=== PATIENT | female | born 1975 | race Two or more races ===

== ENCOUNTER 2024-04-08 14:17 | Emergency (ER) | payer MEDICAID, SELFPAY ==
[2024-04-08 14:18] VITALS: BP 156/88; PULSE 62; RESP 20; TEMP 36.8; O2SAT 96
[2024-04-08 14:22] VITALS: PULSE 76; RESP 20; O2SAT 96; BMI 32.3
--- NOTE | 2024-04-08 14:33 | XR_ITS ---
Examination: AP chest single view Technique one AP portable upright chest single view Exam date and time: April 08, 2024 1450 hrs. Comparison January 28, 2024 Indications: Coughing fever today. Findings: Fairly diffuse bilateral pneumonia Minor prominence left ventricle Moderate osteopenia Impression: Diffuse bilateral pneumonia
[2024-04-08] MEDS: ALBUTEROL/IPRATROPIUM (Duoneb) RT SOL 3 ML NEBU INH (14:44)
[2024-04-08 14:45] VITALS: PULSE 63; RESP 18; O2SAT 99
[2024-04-08] MEDS: predniSONE 20 MG TABLET 60 MG PO (14:46)
--- NOTE | 2024-04-08 15:25 | PD.EDURI ---
Upper Respiratory Inf. RME/HPI General Chief Complaint: Flu Like Symptoms Stated Complaint: flu like symptoms Time Seen by Provider: 04/08/24 14:28 Arrival date/time: 04/08/24 14:17 RME / HPI RME / HPI Narrative: This section includes all my notes and documentations, including HPI, PE, and ED course. Derrick Simon MD HPI: 48-year-old female here to be evaluated with about a week history of worsening cough, productive cough, purulent sputum, and dyspnea. No significant fever or chills or bodyaches. No chest pain. No other complaints. ROS: All negative except as documented in HPI. Physical Exam: General: Alert and oriented. Obviously ill with coughing. Eyes: Conjunctivae and lids clear. ENT: No nasal congestion. Pharynx normal. Tympanic membrane normal bilaterally. Neck: Supple. Heart: RRR. Lungs: No respiratory distress. Good air movement with mild rhonchi. Legs: No clubbing, cyanosis, edema. Skin: Warm and dry. Neuro: Alert and oriented X 3. I reviewed all diagnostic test results. My interpretation of the chest x-ray is infiltrates. COVID/influenza negative. At this point, diagnoses include pneumonia. Treatment here included prednisone and DuoNeb and Zithromax. Significant improvement noted. Recommended a trial of outpatient treatment. Based on my best medical judgment, made decision no further evaluation or treatment indicated at this time. Patient understands and agrees to the discharge instructions customized and printed, see below. Discharge instructions from Dr. Simon: --No physical exertion for 3 days to help rest the lungs. ?No smoking or exposure to smoking or pets or dust or cold or humidity. --Zithromax to kill the germs causing the pneumonia. --Prednisone to help decrease the swelling in the airways. --Albuterol 2 puffs every 4-6 hours for 3 days to help keep the airways open. Then as needed for cough or shortness of breath. --See a private doctor next week for recheck. --Seek immediate medical care with worsening or with any concerns. Derrick Simon MD Related Data Home Medications ?Medication ?Instructions ?Recorded ?Confirmed escitalopram oxalate 10 mg tablet 10 mg PO QDAY 01/28/24 01/28/24 gabapentin 600 mg tablet 600 mg PO TID 01/28/24 01/28/24 methadone 5 mg tablet 140 mg PO 0600 01/28/24 01/28/24 olanzapine 5 mg tablet 5 mg PO HS 01/28/24 01/28/24 Previous Rx's ?Medication ?Instructions ?Recorded albuterol sulfate 90 mcg/actuation 1 inh inhalation QID PRN shortness 02/02/24 aerosol inhaler of breath or wheezing #8.5 grams fluconazole 200 mg tablet 400 mg (2 x 200 mg) PO QDAY 3 02/02/24 (Diflucan) months #180 tabs albuterol sulfate 90 mcg/actuation 2 inh inhalation QID PRN shortness 04/08/24 aerosol inhaler of breath or wheezing #8.5 grams azithromycin 500 mg tablet 500 mg PO QDAY 3 days #3 tabs 04/08/24 (Zithromax TRI-ANNA) prednisone 20 mg tablet 40 mg PO DAILY 3 days #6 tabs 04/08/24 Allergies Allergy/AdvReac Type Severity Reaction Status Date / Time No Known Allergies Allergy Verified 04/08/24 14:25 Course Quality Measures none Orders Category Date Time Status Bedside COVID-19 Antigen Test NOW Care 04/08/24 14:33 Completed Bedside Influenza A&B Antigen Test NOW Care 04/08/24 14:33 Completed XR chest 1V portable Stat Exams 04/08/24 14:33 Completed Albuterol/Ipratr Rt Lorena [Duoneb Rt Lorena] Med 04/08/24 14:32 Discontinued 3 ml INH X1 ONE Azithromycin Po [Zithromax PO] Med 04/08/24 15:34 Discontinued 500 mg PO X1 ONE predniSONE Med 04/08/24 14:32 Discontinued 60 mg PO X1 ONE Vital Signs Vital signs: Vital Signs Temperature 98.3 F 04/08/24 14:18 Pulse Rate 62 04/08/24 14:18 Respiratory Rate 20 04/08/24 14:18 Blood Pressure 156/88 H 04/08/24 14:18 Pulse Oximetry (%) 96 04/08/24 14:18 Oxygen Delivery Method Room Air 04/08/24 14:18 Upper Respiratory Infection Patient data External records reviewed:: [facility] previous records Clinical information provided by:: patient Social determinants that could affect healthcare access:: substance use Patient has the following chronic illnesses:: Substance abuse How is presenting disease/condition affected by chronic disease/condition?: exacerbated by Evaluation data The following diagnostics were reviewed and interpreted by me:: lab results and radiology exam(s) Lab and/or radiology exams considered but not ordered:: None Interpretation Summary: Bronchitis Medications / Prescriptions Medications or Prescriptions considered but not ordered:: None Medication administrations:: Medication Administration History Discontinued Medications Albuterol/Ipratropium (Albuterol/Ipratropium (Duoneb) Rt Lorena 3 Ml Nebu) 3 ml INH X1 ONE Stop: 04/08/24 14:33 Last Admin: 04/08/24 14:44 Dose: 3 ml Documented By: RG Azithromycin (Azithromycin 250 Mg Tablet) 500 mg PO X1 ONE Stop: 04/08/24 15:35 Last Admin: 04/08/24 15:39 Dose: 500 mg Documented By: Prednisone (Prednisone 20 Mg Tablet) 60 mg PO X1 ONE Stop: 04/08/24 14:33 Last Admin: 04/08/24 14:46 Dose: 60 mg Documented By: Prednisone and DuoNeb and Zithromax Consultations Consultation(s) initiated? (list below): No Diagnosis Upper Respiratory Differential Diagnosis: upper respiratory infection, croup, otitis media, sinusitis, viral infection, bronchitis, influenza, pharyngitis and other (Pneumonia) Most likely diagnosis given after review of the tests above:: Bronchitis Admission Indicated Admission indicated?: not indicated Admission Request Was there a request for admission?: No Disposition Plan Disposition Plan: Discharge Discharge Attestation Discharge Attestation: The patient and all family members were given an opportunity to ask questions and understood the discharge instructions. Discharge instructions specifically effects, indications for sooner follow up or return to the emergency department, and the expected course of current diagnosis. Patient condition: Stable Discharge Plan Plan Patient Disposition: HOME (Self Care) Prescriptions/Referrals Prescriptions/Med Rec: New prednisone 20 mg tablet 40 mg PO DAILY 3 Days Qty: 6 0RF Taper: Prednisone Taper 20 mg DAILY for 2 Days and 0 Hour 10 mg DAILY for 2 Days and 0 Hour 5 mg DAILY for 7 Days and 0 Hour albuterol sulfate 90 mcg/actuation HFA aerosol inhaler 2 inh inhalation QID PRN (Reason: shortness of breath or wheezing) Qty: 8.5 0RF azithromycin [Zithromax TRI-ANNA] 500 mg tablet 500 mg PO QDAY 3 Days Qty: 3 0RF No Action gabapentin 600 mg tablet 600 mg PO TID Patient Comments: TAKE 1 TABLET BY MOUTH THREE TIMES A DAY olanzapine 5 mg tablet 5 mg PO HS Patient Comments: TAKE 1 TABLET BY MOUTH EVERYDAY AT BEDTIME methadone 5 mg Tablet 140 mg PO 0600 escitalopram oxalate 10 mg tablet 10 mg PO QDAY fluconazole [Diflucan] 200 mg tablet 400 mg PO QDAY 90 Days Qty: 180 0RF albuterol sulfate 90 mcg/actuation HFA aerosol inhaler 1 inh inhalation QID PRN (Reason: shortness of breath or wheezing) Qty: 8.5 0RF Referrals: Karena Tsai MD [Primary Care Provider] - In 1 week Problem List Clinical Impression: Pneumonia Patient/Caregiver Discharge Instructions Discharge Activity: activity as tolerated Education Materials: ED Pneumonia (Adult) Additional Instructions: Discharge instructions from Dr. Simon: --No physical exertion for 3 days to help rest the lungs. ?No smoking or exposure to smoking or pets or dust or cold or humidity. --Zithromax to kill the germs causing the pneumonia. --Prednisone to help decrease the swelling in the airways. --Albuterol 2 puffs every 4-6 hours for 3 days to help keep the airways open. Then as needed for cough or shortness of breath. --See a private doctor next week for recheck. --Seek immediate medical care with worsening or with any concerns. Print Language: Kinyarwanda Stand Alone Forms: Елена Award Info., Patient Portal Info Letter
[2024-04-08] MEDS: AZITHROMYCIN 250 MG TABLET 500 MG PO (15:39)
== END 2024-04-08 15:47 | disposition home or self-care (01) ==
PROVIDERS: Emergency Provider Emergency Medicine; PCP Family Medicine
DX: J18.9 Pneumonia, unspecified organism (principal)
CPT/HCPCS: 71045; 87400; 87811; 94640; 99283; A9270; J7512

== ENCOUNTER 2024-06-08 09:01 | Emergency (ER) | payer MEDICAID, SELFPAY ==
[2024-06-08] VITALS (9 sets, daily range): BP systolic 116–165; BP diastolic 70–81; PULSE 64–121; RESP 11–24; TEMP 36.7–37.1; O2SAT 88–99; BMI 39.4
[2024-06-08] MEDS: NALOXONE INJ 1 MG/ML SYRINGE 2 ML 0.4 MG IV (09:15)
[2024-06-08] MEDS: ALBUTEROL/IPRATROPIUM (Duoneb) RT SOL 3 ML NEBU INH (09:16)
--- NOTE | 2024-06-08 09:23 | EKG_ITS ---
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
--- NOTE | 2024-06-08 09:23 | XR_ITS ---
Examination: AP chest single view TECHNIQUE: AP portable semiupright chest single view Exam date and time: March 08, 2025 1023 hours Comparison April 08, 2024 INDICATIONS: Chest pain today. FINDINGS: Mild to moderate CHF Consider superimposed bilateral pneumonia Severe osteopenia with multiple old right-sided rib fractures IMPRESSION: Mild to moderate CHF Consider superimposed bilateral pneumonia
[2024-06-08 09:41] LABS: Lactate (Lactic Acid) 1.4 mMol/L (0.4-2.0)
--- NOTE | 2024-06-08 09:47 | PD.EDNV ---
Nausea/Vomit./Diarrhea-RME/HPI General Chief complaint: Shortness of Breath/Dyspnea Stated complaint: NAUSEA / VOMITING WITH SOB POST METHADONE Time Seen by Provider: 06/08/24 09:22 Arrival date/time: 06/08/24 09:01 RME / HPI RME / HPI Narrative: 48 year old female with history of previous IV drug use and opiate dependance, on methadone, presents to the ED BIBA from home for nausea, vomiting, and lethargy today. Per medics report, on scene patient was very lethargic and family there had reported she became that way after taking 145mg of Methadone this morning. State patient was saturating 95% on room air and maintaining airway. Prehospital BS 138. On arrival to ED, no further history was obtainable from patient due to mental status. Related Data Home Medications ?Medication ?Instructions ?Recorded ?Confirmed escitalopram oxalate 10 mg tablet 10 mg PO QDAY 01/28/24 01/28/24 gabapentin 600 mg tablet 600 mg PO TID 01/28/24 01/28/24 methadone 5 mg tablet 140 mg PO 0600 01/28/24 01/28/24 olanzapine 5 mg tablet 5 mg PO HS 01/28/24 01/28/24 Previous Rx's ?Medication ?Instructions ?Recorded albuterol sulfate 90 mcg/actuation 1 inh inhalation QID PRN shortness 02/02/24 aerosol inhaler of breath or wheezing #8.5 grams albuterol sulfate 90 mcg/actuation 2 inh inhalation QID PRN shortness 04/08/24 aerosol inhaler of breath or wheezing #8.5 grams azithromycin 250 mg tablet 250 mg PO QDAY 4 days #4 tabs 06/08/24 Allergies Allergy/AdvReac Type Severity Reaction Status Date / Time No Known Allergies Allergy Verified 04/08/24 14:25 Review of Systems Review of Systems ROS Unobtainable: unobtainable due to mental status Past Medical History Past Medical History GASTROINTESTINAL: Positive Gall Bladder Disease and Obesity MUSCULOSKELETAL: Positive Musculoskeletal Disorders OTHER HISTORY: Positive Blood Transfusions Surgical History SURGICAL: Positive Abdominal Surgery, Joint Replacement and Section Social History SMOKING STATUS: Current every day smoker SUBSTANCE USE: former substance user and heroin ED Exam Narrative Physical exam: GENERAL APPEARANCE: Obese, there is vomit on chin, snoring respirations, responsive to painful stimuli, patient unable to provide any history HEENT: Normocephalic, atraumatic; pupils equal, round, reactive to light; mucous membranes pink, moist; oropharynx clear NECK: Supple LUNGS: wheezes with snoring respirations, no rales, no rhonchi HEART: Regular rate, regular rhythm; normal S1, S2; no murmurs ABDOMEN: slightly distended; multiple circular bruising in various stages of healing on abdomen; normal BS; soft, no guarding, no rebound; no masses, no organomegaly, no hernia BACK: no CVA tenderness EXTREMITIES: atraumatic; no edema NEUROLOGIC: responsive to painful stimuli, patient unable to provide any history SKIN: warm, dry, normal color; no rashes Course Course Course Narrative: 0916: Patient given 0.25mg of Narcan with change, patient screaming and yelling get this off of me and help . 1500: Patient responds to name and is requesting water. 1730: Patient ate a sandwich and tolerated well. Will DC home. Quality Measures none Orders Category Date Time Status Complaint Evaluation Supervisor NOW Care 06/08/24 09:23 Active EKG (ED ONLY) *Do not use* NOW Care 06/08/24 09:23 Completed EKG (ED Only) Stat Exams 06/08/24 09:23 Draft XR chest 1V portable Stat Exams 06/08/24 09:23 Completed Alcohol, Blood Medical Stat Lab 06/08/24 09:34 Completed B-Type Natriuretic Peptide Stat Lab 06/08/24 09:34 Completed Blood Culture (Lab) Stat Lab 06/08/24 10:08 Received CBC Stat Lab 06/08/24 09:34 Completed Comprehensive Metabolic Panel Stat Lab 06/08/24 09:34 Completed Drug Screen,Urine Stat Lab 06/08/24 09:56 Completed Lactate (Lactic Acid) Stat Lab 06/08/24 09:34 Completed Lipase Stat Lab 06/08/24 09:34 Completed Magnesium Stat Lab 06/08/24 09:34 Completed Partial Thromboplastin Time Stat Lab 06/08/24 09:34 Completed Procalcitonin Stat Lab 06/08/24 09:34 Completed Prothrombin Time with INR Stat Lab 06/08/24 09:34 Completed Troponin I Stat Lab 06/08/24 09:34 Completed UA, C/S IF [Urinalysis, C/S if Indicated] Stat Lab 06/08/24 09:56 Completed Albuterol/Ipratr Rt Lorena [Duoneb Rt Lorena] Med 06/08/24 09:07 Discontinued 3 ml .ROUTE .STK-MED ONE Albuterol/Ipratr Rt Lorena [Duoneb Rt Lorena] Med 06/08/24 09:16 Discontinued 3 ml INH X1 ONE Azithromycin Inj [Zithromax Inj] 500 mg Med 06/08/24 14:21 Discontinued Sodium Chloride 0.9% 250 ml [Ns] 250 ml IV X1 NALOXONE INJ (Syringe) [Narcan Inj (Syringe)] Med 06/08/24 09:06 Discontinued 0.4 mg IV X1 ONE Ondansetron Inj [Zofran Inj] Med 06/08/24 09:26 Discontinued 4 mg IV X1 ONE Vital Signs Vital signs: Vital Signs Temperature 98.0 F 06/08/24 09:14 Pulse Rate 82 06/08/24 09:14 Respiratory Rate 21 H 06/08/24 09:14 Blood Pressure 135/81 H 06/08/24 09:14 Pulse Oximetry (%) 92 L 06/08/24 09:14 Oxygen Delivery Method Room Air 06/08/24 09:14 Pulse ox is 92% on room air which is adequate. Nausea/Vomiting/Diarrhea MDM Narrative MDM Narrative:: Argenis Cast am scribing for and in the presence of Dr. Fu. Patient data External records reviewed:: [facility] previous records (I reviewed admission from 01/28/2024 through 02/03/2024) and EMS form Clinical information provided by:: EMS Social determinants that could affect healthcare access:: substance use (Hx of IV heroin use, methamphetamine use. Currently on Methadone. ) Patient has the following chronic illnesses:: previous IV drug use and opiate dependance, on methadone How is presenting disease/condition affected by chronic disease/condition?: exacerbated by Evaluation data The following diagnostics were reviewed and interpreted by me:: lab results, radiology exam(s) and EKG tracing(s) (Sinus rhythm, rate 95, no acute ischemic changes, no STEMI ) Lab and/or radiology exams considered but not ordered:: None Interpretation Summary: Ordering Physician: Criselda Fu MD Date of Service: 06/08/24 Procedure(s): XR chest 1V portable Accession Number(s): [id number] cc: Benoit Hinson MD; Criselda Fu MD~ Examination: AP chest single view TECHNIQUE: AP portable semiupright chest single view Exam date and time: March 08, 2025 1023 hours Comparison April 08, 2024 INDICATIONS: Chest pain today. FINDINGS: Mild to moderate CHF Consider superimposed bilateral pneumonia Severe osteopenia with multiple old right-sided rib fractures IMPRESSION: Mild to moderate CHF Consider superimposed bilateral pneumonia Dictated By: Benoit Hinson MD Signed By: <Electronically signed by Benoit Hinson MD in OV> 06/08/24 1104 Medications / Prescriptions Medications / Prescriptions considered but not ordered:: None Medication administrations:: Medication Administration History Discontinued Medications Albuterol/Ipratropium (Albuterol/Ipratropium (Duoneb) Rt Lorena 3 Ml Nebu) Confirm Administered Dose 3 ml .ROUTE .STK-MED ONE Stop: 06/08/24 09:08 Last Admin: 06/08/24 10:45 Dose: Not Given Documented By: RD Non-Admin Reason: Duplicate Medication on eMAR Albuterol/Ipratropium (Albuterol/Ipratropium (Duoneb) Rt Lorena 3 Ml Nebu) 3 ml INH X1 ONE Stop: 06/08/24 09:17 Last Admin: 06/08/24 09:16 Dose: 3 ml Documented By: MR Azithromycin 500 mg/ Sodium (Chloride) 250 mls @ 250 mls/hr IV X1 ONE Stop: 06/08/24 15:20 Last Admin: 06/08/24 16:44 Dose: 250 mls/hr Documented By: ROBERTO Naloxone HCl (Naloxone Inj 1 Mg/Ml Syringe 2 Ml) 0.4 mg IV X1 ONE Stop: 06/08/24 09:07 Last Admin: 06/08/24 09:15 Dose: 0.4 mg Documented By: ROBERTO Comments: INITIAL DOSE GIVEN 0.25MG Ondansetron HCl (Ondansetron Inj 2 Mg/Ml Inj 2 Ml) 4 mg IV X1 ONE; Protocol Stop: 06/08/24 09:27 Last Admin: 06/08/24 10:00 Dose: Not Given Documented By: RD Non-Admin Reason: Patient Refused See above Consultations Consultation(s) initiated? (list below): No Diagnosis Nausea Differential Diagnosis: gastroenteritis, drug-induced nausea and vomiting, dehydration and other (Overdose ) Most likely diagnosis given after review of the tests above:: SOB PNA Vomiting Admission Indicated Admission indicated?: not indicated Admission Request Was there a request for admission?: No Disposition Plan Disposition Plan: Discharge Discharge Attestation Discharge Attestation: The patient and all family members were given an opportunity to ask questions and understood the discharge instructions. Discharge instructions specifically effects, indications for sooner follow up or return to the emergency department, and the expected course of current diagnosis. Patient condition: Stable Discharge Plan Plan Patient Disposition: HOME (Self Care) Prescriptions/Referrals Prescriptions/Med Rec: New azithromycin 250 mg tablet 250 mg PO QDAY 4 Days Qty: 4 0RF Rx Instructions: start on day 2 of therapy No Action albuterol sulfate 90 mcg/actuation HFA aerosol inhaler 2 inh inhalation QID PRN (Reason: shortness of breath or wheezing) Qty: 8.5 0RF gabapentin 600 mg tablet 600 mg PO TID Patient Comments: TAKE 1 TABLET BY MOUTH THREE TIMES A DAY olanzapine 5 mg tablet 5 mg PO HS Patient Comments: TAKE 1 TABLET BY MOUTH EVERYDAY AT BEDTIME methadone 5 mg Tablet 140 mg PO 0600 escitalopram oxalate 10 mg tablet 10 mg PO QDAY albuterol sulfate 90 mcg/actuation HFA aerosol inhaler 1 inh inhalation QID PRN (Reason: shortness of breath or wheezing) Qty: 8.5 0RF Referrals: Felicia Hodges AMMUNITION SPECIALIST [Primary Care Provider] - In 1 week Problem List Clinical Impression: SOB (shortness of breath), Pneumonia, Vomiting Patient/Caregiver Discharge Instructions Education Materials: Self-Care for Vomiting and Diarrhea, ED Pneumonia (Adult) Print Language: Sammarinese Stand Alone Forms: Елена Award Info., Patient Portal Info Letter
[2024-06-08 09:59] LABS: Basophils % (Auto) 0 % (0-2.5); Eosinophils % (Auto) 0 % (0-10); Hematocrit 31.6 % (36.0-46.0); Hemoglobin 10.1 g/dL (12.0-16.0); Immature Granulocytes % (Auto) 0 % (0-0); Immature Granulocytes Auto 0.01 Thou/mm3 (0.00-0.00); Lymphocytes % (Auto) 24 % (10-50); Mean Corpuscular Hemoglobin 27.8 pg (25.0-35.0); Mean Corpuscular Volume 87 fL (80-100); Monocytes # (Auto) 0.5 Thou/mm3 (0.0-0.8); Monocytes % (Auto) 11 % (0-12); Neutrophils # (Auto) 2.7 Thou/mm3 (1.8-7.7); Neutrophils % (Auto) 65 % (37-80); Nucleated Red Blood Cell % 0 /100 WBC (0); Platelet Count 115 Thou/mm3 (140-440); RDW Standard Deviation 48.9 fL (36.4-46.3); Red Blood Count 3.63 Miln/mm3 (4.00-5.20); White Blood Count 4.2 Thou/mm3 (3.6-11.0)
[2024-06-08 10:09] LABS: Partial Thromboplastin Time 28.5 Seconds (22.0-36.0)
[2024-06-08 10:21] LABS: Collection Type, Urine Catheter
[2024-06-08 10:24] LABS: B-Type Natriuretic Peptide 22 pg/mL (0-100)
[2024-06-08 10:30] LABS: Bilirubin,Urine Negative (Negative); Blood,Urine Negative (Negative); Clarity,Urine Clear (Clear/Hazy); Color,Urine Lt-Yellow (Lt Yel-Yel); Culture Indicated,Urine Not Indicated; Glucose, Urine Negative (Negative); Ketones,Urine Negative (Negative); Leukocyte Esterase,Urine Negative (Negative); Nitrite,Urine Negative (Negative); Protein,Urine Negative (Neg - Trace); RBC,Urine < 1 /hpf (0-3); Specific Gravity,Urine 1.019 (1.001-1.035); Squamous Epithelial Cell,Urine 2 /hpf (0-5); Urobilinogen,Urine Negative mg/dL (0.0-1.0); WBC,Urine 1 /hpf (0-5)
[2024-06-08 10:44] LABS: Amphetamine/Methamp Scrn,U Positive (Negative); Barbiturate Screen,Urine Negative (Negative); Benzodiazepines Screen,Urine Negative (Negative); Benzoylecgonine Screen, Ur Negative (Negative); Fentanyl Screen,Urine Negative (Negative); Opiate Screen,Urine Positive (Negative); THC Screen,Urine Negative (Negative)
[2024-06-08 10:44] LABS: Alanine Aminotransferase 46 U/L (10-49); Albumin, Serum 3.8 gm/dL (3.5-5.0); Albumin/Globulin Ratio 1.2 (1.2-2.2); Alcohol, Blood Medical < 3.0 mg/dL (0-10.0); Alkaline Phosphatase 122 U/L (46-116); Anion Gap 6 (7-16); Aspartate Amino Transferase 61 U/L (0-34); BUN/Creatinine Ratio 26 Ratio (12-20); Bilirubin,Total 0.3 mg/dL (0.3-1.2); Blood Urea Nitrogen 13 mg/dL (9-23); Calcium (Corrected) 9.2 mg/dL (8.5-10.1); Carbon Dioxide 29.8 mMol/L (20.0-31.0); Chloride 106 mMol/L (98-107); Creatinine (Component) 0.5 mg/dL (0.6-1.3); Estimated Creatinine Clearance 158.4 mL/min (>60); Globulin 3.2 gm/dL (2.3-3.5); Glucose 105 mg/dL (74-106); Lipase 23 U/L (12-53); Magnesium 1.9 mg/dL (1.6-2.6); Osmolality,Calculated 283 (275-295); Potassium 3.8 mMol/L (3.4-5.1); Procalcitonin 0.06 ng/ml (0.0-0.49); Sodium 142 mMol/L (136-145); Troponin I < 0.002 ng/mL (0.0-0.045); eGFR > 60 See Note
[2024-06-08] MEDS: AZITHROMYCIN INJ 500 MG in SODIUM CHLORIDE 0.9% 250 ML 250 ML 250 MG IV (16:44)
[2024-06-08] MEDS: MORPHINE SULF INJ 10 MG/ML VIAL 4 MG IVP (18:38)
== END 2024-06-08 19:15 | disposition home or self-care (01) ==
PROVIDERS: Emergency Provider Emergency Medicine; PCP Nurse Practitioner Family
DX: J18.9 Pneumonia, unspecified organism (principal); F11.20 Opioid dependence, uncomplicated; F17.290 Nicotine dependence, other tobacco product, uncomplicated; E66.9 Obesity, unspecified; Z68.39 Body mass index [BMI] 39.0-39.9, adult
CPT/HCPCS: 51701; 36415; 71045; 80053; 80307; 80320; 81001; 83605; 83690; 83735; 83880; 84145; 84484; 85025; 85610; 85730; 87040; 94640; 96365; 96375; 99284; J0456; J2270; J2310; J7050; G0480

== ENCOUNTER 2024-11-27 00:29 | Emergency (ER) | payer MEDICAID, SELFPAY ==
[2024-11-27 00:31] VITALS: PULSE 100; RESP 18; O2SAT 99; BMI 33.9
[2024-11-27 00:43] VITALS: BP 132/81; PULSE 132; RESP 18; TEMP 36.6; O2SAT 95
--- NOTE | 2024-11-27 01:40 | PD.EDRME ---
Rapid Medical Screening Exam RME Arrival date/time: 11/27/24 00:29 Chief Complaint: Extremity Problem,Nontraumatic Time Seen by Provider: 11/27/24 00:59 Vital signs: Vital Signs Temperature 97.9 F 11/27/24 00:43 Pulse Rate 132 H 11/27/24 00:43 Respiratory Rate 18 11/27/24 00:43 Blood Pressure 132/81 H 11/27/24 00:43 Pulse Oximetry (%) 95 11/27/24 00:43 Oxygen Delivery Method Room Air 11/27/24 00:43 Vital signs reviewed by provider: Yes RME Narrative: 49-year-old female presents to the ED with complaint of severe left lower extremity pain, edema, and redness. She denies fever but has had chills. She has had some nausea, but no vomiting or diarrhea. She states she has had an injury approximately 4 to 6 weeks ago. She has a prescription for clindamycin 3 tablets, 3 times daily for 10 days in her possession, which she states was prescribed for right elbow infection back in September. She denies any heart problems. She takes methadone 130 mg daily for previous narcotic addiction. I have greeted and performed a focused initial assessment of this patient. A comprehensive ED assessment and evaluation of the patient, analysis of all test results, and completion of the medical decision making process will be conducted by additional ED providers.
--- NOTE | 2024-11-27 03:02 | PD.EDEXREM ---
ED Extremity Problem RME/HPI General Chief complaint: Extremity Problem,Nontraumatic Stated complaint: SWELLING AND PAIN TO BLE Time Seen by Provider: 11/27/24 00:59 Arrival date/time: 11/27/24 00:29 RME / HPI RME / HPI Narrative: 49-year-old female presents to the ED with complaint of severe left lower extremity pain, edema, and redness. She denies fever but has had chills. She has had some nausea, but no vomiting or diarrhea. She states she has had an injury approximately 4 to 6 weeks ago. She has a prescription for clindamycin 3 tablets, 3 times daily for 10 days in her possession, which she states was prescribed for right elbow infection back in September. She denies any heart problems. She takes methadone 130 mg daily for previous narcotic addiction. I have greeted and performed a focused initial assessment of this patient. A comprehensive ED assessment and evaluation of the patient, analysis of all test results, and completion of the medical decision making process will be conducted by additional ED providers. This section includes all my notes and documentations, including HPI, PE, and ED course. Derrick Simon MD HPI: 49yo female here with leg pain and swelling (L > R). Reports chronic but severely worse in the past 24 hours. Has been wheelchair-bound due to severe left knee pain for the past 2 months. Left knee replacement is pending. She also reports left lower leg redness. No obvious fever or chills. No other complaints. ROS: All negative except as documented in HPI. Physical Exam: General: Alert and oriented. No acute distress when remaining still. Eyes: Conjunctivae and lids clear. ENT: No nasal congestion. Neck: Supple. Heart: RRR. Lungs: No respiratory distress. Good air movement. No significant rhonchi, wheezing, rales. Abdomen: Soft and nontender. Legs: Left lower leg remarkable for severe edema/erythema/calor/tenderness. Skin: Warm and dry. Neuro: Alert and oriented X 3. I reviewed all diagnostic test results. My interpretation of the EKG is sinus rhythm with no ST-T changes. My interpretation of the chest x-ray is equivocal infiltrates and/or vascular congestion, official radiology report is pending. My review of the US venous doppler bilateral leg report is no DVT. Blood tests remarkable for ESR 113, D-Dimer 2400, CRP 2.3, and LFT elevation. Urine specimen pending. CT scans pending. At 6 AM on 11/27/2024, the care of the patient was transferred to Dr. Fu. Derrick Simon MD Related Data Home Medications ?Medication ?Instructions ?Recorded ?Confirmed escitalopram oxalate 10 mg tablet 10 mg PO QDAY 01/28/24 01/28/24 gabapentin 600 mg tablet 600 mg PO TID 01/28/24 01/28/24 methadone 5 mg tablet 140 mg PO 0600 01/28/24 01/28/24 olanzapine 5 mg tablet 5 mg PO HS 01/28/24 01/28/24 Previous Rx's ?Medication ?Instructions ?Recorded albuterol sulfate 90 mcg/actuation 1 inh inhalation QID PRN shortness 02/02/24 aerosol inhaler of breath or wheezing #8.5 grams albuterol sulfate 90 mcg/actuation 2 inh inhalation QID PRN shortness 04/08/24 aerosol inhaler of breath or wheezing #8.5 grams Allergies Allergy/AdvReac Type Severity Reaction Status Date / Time No Known Allergies Allergy Verified 11/27/24 00:30 Review of Systems Review of Systems Systems Reviewed: All systems reviewed, normal except as documented Past Medical History Past Medical History NEUROLOGIC: Negative Cerebrovascular Accident, Transient Ischemic Attacks (TIA), Dementia, Alzheimer's Disease, Parkinson's Disease, Brain Tumor, Meningitis, Seizures, Epilepsy, Multiple Sclerosis, Cerebral Palsy, Guillain-Mcrae Hel[place] Syndrome, Spina Bifida, Paralysis, Peripheral Neuropathy, Davis's Palsy, Subdural Hematoma, Migraine, Head Trauma, Spinal Cord Injury or Traumatic Brain Injury CARDIAC: Negative Cardiac Disorders or Congestive Heart Failure RESPIRATORY: Negative Chronic Obstructive Pulmonary Disease (COPD), Asthma, Bronchitis, Emphysema, Pneumonia, Cystic Fibrosis, Pulmonary Edema or Sleep Apnea GASTROINTESTINAL: Positive Gall Bladder Disease and Obesity; Negative Hepatitis, Pancreatitis, Gastrointestinal Bleed, Ulcerative Colitis, Ulcer, Colorectal Cancer, Irritable Bowel, Obstructive Bowel, Hiatal Hernia, Hemorrhoids or Gastroesophageal Reflux Disease GENITOURINARY: Negative Genitourinary Disorders, Renal Disease, Kidney Stones, Polycystic Kidney Disease, Neurogenic Bladder, Inguinal Hernia, Dialysis, Prostate Cancer or Benign Prostatic Hyperplasia REPRODUCTIVE: Negative Breast Cancer, Endometriosis, Genital Herpes, Gonorrhea, Pelvic Inflammatory Disease, Previous Pregnancies, Syphilis, Testicular Cancer or Uterine Prolapse MUSCULOSKELETAL: Positive Musculoskeletal Disorders; Negative Muscular Dystrophy, Bone Cancer or Scoliosis ENT: Negative Cataracts, Glaucoma, Blind, Retinal Detachment, Macular Degeneration, Ear Infection, Deafness, Head Trauma or Eye Prosthesis ENDOCRINE: Negative Diabetes Mellitus Type 1 or Diabetes Mellitus Type 2 HEMATOLOGIC: Negative Blood Disorders, Anemia, Leukemia, Hemophilia, Thalassemia or Sickle Cell Disease PSYCHO/SOCIAL: Negative Psychiatric Problems, Schizophrenia, Recreational Drug Use, Bipolar Disorder, Depression, Anxiety, Behavior Problems, Self-Mutilation, Attention Deficit Disorder, Attention Deficit Hyperactivity Disorder, Depression, Post Traumatic Stress Disorder or Eating Disorder OTHER HISTORY: Positive Blood Transfusions; Negative Hospitalization, Autoimmune Disease, Down Syndrome, Autism, Developmental Delay, Shingles, Falls, Organ Transplant, Chemotherapy, Radiation Therapy, Hyperbaric Therapy, Human Immunodeficiency Virus (HIV), Measles, Mumps, Rubella (Icelandic Measles), Pertussis, Cancer, Breast Cancer, Cervical Cancer, Colorectal Cancer, Lung Cancer, Ovarian Cancer, Prostate Cancer or Testicular Cancer Surgical History SURGICAL: Positive Abdominal Surgery, Joint Replacement and Section; Negative Cardiac Surgery, Open Heart Surgery, Coronary Artery Bypass Graft, Valve Replacement, Vascular Surgery, Coronary Stent, Cardiac Catheterization, Pacemaker, Angiogram, Auto Implanted Cardiovert Defib, Carotid Endarterectomy, Endocrine Surgery, Thyroidectomy, Ear Surgery, Tympanostomy Tube, Eye Surgery, Nose Surgery, Oral Surgery, Tonsillectomy, Adenoidectomy, Cochlear Implant, Corneal Transplant, Throat Surgery, Tracheostomy, Gastric Bypass Surgery, Gastrostomy, Bowel Surgery, Nephrectomy, Transurethral Resection, Amputation, Open Reduction Internal Fixation, Arthroscopy, Neurologic Surgery, Brain Shunt, Mastectomy, Lumpectomy, Hysterectomy, Tubal Ligation or Organ Transplant Social History SMOKING STATUS: Current some day smoker SUBSTANCE USE: former substance user and heroin ED Exam Narrative Physical exam: As noted in HPI. Course Quality Measures none Orders Category Date Time Status CT Screening NOW Care 11/27/24 03:08 Active EKG (ED ONLY) *Do not use* NOW Care 11/27/24 03:08 Completed Saline [Insert IV] NOW Care 11/27/24 03:04 Active Straight [In and Out Catheter] X1 Care 11/27/24 03:[address] angio chest Stat Exams 11/27/24 03:[address] lower extremity BI w Stat Exams 11/27/24 03:04 Ordered EKG (ED Only) Stat Exams 11/27/24 03:08 Ordered US venous doppler LE BI Stat Exams 11/27/24 03:09 Taken XR chest 1V portable Stat Exams 11/27/24 03:09 Taken Alcohol, Blood Medical Stat Lab 11/27/24 03:12 Completed BNP [B-Type Natriuretic Peptide] Stat Lab 11/27/24 03:12 Completed Bilirubin,Direct Stat Lab 11/27/24 03:12 Completed Blood Culture (Lab) Stat Lab 11/27/24 03:32 Received CBC Stat Lab 11/27/24 03:12 Completed CMP [Comprehensive Metabolic Panel] Stat Lab 11/27/24 03:12 Completed CRP [C-Reactive Protein] Stat Lab 11/27/24 03:12 Completed D-Dimer Stat Lab 11/27/24 03:12 Completed Drug Screen,Urine Stat Lab 11/27/24 03:10 Ordered ESR [Sed Rate (ESR)] Stat Lab 11/27/24 03:12 Completed HCG Qualitative,Urine Stat Lab 11/27/24 03:10 Ordered HCG,Qualitative Serum Stat Lab 11/27/24 03:12 Completed Lactate (Lactic Acid) Stat Lab 11/27/24 03:12 Completed Magnesium Stat Lab 11/27/24 03:12 Completed PT [Prothrombin Time with INR] Stat Lab 11/27/24 03:12 Completed PTT [Partial Thromboplastin Time] Stat Lab 11/27/24 03:12 Completed Procalcitonin Stat Lab 11/27/24 03:12 Completed Troponin I Stat Lab 11/27/24 03:12 Completed UA, C/S IF [Urinalysis, C/S if Indicated] Stat Lab 11/27/24 03:10 Ordered Vital Signs Vital signs: Vital Signs Temperature 97.9 F 11/27/24 00:43 Pulse Rate 132 H 11/27/24 00:43 Respiratory Rate 18 11/27/24 00:43 Blood Pressure 132/81 H 11/27/24 00:43 Pulse Oximetry (%) 95 11/27/24 00:43 Oxygen Delivery Method Room Air 11/27/24 00:43 Extremity Problem MDM Narrative MDM Narrative:: 49yo female here with leg pain and swelling (L > R). Reports chronic but severely worse in the past 24 hours. Has been wheelchair-bound due to severe left knee pain for the past 2 months. Left knee replacement is pending. She also reports left lower leg redness. No obvious fever or chills. No other complaints. Patient data External records reviewed:: [facility] previous records (Per chart review, patient was seen here on 06/08/24 for pneumonia.) Clinical information provided by:: patient Social determinants that could affect healthcare access:: none Patient has the following chronic illnesses:: none How is presenting disease/condition affected by chronic disease/condition?: no chronic disease Evaluation data The following diagnostics were reviewed and interpreted by me:: lab results, radiology exam(s) and EKG tracing(s) (My interpretation of the EKG: NSR (86 bpm) with no ST-T changes. Derrick Simon MD) Lab and/or radiology exams considered but not ordered:: none Interpretation Summary: I reviewed all diagnostic test results. My interpretation of the EKG is sinus rhythm with no ST-T changes. My interpretation of the chest x-ray is equivocal infiltrates and/or vascular congestion, official radiology report is pending. My review of the US venous doppler bilateral leg report is no DVT. Blood tests remarkable for ESR 113, D-Dimer 2400, CRP 2.3, and LFT elevation. Urine specimen pending. CT scans pending. Medications / Prescriptions Medications or Prescriptions considered but not ordered:: none Medication administrations:: none Consultations Consultation(s) initiated? (list below): No Diagnosis Extremity Problem Differential Diagnosis: herpes zoster, gout, cellulitis, superficial thrombophlebitis, deep venous thrombosis of upper extremity, lower extremity edema and deep vein thrombosis of lower extremity Most likely diagnosis given after review of the tests above:: Complete diagnostic test results are pending. Admission Indicated Admission indicated?: not indicated Explain why admission is indicated or not indicated:: Diagnostics pending at sign out. Admission Request Was there a request for admission?: No Disposition Plan Disposition Plan: other (specify) (Signed out to Dr. Fu at 6 AM.) Discharge Plan Prescriptions/Referrals Prescriptions/Med Rec: No Action albuterol sulfate 90 mcg/actuation HFA aerosol inhaler 2 inh inhalation QID PRN (Reason: shortness of breath or wheezing) Qty: 8.5 0RF gabapentin 600 mg tablet 600 mg PO TID Patient Comments: TAKE 1 TABLET BY MOUTH THREE TIMES A DAY olanzapine 5 mg tablet 5 mg PO HS Patient Comments: TAKE 1 TABLET BY MOUTH EVERYDAY AT BEDTIME methadone 5 mg Tablet 140 mg PO 0600 escitalopram oxalate 10 mg tablet 10 mg PO QDAY albuterol sulfate 90 mcg/actuation HFA aerosol inhaler 1 inh inhalation QID PRN (Reason: shortness of breath or wheezing) Qty: 8.5 0RF Referrals: No Primary/Family,Physician [Primary Care Provider] - In 1 week Problem List Clinical Impression: Leg edema Patient/Caregiver Discharge Instructions Print Language: Yoruba
[2024-11-27 03:03] VITALS: BP 155/97; PULSE 87; RESP 22; O2SAT 97
--- NOTE | 2024-11-27 03:04 | XR_ITS ---
Examination: CT bilateral lower extremities with intravenous contrast 2-D sagittal reconstructions. 2-D coronal reconstructions. 3-D reconstructions. Date and time of exam:November 27, 2024 0823 hours INDICATIONS: Lower leg redness swelling and pain getting one month ago CTDI: vol (mGy):13.8 DLP: (mGycm):1591 Technique: Multiple 1.25 mm axial sections of the bilateral lower extremities post intravenous administration 100 cc Isovue-370 have been obtained. 2-D sagittal and coronal reconstructions have been obtained. 3-D reconstructions have been obtained. Low dose protocols were performed. One or more of the following dose reduction techniques were used; automated exposure control, adjustment of the mA and/or KV according to patient size, use of iterative reconstruction technique. Findings: Distended urinary bladder Contrast opacification of vascular structures is relatively poor Mild edema in the subcutaneous fatty tissue lateral thigh region bilaterally Moderate bilateral knee effusions More pronounced edema surrounding the lower legs in the subcutaneous fatty tissue. No soft tissue abscess Negative for osteomyelitis IMPRESSION: Cellulitis pattern especially surrounding the lower legs. No soft tissue abscess Negative for osteomyelitis
--- NOTE | 2024-11-27 03:08 | XR_ITS ---
Examination: CTA chest with intravenous contrast 2-D reconstructions 3-D reconstructions, vascular Date and time of exam: November 27, 2024 0806 hours, comparison January 29, 2024 INDICATIONS: Chest pain shortness of breath today CTDI: vol (mGy) 15 DLP: (mGycm) 326 Technique: Multiple axial sections of the thorax have been obtained. 3 mm slice thickness, from below the hemidiaphragms to above the apices of the lungs. Mediastinal and lung density settings have been obtained. 2-D sagittal and coronal reconstructions. 3-D angiographic renderings, 3-D volume renderings, 3D post processing, vascular maximum intensity projections obtained. Contrast administered is 100 cc Isovue-370 intravenous. Low dose protocols were performed. One or more of the following dose reduction techniques were used; automated exposure control, adjustment of the mA and/or KV according to patient size, use of iterative reconstruction technique. Findings: No thoracic aortic aneurysmal dilatation or dissection. No pulmonary artery filling defects Minimal bilateral hilar lymphadenopathy Interstitial parenchymal disease at the lung apices, axial image 61, scarring versus early pneumonia, clinical correlation advised No visualized liver or splenic lesion Liver is irregular in contour Absent gallbladder Common hepatic duct is enlarged, 20 mm No hydronephrosis IMPRESSION: Interstitial parenchymal disease at the lung apices, pneumonia versus scarring, clinical correlation advised Negative for pulmonary artery emboli Primary hepatocellular disease Enlarged common hepatic duct, 20 mm, recommend hepatobiliary sonography follow-up
--- NOTE | 2024-11-27 03:09 | XR_ITS ---
Examination: Venous duplex lower extremity sonogram, bilateral. Date and time of exam: November 27, 2024, 0318 hours INDICATIONS: Bilateral leg pain and swelling beginning several days ago Technique: Multiple sonographic images of the deep venous system have been obtained. B-mode/2-D grayscale imaging of vascular structures and Doppler spectral analysis (waveforms) and color performed Both legs are examined. Findings: Deep venous systems do not demonstrate abnormal echogenicity. No diagnostic visualization of the peroneal and posterior tibial veins secondary to edema All visualized deep veins exhibit compressibility. All visualized deep veins exhibit augmentation. Impression: No DVT demonstrated
--- NOTE | 2024-11-27 03:09 | XR_ITS ---
Examination: AP chest single view Technique one AP portable semiupright chest single view, comparison March 08, 2025 INDICATIONS: Shortness of breath today. Date and time: November 27, 2024 0352 hours FINDINGS: Abnormal opacity throughout both lungs most prominent in the left upper lobe Normal heart size Prominent osteopenia Old right-sided rib fractures. IMPRESSION: Bilateral pneumonia
[2024-11-27 03:41] LABS: Lactate (Lactic Acid) 1.0 mMol/L (0.4-2.0)
[2024-11-27 03:49] LABS: Basophils # (Auto) 0.0 Thou/mm3 (0.0-0.2); Basophils % (Auto) 0 % (0-2.5); Eosinophils # (Auto) 0.0 Thou/mm3 (0.0-0.5); Eosinophils % (Auto) 0 % (0-10); Hematocrit 38.1 % (36.0-46.0); Hemoglobin 11.9 g/dL (12.0-16.0); Immature Granulocytes Auto 0.01 Thou/mm3 (0.00-0.00); Lymphocytes # (Auto) 1.0 Thou/mm3 (1.0-4.8); Lymphocytes % (Auto) 18 % (10-50); Mean Corpuscular HGB Conc 31.2 g/dl (31.0-37.0); Mean Corpuscular Hemoglobin 27.2 pg (25.0-35.0); Mean Corpuscular Volume 87 fL (80-100); Monocytes # (Auto) 0.5 Thou/mm3 (0.0-0.8); Monocytes % (Auto) 9 % (0-12); Neutrophils # (Auto) 4.2 Thou/mm3 (1.8-7.7); Neutrophils % (Auto) 72 % (37-80); Nucleated Red Blood Cell # 0.00 Thou/mm3 (0.00-0.00); Nucleated Red Blood Cell % 0 /100 WBC (0); Platelet Count 130 Thou/mm3 (140-440); RDW Standard Deviation 50.4 fL (36.4-46.3); Red Blood Count 4.38 Miln/mm3 (4.00-5.20); White Blood Count 5.8 Thou/mm3 (3.6-11.0)
[2024-11-27 03:56] LABS: HCG,Qualitative Serum Negative
[2024-11-27 04:09] LABS: Sed Rate (ESR) 113 mm/hr (0-30)
[2024-11-27 04:12] LABS: INR 1.1 (0.9-1.3); Partial Thromboplastin Time 23.9 Seconds (22.0-36.0); Prothrombin Time 11.7 Seconds (9.0-12.2)
[2024-11-27 04:14] LABS: Alanine Aminotransferase 61 U/L (10-49); Albumin, Serum 4.5 gm/dL (3.5-5.0); Albumin/Globulin Ratio 1.2 (1.2-2.2); Alcohol, Blood Medical < 3.0 mg/dL (0-10.0); Alkaline Phosphatase 123 U/L (46-116); Anion Gap 8 (7-16); Aspartate Amino Transferase 89 U/L (0-34); BUN/Creatinine Ratio 17 Ratio (12-20); Bilirubin,Direct 0.2 mg/dL (0.0-0.3); Bilirubin,Total 0.6 mg/dL (0.3-1.2); Blood Urea Nitrogen 12 mg/dL (9-23); C-Reactive Protein 2.3 mg/dL (0.0-0.9); Calcium 9.3 mg/dL (8.3-10.6); Calcium (Corrected) 9.3 mg/dL (8.5-10.1); Carbon Dioxide 28.9 mMol/L (20.0-31.0); Chloride 100 mMol/L (98-107); Creatinine (Component) 0.7 mg/dL (0.6-1.3); Estimated Creatinine Clearance 110.6 mL/min (>60); Globulin 3.9 gm/dL (2.3-3.5); Glucose 85 mg/dL (74-106); Magnesium 2.0 mg/dL (1.6-2.6); Osmolality,Calculated 272 (275-295); Potassium 4.1 mMol/L (3.4-5.1); Procalcitonin 0.06 ng/ml (0.0-0.49); Sodium 137 mMol/L (136-145); Total Protein 8.4 gm/dL (5.7-8.2); Troponin I < 0.002 ng/mL (0.0-0.045); eGFR > 60 See Note
[2024-11-27 04:27] LABS: B-Type Natriuretic Peptide < 20 pg/mL (0-100)
[2024-11-27 04:31] LABS: D-Dimer 2400 ng/mL (<600)
--- NOTE | 2024-11-27 04:33 | PRELIM_ITS ---
Bilateral lower extremity venous Doppler ultrasound. November 27, 2024 at 0318 hours Clinical history: Edema, high dimer. No prior study is available for comparison. Findings: Snider scale, color flow and spectral Doppler evaluation of the lower extremity deep veins was performed. Right: The common femoral, superficial femoral and popliteal veins are patent and compressible. Normal respiratory variation is noted. The great saphenous vein is patent at the level of the saphenofemoral junction. The calf veins to the extent visualized are patent. Left: The common femoral, superficial femoral and popliteal veins are patent and compressible. Normal respiratory variation is noted. The great saphenous vein is patent at the level of the saphenofemoral junction. The posterior tibial and peroneal veins are not demonstrated due to marked edema. Impression: No evidence of deep venous thrombosis in both lower extremities to the extent visualized. Other findings as described above. Report Electronically Signed By: Abiel Mejia 11/27/2024 4:33:10 AM [EST]
[2024-11-27 05:00] VITALS: BP 158/78; PULSE 94; O2SAT 96
--- NOTE | 2024-11-27 05:45 | PC.NURSE ---
multiple attempts to start iv by myself and others not succesful.
--- NOTE | 2024-11-27 07:00 | PC.NURSE ---
REPORT RECEIVED AT THIS TIME BY BUBBA HERNANDEZ; PER REPORT, PT COMING FROM HOME VIA EMS. PT C/O L KNEE PAIN. HER LOWER EXTREMITIES LOOK LIKE THEY HAVE AN INFECTION. PT ALSO REPORTS RELAPSING YESTERDAY WITH METH. PT WAS SOBER FOR 3 MONTHS. PT A&OX4, GCS 15. PT CONNECTED TO MONITORS AT THIS TIME.
--- NOTE | 2024-11-27 07:02 | EDNOTE_ITS ---
<Statement entered by Criselda Fu MD - 11/28/24 06:56> As co-signing physician, I was present and available for consult prn. I concur with the plan and care as documented by the midlevel provider. Emergency Room Addendum Addendum Narrative: PE: Gen: A&O X3, NAD HEENT: NCAT, EOMI, Pupils reactive NICK, not icteric. External ears normal. No rhinorrhea. dry mucous membranes. Neck: Supple, full range of motion, no observable masses, No meningeal sign. Lungs: No Respiratory distress, clear bilateral. CV: RRR, systolic murmur appreciated. Abdomen: Soft, nondistended, No rebound tenderness. MSK: LLE warm, swollen and erythematous. RLE mildly swollen, but significantly lesser than LLE. Toe deformities in NICK LE. able to move all extremities. Skin: No rashes, petechiae, lesions. Neuro: No focal neurological deficits appreciated, sensory and motor intact. Psych: Cooperative, appropriate mood and effect. 5:50: Care assumed from previous shift production associate ED physician. 6:20: Patient was reassessed after labs and diagnostic imaging were reviewed. At this time chest CTA and CT of lower extremity is still pending. Patient was resting in bed. No acute distress. Stated last use Meth yesterday 6:57: Ceftriaxone and doxycycline IV ordered as well as 500 mL bolus of NS. 8:04: Morphine 4mg x1 ordered for pain. 9:40: Imaging was reviewed and lower extremity CT showed cellulitis pattern and chest CTA was negative for PE. At this time patient is stable enough to be discharged home with outpatient follow-up with primary care physician and antibiotics for cellulitis. Case disclosed with Attending Dr. Tank Walden PGY2 Disclaimer: Even though this this note was dictated by speech recognition and even though it was carefully revised there may still be minor errors in first sampler due to voice recognition software.
[2024-11-27] MEDS: cefTRIAXone/D5w 1gm IV premix 1 GM/50 ML BAG IV (07:08)
[2024-11-27] MEDS: SODIUM CHLORIDE 0.9% 500 ML 500 ML 999 ML IV (07:08)
[2024-11-27 07:17] VITALS: BP 120/70; PULSE 86; RESP 16; TEMP 36.8; O2SAT 99
[2024-11-27 07:27] LABS: Collection Type, Urine Clean Catch
[2024-11-27 07:49] LABS: Bilirubin,Urine Negative (Negative); Blood,Urine Negative (Negative); Clarity,Urine Clear (Clear/Hazy); Color,Urine Lt-Yellow (Lt Yel-Yel); Culture Indicated,Urine Not Indicated; Glucose, Urine Negative (Negative); Ketones,Urine Negative (Negative); Leukocyte Esterase,Urine Negative (Negative); Nitrite,Urine Negative (Negative); PH,Urine 6.5 (5.0-7.0); Protein,Urine Negative (Neg - Trace); RBC,Urine < 1 /hpf (0-3); Specific Gravity,Urine 1.015 (1.001-1.035); Squamous Epithelial Cell,Urine 2 /hpf (0-5); Urobilinogen,Urine Negative mg/dL (0.0-1.0); WBC,Urine 1 /hpf (0-5)
[2024-11-27 08:06] LABS: HCG Qualitative,Urine Negative
[2024-11-27 08:07] LABS: Amphetamine/Methamp Scrn,U Positive (Negative); Barbiturate Screen,Urine Negative (Negative); Benzodiazepines Screen,Urine Negative (Negative); Benzoylecgonine Screen, Ur Negative (Negative); Fentanyl Screen,Urine Negative (Negative); Opiate Screen,Urine Negative (Negative); THC Screen,Urine Negative (Negative)
[2024-11-27] MEDS: MORPHINE SULF INJ 10 MG/ML VIAL 4 MG IVP (08:13)
[2024-11-27] MEDS: DOXYCYCLINE INJ 100 MG in SODIUM CHLORIDE 0.9% (POP) 100 ML IV (08:51)
[2024-11-27 10:17] VITALS: BP 118/84; PULSE 89; RESP 15; TEMP 36.9; O2SAT 100
--- NOTE | 2024-11-27 10:30 | PC.NURSE ---
SPOKE TO INA HOIST OPERATOR AND MADE AWARE PT ASKING FOR RIDE BACK TO [address] [place] [address] [facility], [place] PER INA, WILL COME DOWN AND SEE PT SOON TO SET UP RIDE.
== END 2024-11-27 11:23 | disposition home or self-care (01) ==
PROVIDERS: Emergency Medicine; Emergency Provider Emergency Medicine; Referring Provider Family Medicine
DX: L03.116 Cellulitis of left lower limb (principal); L03.115 Cellulitis of right lower limb; M79.605 Pain in left leg; M79.604 Pain in right leg; R07.9 Chest pain, unspecified; R79.89 Other specified abnormal findings of blood chemistry
CPT/HCPCS: 36415; 71045; 71275; 73701; 80053; 80307; 80320; 81001; 81025; 82248; 83605; 83735; 83880; 84145; 84484; 84703; 85025; 85379; 85610; 85652; 85730; 86140; 87040; 93005; 93970; 96365; 96366; 96375; 99284; A4649; J0696; J2270; J3490; J7999; Q9967; G0480

== ENCOUNTER 2024-12-05 18:50 | Emergency (ER) | payer MEDICAID, SELFPAY ==
[2024-12-05 18:52] VITALS: BP 123/67; PULSE 80; RESP 16; TEMP 36.7; O2SAT 95
[2024-12-05 18:54] VITALS: PULSE 80; RESP 20; O2SAT 97
--- NOTE | 2024-12-05 19:07 | PD.EDADULT ---
ED General RME/HPI General Chief complaint: Shortness of Breath/Dyspnea Stated complaint: ANXIETY Time Seen by Provider: 12/05/24 19:07 Arrival date/time: 12/05/24 18:50 RME / HPI RME / HPI narrative: 49-year-old female with past medical history of substance abuse currently on methadone, depression, anxiety, and gene valgum left knee concern to the ED brought in by ambulance due to shortness of breath for the past 3 days. Patient states that she felt little bit anxious, but denies having any chest pain, nausea, vomiting, cough, fevers, burning sensation urination, change in bowel movement. Patient states that she has also felt some chills, but states that she has not had any sick contacts. Otherwise patient has no new complaints at this time. Previous drug use currently on methadone and had a relapse around 1 week ago on meth, smoker, social drinker. Related Data Home Medications ?Medication ?Instructions ?Recorded ?Confirmed escitalopram oxalate 10 mg tablet 10 mg PO QDAY 01/28/24 01/28/24 gabapentin 600 mg tablet 600 mg PO TID 01/28/24 01/28/24 methadone 5 mg tablet 140 mg PO 0600 01/28/24 01/28/24 olanzapine 5 mg tablet 5 mg PO HS 01/28/24 01/28/24 Previous Rx's ?Medication ?Instructions ?Recorded albuterol sulfate 90 mcg/actuation 1 inh inhalation QID PRN shortness 02/02/24 aerosol inhaler of breath or wheezing #8.5 grams albuterol sulfate 90 mcg/actuation 2 inh inhalation QID PRN shortness 04/08/24 aerosol inhaler of breath or wheezing #8.5 grams cephalexin 500 mg capsule 500 mg PO QID 14 days #56 caps 11/27/24 Allergies Allergy/AdvReac Type Severity Reaction Status Date / Time No Known Allergies Allergy Verified 11/27/24 00:30 Review of Systems Review of Systems Systems Reviewed: All systems reviewed, normal except as documented Past Medical History Past Medical History NEUROLOGIC: Negative Cerebrovascular Accident, Transient Ischemic Attacks (TIA), Dementia, Alzheimer's Disease, Parkinson's Disease, Brain Tumor, Meningitis, Seizures, Epilepsy, Multiple Sclerosis, Cerebral Palsy, Guillain-Boutte Syndrome, Spina Bifida, Paralysis, Peripheral Neuropathy, Davis's Palsy, Subdural Hematoma, Migraine, Head Trauma, Spinal Cord Injury or Traumatic Brain Injury CARDIAC: Negative Cardiac Disorders or Congestive Heart Failure RESPIRATORY: Negative Chronic Obstructive Pulmonary Disease (COPD), Asthma, Bronchitis, Emphysema, Pneumonia, Cystic Fibrosis, Pulmonary Edema or Sleep Apnea GASTROINTESTINAL: Positive Gall Bladder Disease and Obesity; Negative Hepatitis, Pancreatitis, Gastrointestinal Bleed, Ulcerative Colitis, Ulcer, Colorectal Cancer, Irritable Bowel, Obstructive Bowel, Hiatal Hernia, Hemorrhoids or Gastroesophageal Reflux Disease GENITOURINARY: Negative Genitourinary Disorders, Renal Disease, Kidney Stones, Polycystic Kidney Disease, Neurogenic Bladder, Inguinal Hernia, Dialysis, Prostate Cancer or Benign Prostatic Hyperplasia REPRODUCTIVE: Negative Breast Cancer, Endometriosis, Genital Herpes, Gonorrhea, Pelvic Inflammatory Disease, Previous Pregnancies, Syphilis, Testicular Cancer or Uterine Prolapse MUSCULOSKELETAL: Positive Musculoskeletal Disorders; Negative Muscular Dystrophy, Bone Cancer or Scoliosis ENT: Negative Cataracts, Glaucoma, Blind, Retinal Detachment, Macular Degeneration, Ear Infection, Deafness, Head Trauma or Eye Prosthesis ENDOCRINE: Negative Diabetes Mellitus Type 1 or Diabetes Mellitus Type 2 HEMATOLOGIC: Negative Blood Disorders, Anemia, Leukemia, Hemophilia, Thalassemia or Sickle Cell Disease PSYCHO/SOCIAL: Negative Psychiatric Problems, Schizophrenia, Recreational Drug Use, Bipolar Disorder, Depression, Anxiety, Behavior Problems, Self-Mutilation, Attention Deficit Disorder, Attention Deficit Hyperactivity Disorder, Depression, Post Traumatic Stress Disorder or Eating Disorder OTHER HISTORY: Positive Blood Transfusions; Negative Hospitalization, Autoimmune Disease, Down Syndrome, Autism, Developmental Delay, Shingles, Falls, Organ Transplant, Chemotherapy, Radiation Therapy, Hyperbaric Therapy, Human Immunodeficiency Virus (HIV), Measles, Mumps, Rubella (Slovak Measles), Pertussis, Cancer, Breast Cancer, Cervical Cancer, Colorectal Cancer, Lung Cancer, Ovarian Cancer, Prostate Cancer or Testicular Cancer Surgical History SURGICAL: Positive Abdominal Surgery, Joint Replacement and Section; Negative Cardiac Surgery, Open Heart Surgery, Coronary Artery Bypass Graft, Valve Replacement, Vascular Surgery, Coronary Stent, Cardiac Catheterization, Pacemaker, Angiogram, Auto Implanted Cardiovert Defib, Carotid Endarterectomy, Endocrine Surgery, Thyroidectomy, Ear Surgery, Tympanostomy Tube, Eye Surgery, Nose Surgery, Oral Surgery, Tonsillectomy, Adenoidectomy, Cochlear Implant, Corneal Transplant, Throat Surgery, Tracheostomy, Gastric Bypass Surgery, Gastrostomy, Bowel Surgery, Nephrectomy, Transurethral Resection, Amputation, Open Reduction Internal Fixation, Arthroscopy, Neurologic Surgery, Brain Shunt, Mastectomy, Lumpectomy, Hysterectomy, Tubal Ligation or Organ Transplant Social History SMOKING STATUS: Current some day smoker SUBSTANCE USE: former substance user and heroin ED Exam Narrative Physical exam: Gen: A&O X 3, NAD HEENT: NCAT, EOMI, Pupils reactive NICK, not icteric. External ears normal. No rhinorrhea. Moist mucous membranes. Neck: Supple, full range of motion, no observable masses, No meningeal sign. Lungs: No Respiratory distress, clear bilateral. CV: RRR, no murmurs. Abdomen: Soft, nondistended, nontender, No rebound tenderness. MSK: Left knee swelling., no redness, peripheral pulses presents, lumbar with no edema. Bilateral lower extremity edema 1+, but has improved from previous visit. Skin: No rashes, petechiae, lesions. Neuro: No focal neurological deficits appreciated, sensory and motor intact. Psych: Cooperative, appropriate mood and effect. Course Quality Measures none Orders Category Date Time Status Bedside COVID-19 Antigen Test NOW Care 12/05/24 19:11 Active Bedside Influenza A&B Antigen Test NOW Care 12/05/24 19:11 Completed EKG (ED ONLY) *Do not use* NOW Care 12/05/24 19:08 Completed CXRP [XR chest 1V portable] Stat Exams 12/05/24 19:08 Taken EKG (ED Only) Stat Exams 12/05/24 19:08 Draft CBC [CBC] Stat Lab 12/05/24 19:47 Completed CMP [Comprehensive Metabolic Panel] Stat Lab 12/05/24 19:47 Completed Drug Screen,Urine Stat Lab 12/05/24 19:08 Ordered Lactic Acid [Lactate (Lactic Acid)] Stat Lab 12/05/24 19:47 Completed Magnesium Stat Lab 12/05/24 19:47 Completed Procalcitonin Stat Lab 12/05/24 19:47 Completed Troponin I Stat Lab 12/05/24 19:47 Completed UA [Urinalysis] Stat Lab 12/05/24 19:08 Ordered Vital Signs Vital signs: Vital Signs Temperature 98.0 F 12/05/24 18:52 Pulse Rate 80 12/05/24 18:52 Respiratory Rate 16 12/05/24 18:52 Blood Pressure 123/67 12/05/24 18:52 Pulse Oximetry (%) 95 12/05/24 18:52 Oxygen Delivery Method Room Air 12/05/24 18:52 Discharge Plan Plan Patient Disposition: HOME (Self Care) Prescriptions/Referrals Prescriptions/Med Rec: No Action albuterol sulfate 90 mcg/actuation HFA aerosol inhaler 2 inh inhalation QID PRN (Reason: shortness of breath or wheezing) Qty: 8.5 0RF cephalexin 500 mg capsule 500 mg PO QID 14 Days Qty: 56 0RF gabapentin 600 mg tablet 600 mg PO TID Patient Comments: TAKE 1 TABLET BY MOUTH THREE TIMES A DAY olanzapine 5 mg tablet 5 mg PO HS Patient Comments: TAKE 1 TABLET BY MOUTH EVERYDAY AT BEDTIME methadone 5 mg Tablet 140 mg PO 0600 escitalopram oxalate 10 mg tablet 10 mg PO QDAY albuterol sulfate 90 mcg/actuation HFA aerosol inhaler 1 inh inhalation QID PRN (Reason: shortness of breath or wheezing) Qty: 8.5 0RF Referrals: No Primary/Family,Physician [Primary Care Provider] - In 1 week Problem List Clinical Impression: SOB (shortness of breath) Patient/Caregiver Discharge Instructions Other Activity Instructions:: Please follow-up primary care physician within 2 to 3 days Would recommend breathing exercises for anxiety. Recommend to come back to the ER if symptoms persist or worsen. Education Materials: ED Shortness of Breath (Dyspnea) Print Language: Slovenian Stand Alone Forms: Елена Award Info., Patient Portal Info Letter MDM Narrative MDM hospital course: Patient was seen and evaluated upon arrival by myself. Diagnostic labs and imaging was ordered. Patient's labs did not show any signs of infection with a negative Pro-Nic and inflammatory markers were negative. Patient's chest x-ray also did not show any new consolidations. Patient's vitals have been stable and her shortness of breath is likely due to anxiety. At this time patient stable enough to be discharged back home with close follow-up with primary care physician. Patient agrees with plan. Case disclosed with Attending Dr. Jimy Walden PGY2 Disclaimer: Even though this this note was dictated by speech recognition and even though it was carefully revised there may still be minor errors in urogynaecologist due to voice recognition software.
--- NOTE | 2024-12-05 19:08 | EKG_ITS ---
[facility] Test Date: 2024-12-05 Pat Name: BEAR AG Department: Room: - Gender: Female Marketing Community Liaison: : 1975 Requested By: Konrad Walden Order Number: [id number] Reading MD: Konrad Walden Measurements Intervals [place] Rate: 70 P: 22 KS: 160 QRS: 46 QRSD: 91 T: 48 QT: 399 QTc: 433 Interpretive Statements SINUS RHYTHM Compared to ECG 06/08/2024 10:17:13 No significant changes /store/S0/[id number].pdf
--- NOTE | 2024-12-05 19:08 | XR_ITS ---
Examination: AP chest single view FINDINGS: AP upright portable chest single view Date and time: December 05, 2024, 1940 hours Comparison November 27, 2024 INDICATIONS: Chest pain and shortness of breath today. FINDINGS: Mild prominence left ventricle Prominent vascular congestion Bilateral lung opacity, pneumonia versus pulmonary edema Prominent osteopenia with bilateral old rib fractures IMPRESSION: Perihilar edema and/or pneumonia, clinical correlation is advised
[2024-12-05 19:56] LABS: Lactate (Lactic Acid) 0.7 mMol/L (0.4-2.0)
[2024-12-05 19:59] LABS: Basophils # (Auto) 0.0 Thou/mm3 (0.0-0.2); Basophils % (Auto) 0 % (0-2.5); Eosinophils # (Auto) 0.0 Thou/mm3 (0.0-0.5); Eosinophils % (Auto) 0 % (0-10); Hematocrit 35.4 % (36.0-46.0); Hemoglobin 10.9 g/dL (12.0-16.0); Immature Granulocytes Auto 0.00 Thou/mm3 (0.00-0.00); Lymphocytes # (Auto) 1.0 Thou/mm3 (1.0-4.8); Lymphocytes % (Auto) 28 % (10-50); Mean Corpuscular HGB Conc 30.8 g/dl (31.0-37.0); Mean Corpuscular Hemoglobin 27.5 pg (25.0-35.0); Mean Corpuscular Volume 89 fL (80-100); Monocytes # (Auto) 0.4 Thou/mm3 (0.0-0.8); Monocytes % (Auto) 10 % (0-12); Neutrophils # (Auto) 2.2 Thou/mm3 (1.8-7.7); Neutrophils % (Auto) 61 % (37-80); Nucleated Red Blood Cell # 0.00 Thou/mm3 (0.00-0.00); Nucleated Red Blood Cell % 0 /100 WBC (0); Platelet Count 166 Thou/mm3 (140-440); RDW Standard Deviation 50.6 fL (36.4-46.3); Red Blood Count 3.97 Miln/mm3 (4.00-5.20); White Blood Count 3.5 Thou/mm3 (3.6-11.0)
[2024-12-05 20:30] LABS: Alanine Aminotransferase 72 U/L (10-49); Albumin, Serum 4.0 gm/dL (3.5-5.0); Albumin/Globulin Ratio 1.1 (1.2-2.2); Alkaline Phosphatase 111 U/L (46-116); Anion Gap 5 (7-16); Aspartate Amino Transferase 83 U/L (0-34); BUN/Creatinine Ratio 18 Ratio (12-20); Bilirubin,Total 0.2 mg/dL (0.3-1.2); Blood Urea Nitrogen 11 mg/dL (9-23); Calcium 9.3 mg/dL (8.3-10.6); Calcium (Corrected) 9.3 mg/dL (8.5-10.1); Carbon Dioxide 32.2 mMol/L (20.0-31.0); Chloride 102 mMol/L (98-107); Creatinine (Component) 0.6 mg/dL (0.6-1.3); Globulin 3.6 gm/dL (2.3-3.5); Glucose 102 mg/dL (74-106); Magnesium 1.6 mg/dL (1.6-2.6); Osmolality,Calculated 276 (275-295); Potassium 4.4 mMol/L (3.4-5.1); Procalcitonin < 0.04 ng/ml (0.0-0.49); Sodium 139 mMol/L (136-145); Total Protein 7.6 gm/dL (5.7-8.2); Troponin I < 0.002 ng/mL (0.0-0.045); eGFR > 60 See Note
[2024-12-05 21:25] VITALS: BP 132/76; PULSE 66; RESP 17; TEMP 36.7; O2SAT 98
== END 2024-12-05 21:26 | disposition home or self-care (01) ==
DX: R06.02 Shortness of breath (principal); F32.A Depression, unspecified
CPT/HCPCS: 36415; 71045; 80053; 80307; 81001; 83605; 83735; 84145; 84484; 85025; 87400; 87811; 93005; 99283

== ENCOUNTER 2024-12-23 09:28 | Emergency (ER) | payer MEDICAID, SELFPAY ==
[2024-12-23 09:30] VITALS: BP 115/77; PULSE 92; RESP 18; TEMP 36.9; O2SAT 97
[2024-12-23 09:34] VITALS: PULSE 91; RESP 20; O2SAT 94; BMI 34.9
[2024-12-23 09:42] VITALS: BP 131/76; PULSE 88; RESP 18; TEMP 37.1; O2SAT 95
--- NOTE | 2024-12-23 10:13 | PD.EDEXREM ---
ED Extremity Problem RME/HPI General Chief complaint: Extremity Problem,Nontraumatic Stated complaint: LEFT KNEE PAIN Time Seen by Provider: 12/23/24 09:36 Arrival date/time: 12/23/24 09:28 Limitations: no limitations RME / HPI RME / HPI Narrative: 49 year old female with history of heroin use currently on methadone, depression, anxiety presents to the ED BIBA for evaluation of left knee pain today. Reports her knee pain is chronic and unchanged today. However, was unable to control pain at home. Denies any new injury or trauma. Patient mentioned she has been evaluated by orthopedic surgeon and told she would require surgery on her knee. However, states she would need to lose weight for the surgery. Denies any new injury or trauma. Denies fevers, chills, sweats, or open wounds. Related Data Home Medications ?Medication ?Instructions ?Recorded ?Confirmed escitalopram oxalate 10 mg tablet 10 mg PO QDAY 01/28/24 01/28/24 gabapentin 600 mg tablet 600 mg PO TID 01/28/24 01/28/24 methadone 5 mg tablet 140 mg PO 0600 01/28/24 01/28/24 olanzapine 5 mg tablet 5 mg PO HS 01/28/24 01/28/24 Previous Rx's ?Medication ?Instructions ?Recorded albuterol sulfate 90 mcg/actuation 1 inh inhalation QID PRN shortness 02/02/24 aerosol inhaler of breath or wheezing #8.5 grams albuterol sulfate 90 mcg/actuation 2 inh inhalation QID PRN shortness 04/08/24 aerosol inhaler of breath or wheezing #8.5 grams hydrocodone 10 mg-acetaminophen 1 tab PO Q6H PRN pain #20 tabs 12/23/24 325 mg tablet Allergies Allergy/AdvReac Type Severity Reaction Status Date / Time No Known Allergies Allergy Verified 11/27/24 00:30 Review of Systems Review of Systems Systems Reviewed: All systems reviewed, normal except as documented Past Medical History Past Medical History GASTROINTESTINAL: Positive Gall Bladder Disease and Obesity MUSCULOSKELETAL: Positive Musculoskeletal Disorders OTHER HISTORY: Positive Blood Transfusions Surgical History SURGICAL: Positive Abdominal Surgery, Joint Replacement and Section Social History SMOKING STATUS: Current some day smoker SUBSTANCE USE: former substance user and heroin ED Exam General Limitations: Present no limitations General appearance: Present alert and in no apparent distress Head Head exam: Present atraumatic, normocephalic and normal inspection Eye Eye exam: Present normal appearance, PERRL and EOMI ENT ENT exam: Present normal exam, normal oropharynx and mucous membranes moist Neck Neck exam: Present normal inspection, full ROM and trachea midline Chest Chest inspection: Present normal inspection and symmetric chest wall rise Respiratory Respiratory exam: Present normal lung sounds bilaterally Cardiovascular Cardiovascular exam: Present regular rate, normal rhythm and normal heart sounds Abdominal Exam Abdominal exam: Present soft and normal bowel sounds Extremities Exam Extremities exam: Present other (effusion to the left knee, no erythema, no increased warmth ) Back Exam Back exam: Present normal inspection and full ROM Neurological Exam Neurological exam: Present alert, oriented X3 and CN II-XII intact Psychiatric Psychiatric exam: Present normal affect and normal mood Skin Skin exam: Present warm, dry, intact and normal color Course Quality Measures none Orders Category Date Time Status Ketorolac Inj [Toradol Inj] Med 12/23/24 10:48 Discontinued 30 mg IM X1 ONE Morphine Inj Med 12/23/24 10:48 Discontinued 4 mg IM X1 ONE Ondansetron Inj [Zofran Inj] Med 12/23/24 10:48 Discontinued 4 mg IM X1 ONE Vital Signs Vital signs: Vital Signs Temperature 98.5 F 12/23/24 09:30 Pulse Rate 92 12/23/24 09:30 Respiratory Rate 18 12/23/24 09:30 Blood Pressure 115/77 12/23/24 09:30 Pulse Oximetry (%) 97 12/23/24 09:30 Oxygen Delivery Method Room Air 12/23/24 09:30 Pulse ox is 97% on room air which is adequate. Extremity Problem MDM Narrative MDM Narrative:: Argenis Cast am scribing for and in the presence of Dr. Salinas. 49 year old female with history of chronic left knee pain presented to the ED today for pain control. No other associated symptoms or complaints reported. Denies any new falls or injuries. Patient states is on Methadone for previous heroin IV use. In the ED, patient will be given Morphine, Toradol, and Zofran. Will send the patient home with a prescription for [place] 10-325mg QTY 20. Patient data External records reviewed:: [facility] previous records (I reviewed ED visit on 12/05/2024 ) and EMS form Clinical information provided by:: patient and EMS Social determinants that could affect healthcare access:: none Patient has the following chronic illnesses:: heroin use currently on methadone, depression, anxiety, chronic left knee pain How is presenting disease/condition affected by chronic disease/condition?: exacerbated by Evaluation data The following diagnostics were reviewed and interpreted by me:: other (specify) (No diagnostics ordered ) Lab and/or radiology exams considered but not ordered:: None Interpretation Summary: N/A Medications / Prescriptions Medications or Prescriptions considered but not ordered:: None Medication administrations:: Medication Administration History Discontinued Medications Ketorolac Tromethamine (Ketorolac Inj 30 Mg/Ml Vial) 30 mg IM X1 ONE Stop: 12/23/24 10:49 Morphine Sulfate (Morphine Sulf Inj 10 Mg/Ml Vial) 4 mg IM X1 ONE Stop: 12/23/24 10:49 Ondansetron HCl (Ondansetron Inj 2 Mg/Ml Inj 2 Ml) 4 mg IM X1 ONE; Protocol Stop: 12/23/24 10:49 See above Consultations Consultation(s) initiated? (list below): No Diagnosis Most likely diagnosis given after review of the tests above:: Left knee pain Left knee effusion Osteoarthritis left knee Admission Indicated Admission indicated?: not indicated Admission Request Was there a request for admission?: No Disposition Plan Disposition Plan: Discharge Discharge Attestation Discharge Attestation: The patient and all family members were given an opportunity to ask questions and understood the discharge instructions. Discharge instructions specifically effects, indications for sooner follow up or return to the emergency department, and the expected course of current diagnosis. Patient condition: Stable Discharge Plan Plan Patient Disposition: HOME (Self Care) Prescriptions/Referrals Prescriptions/Med Rec: New hydrocodone-acetaminophen 10-325 mg tablet 1 tab PO Q6H MDD 4 PRN (Reason: pain) Qty: 20 0RF No Action albuterol sulfate 90 mcg/actuation HFA aerosol inhaler 2 inh inhalation QID PRN (Reason: shortness of breath or wheezing) Qty: 8.5 0RF gabapentin 600 mg tablet 600 mg PO TID Patient Comments: TAKE 1 TABLET BY MOUTH THREE TIMES A DAY olanzapine 5 mg tablet 5 mg PO HS Patient Comments: TAKE 1 TABLET BY MOUTH EVERYDAY AT BEDTIME methadone 5 mg Tablet 140 mg PO 0600 escitalopram oxalate 10 mg tablet 10 mg PO QDAY albuterol sulfate 90 mcg/actuation HFA aerosol inhaler 1 inh inhalation QID PRN (Reason: shortness of breath or wheezing) Qty: 8.5 0RF Referrals: No Primary/Family,Physician [Primary Care Provider] - In 1 week Problem List Clinical Impression: Chronic pain of left knee, Effusion of left knee joint, Degenerative joint disease of knee, left Patient/Caregiver Discharge Instructions Education Materials: Osteoarthritis: Coping with Pain, ED Chronic Pain, ED Knee Effusion Additional Instructions: Follow-up with your primary care doctor in 3 to 5 days for recheck. You can return to the emergency department sooner if symptoms worsen or if you notice any new, concerning issues. Print Language: East Timorese Stand Alone Forms: Елена Award Info., Patient Portal Info Letter
[2024-12-23] MEDS: ONDANSETRON INJ 2 MG/ML INJ 2 ML 4 MG IM (11:39)
[2024-12-23] MEDS: KETOROLAC INJ 30 MG/ML VIAL IM (11:40)
[2024-12-23] MEDS: MORPHINE SULF INJ 10 MG/ML VIAL 4 MG IM (11:41)
[2024-12-23 12:42] VITALS: BP 128/78; PULSE 81; RESP 17; TEMP 37.1; O2SAT 96
[2024-12-23 13:34] VITALS: BP 146/87; PULSE 68; RESP 16; TEMP 36.7; O2SAT 94
== END 2024-12-23 13:35 | disposition home or self-care (01) ==
PROVIDERS: Emergency Provider Family Medicine
DX: M17.12 Unilateral primary osteoarthritis, left knee (principal)
CPT/HCPCS: 96372; 99283; J1885; J2270; J2405

== ENCOUNTER 2025-02-07 07:47 | Emergency (ER) | payer MEDICAID, SELFPAY ==
[2025-02-07 07:56] VITALS: PULSE 100; RESP 18; O2SAT 99; BMI 34.9
[2025-02-07 08:10] VITALS: BP 126/65; PULSE 85; PULSE 86; RESP 18; RESP 90; TEMP 36.9; O2SAT 90; O2SAT 96
[2025-02-07] MEDS: SODIUM CHLORIDE 0.9% 1000 ML 1,000 ML 999 ML IV ×2 (08:29→08:30)
--- NOTE | 2025-02-07 08:41 | PD.EDLOWEX ---
Lower Extremity Injury RME/HPI General Chief Complaint: Extremity Injury, Lower Stated Complaint: leg pain Time Seen by Provider: 02/07/25 08:06 Source: patient Arrival date/time: 02/07/25 07:47 Mode of arrival: ambulatory RME / HPI RME / HPI Narrative: 49-year-old female coming from a homeless [facility] with bilateral leg pain. The patient has acute on chronic bilateral leg pain. She states she always has swelling about both knees. She is on methadone for her pain. Patient states she woke up at 5 AM this morning and started having pain in her left lower extremity. Patient states the swelling is not any worse. No recent falls. The patient is able to ambulate. The patient has chronic erythema of her lower extremity. Related Data Home Medications ?Medication ?Instructions ?Recorded ?Confirmed escitalopram oxalate 10 mg tablet 10 mg PO QDAY 01/28/24 01/28/24 gabapentin 600 mg tablet 600 mg PO TID 01/28/24 01/28/24 methadone 5 mg tablet 140 mg PO 0600 01/28/24 01/28/24 olanzapine 5 mg tablet 5 mg PO HS 01/28/24 01/28/24 Previous Rx's ?Medication ?Instructions ?Recorded albuterol sulfate 90 mcg/actuation 1 inh inhalation QID PRN shortness 02/02/24 aerosol inhaler of breath or wheezing #8.5 grams albuterol sulfate 90 mcg/actuation 2 inh inhalation QID PRN shortness 04/08/24 aerosol inhaler of breath or wheezing #8.5 grams hydrocodone 10 mg-acetaminophen 1 tab PO Q6H PRN pain #20 tabs 12/23/24 325 mg tablet Allergies Allergy/AdvReac Type Severity Reaction Status Date / Time No Known Allergies Allergy Verified 11/27/24 00:30 Review of Systems Review of Systems Systems Reviewed: All systems reviewed, normal except as documented Narrative Review of Systems: POSITIVES: right hip pain, right lower back pain NEGATIVES: nausea, vomiting, diarrhea, abdominal pain, UTI symptoms, vaginal discharge or abnormal bleed, fall/injury/loc Past Medical History Past Medical History MUSCULOSKELETAL: Positive Musculoskeletal Disorders OTHER HISTORY: Positive Blood Transfusions Surgical History SURGICAL: Positive Abdominal Surgery, Joint Replacement and Section OTHER SURGICAL HX: unremarkable Social History SMOKING STATUS: Current every day smoker SUBSTANCE USE: former substance user and heroin Travel History EBOLA RISK: No Past Medical History Comments PMH COMMENT: Patient reports being on methadone for heroin withdrawal and is also on Gabapentin. ED Exam Narrative Physical exam: GEN. APPEARANCE: Patient is alert awake oriented x3 under mild to moderate pain distress especially when she moves around, sitting up; does not look ill/ toxic. Patient has good eye contact and is cooperative. VITALS: All vitals were reviewed and the pulse ox is 97% on room air, which is normal according to my interpretation. HEENT: Normocephalic, atraumatic and nontender. Pupils are equal and reactive to light and accommodation. Oral mucosa are moist. NECK: Supple, nontender, no meningismus, no JVD. CHEST: Nontender on palpation, no deformity and no crepitus. CARDIOVASCULAR: Heart regular rhythm no murmur or gallop rub or extra beats; not tachycardic. LUNGS: Clear to auscultation bilaterally with symmetrical chest rise. No laboring tachypnea or wheezing. No intercostal subcostal retraction. No rales and no rhonchi. ABDOMEN: Soft, flat, nontender at all, no guarding or rebound tenderness. There are no abnormal masses palpated. GENITALIA: Not examined. RECTAL EXAM: Not done. EXTREMITIES: Chronic vascular changes in bilateral lower extremities. Minimal swelling to the left lower extremity. Full range of motion of bilateral knees. Minimal thighs swelling on the left. SKIN: Warm and dry, no rashes noted. MUSCULOSKELETAL: No midline tenderness palpation along the back. NEURO: Cranial nerves II through XII grossly intact. There is no focalization. GCS is 15. PSYCHIATRIC: Patient is in normal mood and affect, cooperative. Course Quality Measures none Orders Category Date Time Status US venous doppler LE LT Stat Exams 02/07/25 10:17 Completed CBC Stat Lab 02/07/25 08:25 Completed CMP [Comprehensive Metabolic Panel] Stat Lab 02/07/25 08:25 Completed Ketorolac Inj [Toradol Inj] Med 02/07/25 10:48 Discontinued 30 mg IVP X1 ONE Sodium Chloride 0.9% 1000 ml [Ns] 1,000 ml Med 02/07/25 08:07 Discontinued IV 999 mls/hr Sodium Chloride 0.9% 1000 ml [Ns] 1,000 ml Med 02/07/25 08:09 Discontinued IV 999 mls/hr Vital Signs Vital signs: Vital Signs Temperature 98.4 F 02/07/25 08:10 Pulse Rate 85 10/15/25 08:10 Respiratory Rate 18 02/07/25 08:10 Blood Pressure 126/65 02/07/25 08:10 Pulse Oximetry (%) 90 L 02/07/25 08:10 Oxygen Delivery Method Room Air 02/07/25 08:10 Oxygen Flow Rate 2 02/07/25 08:10 Extremity Injury, Lower MDM Narrative MDM Narrative:: Pt presents with acute on chronic left t lower extremity pain and swelling. Pain increased tonight at 5 AM. Labwork (CBC, CMP) to evaluate for evidence of electrolyte abnl including hypokalemia, hyperkalemia, hypernatremia, hyponatremia, hyperglycemia, hypoglycemia, Doppler ultrasound to evaluate for DVT IVF hydration Re-eval.-10:25 AM Doppler study still pending. Labs are reviewed and interpreted by me. White count is 7.3 and normal. Hemoglobin is 10. Platelets are 237 and normal. Electrolytes are reviewed interpreted by me. Sodium and potassium normal at 138 and 3.8. BUN/creatinine are normal. Patient has mildly elevated LFTs but total bili is normal. Patient had Doppler. Will give Tylenol for pain control. (Independent Historian: EMS reports the [facility] is coming [facility] EXTERNAL RECORD REVIEW: I reviewed and interpreted prior non-ED medical record specialty: 2021 which showed: Was seen for right hip pain Social Determinants of Health Affecting Care: Homelessness living in a fci Social determinants of health that will affect patient's care are: Homelessness living in a fci Poor Health Literacy (Additional Time Provided in Explanation)- NA Drug Abuse (Provided Counseling and Discussed Risks of Substance Abuse) history of drug abuse on methadone Alcohol Abuse (Provided Counseling and Discussed Risks of Alcohol Abuse) denies Psychiatric Illness poorly controlled (Additional Time Provided in Explanations)- NA Poor access to outpatient care/follow up (Provided Outpatient Resources)- NA Lack of transportation (Arranged Transport as Needed)-homelessness will likely need a ride back to the fci today Homelessness (Provided Resources)-will provide fci material 1045a: Labs and ultrasound reviewed. No elevated WBC. The ultrasound of the left lower extremity is negative for DVT. Patient most likely has cellulitis of her left lower extremity. Will treat the leg pain and send her home. Patient data External records reviewed:: [facility] previous records and EMS form Clinical information provided by:: patient and EMS Social determinants that could affect healthcare access:: housing Patient has the following chronic illnesses:: substance abuse, depression How is presenting disease/condition affected by chronic disease/condition?: uneffected by Evaluation data The following diagnostics were reviewed and interpreted by me:: lab results Lab and/or radiology exams considered but not ordered:: None Interpretation Summary: Ordering Physician: Fina Grayson MD Date of Service: 02/07/25 Procedure(s): US venous doppler ANUEL KASPER Accession Number(s): [id number] cc: Niall Wan MD; Karena Tsai MD; Fina Grayson MD~ Examination: Duplex scan of the lower extremity, unilateral left Date and time of exam: 02/07/2025, 10:15 a.m. Technique: Duplex scan of the extremity veins using B-mode/grayscale imaging and Doppler spectral analysis and color flow Attention is directed to internal echogenicity, compression and augmentation involving these veins, color flow assessment, spectral analysis Findings: Major deep venous structures in the extremity demonstrate normal course and caliber. There is no evidence of deep vein thrombosis. Normal color flow and spectral analysis Impression: Negative for DVT.. Dictated By: Niall Wan MD Signed By: <Electronically signed by Niall Wan MD in [place]> 02/07/25 1045 Medications / Prescriptions Medications or Prescriptions considered but not ordered:: None Medication administrations:: Medication Administration History Discontinued Medications Sodium Chloride (Ns) 1,000 mls @ 999 mls/hr IV .Q1H1M ONE Stop: 02/07/25 09:07 Last Infusion: 02/07/25 09:41 Dose: Infused Documented By: Admin: 02/07/25 08:29 Dose: 999 mls/hr Documented By: JON Sodium Chloride (Ns) 1,000 mls @ 999 mls/hr IV .Q1H1M ONE Stop: 02/07/25 09:09 Last Infusion: 02/07/25 09:41 Dose: Infused Documented By: Admin: 02/07/25 08:30 Dose: 999 mls/hr Documented By: JON Ketorolac Tromethamine (Ketorolac Inj 30 Mg/Ml Vial) 30 mg IVP X1 ONE Stop: 02/07/25 10:49 See above Consultations Consultation(s) initiated? (list below): No Diagnosis Most likely diagnosis given after review of the tests above:: Swelling of lower extremity Admission Indicated Admission indicated?: not indicated Admission Request Was there a request for admission?: No Disposition Plan Disposition Plan: Discharge Discharge Attestation Discharge Attestation: The patient and all family members were given an opportunity to ask questions and understood the discharge instructions. Discharge instructions specifically effects, indications for sooner follow up or return to the emergency department, and the expected course of current diagnosis. Patient condition: Stable Discharge Plan Plan Patient Disposition: HOME (Self Care) Prescriptions/Referrals Prescriptions/Med Rec: No Action albuterol sulfate 90 mcg/actuation HFA aerosol inhaler 2 inh inhalation QID PRN (Reason: shortness of breath or wheezing) Qty: 8.5 0RF gabapentin 600 mg tablet 600 mg PO TID Patient Comments: TAKE 1 TABLET BY MOUTH THREE TIMES A DAY olanzapine 5 mg tablet 5 mg PO HS Patient Comments: TAKE 1 TABLET BY MOUTH EVERYDAY AT BEDTIME methadone 5 mg Tablet 140 mg PO 0600 escitalopram oxalate 10 mg tablet 10 mg PO QDAY albuterol sulfate 90 mcg/actuation HFA aerosol inhaler 1 inh inhalation QID PRN (Reason: shortness of breath or wheezing) Qty: 8.5 0RF hydrocodone-acetaminophen 10-325 mg tablet 1 tab PO Q6H MDD 4 PRN (Reason: pain) Qty: 20 0RF Referrals: Karena Tsai MD [Primary Care Provider] - In 1 week Problem List Clinical Impression: Swelling of lower extremity Patient/Caregiver Discharge Instructions Education Materials: ED Leg Swelling in a Single Leg Additional Instructions: For pain, take 1-2 Tylenol 500mg tablets every 6 hours. Follow-up with your primary care doctor in 3 to 5 days for recheck. You can return to the emergency department sooner if symptoms worsen or if you notice any new, concerning issues. Print Language: [place] Stand Alone Forms: [facility] Info., Patient Portal Info Letter
[2025-02-07 08:56] LABS: Basophils # (Auto) 0.0 Thou/mm3 (0.0-0.2); Basophils % (Auto) 0 % (0-2.5); Eosinophils # (Auto) 0.0 Thou/mm3 (0.0-0.5); Eosinophils % (Auto) 0 % (0-10); Hematocrit 32.8 % (36.0-46.0); Hemoglobin 10.3 g/dL (12.0-16.0); Immature Granulocytes Auto 0.03 Thou/mm3 (0.00-0.00); Lymphocytes # (Auto) 0.8 Thou/mm3 (1.0-4.8); Lymphocytes % (Auto) 10 % (10-50); Mean Corpuscular HGB Conc 31.4 g/dl (31.0-37.0); Mean Corpuscular Hemoglobin 26.9 pg (25.0-35.0); Mean Corpuscular Volume 86 fL (80-100); Monocytes # (Auto) 0.8 Thou/mm3 (0.0-0.8); Monocytes % (Auto) 12 % (0-12); Neutrophils # (Auto) 5.7 Thou/mm3 (1.8-7.7); Neutrophils % (Auto) 78 % (37-80); Nucleated Red Blood Cell # 0.00 Thou/mm3 (0.00-0.00); Nucleated Red Blood Cell % 0 /100 WBC (0); Platelet Count 237 Thou/mm3 (140-440); RDW Standard Deviation 45.4 fL (36.4-46.3); Red Blood Count 3.83 Miln/mm3 (4.00-5.20); White Blood Count 7.3 Thou/mm3 (3.6-11.0)
[2025-02-07 09:04] LABS: Alanine Aminotransferase 39 U/L (10-49); Albumin, Serum 3.7 gm/dL (3.5-5.0); Albumin/Globulin Ratio 1.1 (1.2-2.2); Alkaline Phosphatase 147 U/L (46-116); Anion Gap 9 (7-16); Aspartate Amino Transferase 46 U/L (0-34); BUN/Creatinine Ratio 28 Ratio (12-20); Bilirubin,Total 0.5 mg/dL (0.3-1.2); Blood Urea Nitrogen 11 mg/dL (9-23); Calcium 8.6 mg/dL (8.3-10.6); Calcium (Corrected) 8.8 mg/dL (8.5-10.1); Carbon Dioxide 31.2 mMol/L (20.0-31.0); Chloride 98 mMol/L (98-107); Creatinine (Component) 0.4 mg/dL (0.6-1.3); Estimated Creatinine Clearance 189.9 mL/min (>60); Globulin 3.4 gm/dL (2.3-3.5); Glucose 112 mg/dL (74-106); Osmolality,Calculated 276 (275-295); Potassium 3.8 mMol/L (3.4-5.1); Sodium 138 mMol/L (136-145); Total Protein 7.1 gm/dL (5.7-8.2); eGFR > 60 See Note
--- NOTE | 2025-02-07 10:17 | XR_ITS ---
Examination: Duplex scan of the lower extremity, unilateral left Date and time of exam: 02/07/2025, 10:15 a.m. Technique: Duplex scan of the extremity veins using B-mode/grayscale imaging and Doppler spectral analysis and color flow Attention is directed to internal echogenicity, compression and augmentation involving these veins, color flow assessment, spectral analysis Findings: Major deep venous structures in the extremity demonstrate normal course and caliber. There is no evidence of deep vein thrombosis. Normal color flow and spectral analysis Impression: Negative for DVT..
[2025-02-07] MEDS: KETOROLAC INJ 30 MG/ML VIAL IVP (12:45)
[2025-02-07 12:54] VITALS: BP 142/90; PULSE 72; RESP 13; TEMP 36.7; O2SAT 98
[2025-02-07 12:55] VITALS: PULSE 72; RESP 13; RESP 96
== END 2025-02-07 13:15 | disposition home or self-care (01) ==
PROVIDERS: Emergency Provider Emergency Medicine; PCP Family Medicine
DX: M79.89 Other specified soft tissue disorders (principal); F11.23 Opioid dependence with withdrawal; F19.11 Other psychoactive substance abuse, in remission; G89.29 Other chronic pain; Z59.01 Sheltered homelessness; Z96.60 Presence of unspecified orthopedic joint implant
CPT/HCPCS: 36415; 80053; 82010; 83690; 85025; 93971; 96361; 96374; 99283; J1885; J7030

== ENCOUNTER 2025-02-27 19:28 | Inpatient (IN) | payer MEDICAID, SELFPAY ==
[2025-02-27 19:29] VITALS: BMI 34.9
[2025-02-27 20:09] VITALS: BP 150/99; PULSE 98; RESP 18; TEMP 37.1; O2SAT 99
--- NOTE | 2025-02-27 20:13 | PD.EDRME ---
Rapid Medical Screening Exam RME Arrival date/time: 02/27/25 19:28 Chief Complaint: Extremity Injury, Lower Time Seen by Provider: 02/27/25 20:08 Vital signs: Vital Signs Temperature 98.7 F 02/27/25 20:09 Pulse Rate 98 02/27/25 20:09 Respiratory Rate 18 02/27/25 20:09 Blood Pressure 150/99 H 02/27/25 20:09 Pulse Oximetry (%) 99 02/27/25 20:09 Oxygen Delivery Method Room Air 02/27/25 20:09 E Narrative: LLE redness, pain, swelling since yesterday. Also c/o headache that started this morning. Exam: Erythema, swelling to LLE Clinical Impression: Leg redness/pain, headache
--- NOTE | 2025-02-27 20:14 | XR_ITS ---
Examination: Tibia-Fibula, left, 2 views Technique: Tibia-fibula AP lateral 2 views Date and time of exam: February 27, 2025, 2038 hours INDICATIONS: Left leg redness swelling and pain beginning yesterday FINDINGS: Periosteal new bone along the anterior margin of the tibia on the lateral view Severe osteopenia No fracture IMPRESSION: Suspicious for osteomyelitis involving the tibia, consider MRI lower extremity without contrast follow-up
--- NOTE | 2025-02-27 20:14 | XR_ITS ---
Examination: Knee, right, 3 views Technique: Knee AP, lateral, oblique 3 views Date and time of exam: February 27, 2025, 2034 hours INDICATIONS: Left knee redness swelling and pain beginning yesterday. FINDINGS: Large knee effusion Prominent osteopenia Advanced tricompartment osteoarthritis with erosive change involving the lateral joint space IMPRESSION: Advanced tricompartment arthritic change including erosive change involving the lateral joint space, septic arthritis would be included in the differential Consider fluoroscopically guided aspiration of the left knee joint follow-up as clinically warranted
--- NOTE | 2025-02-27 20:16 | XR_ITS ---
Examination: Duplex scan of the lower extremity, unilateral left complete Date and time of exam: February 27, 2025, 2053 hours INDICATIONS: Left leg pain and swelling beginning February 07, 2025 Technique: Duplex scan of the extremity veins using B-mode/grayscale imaging and Doppler spectral analysis and color flow Attention is directed to internal echogenicity, compression and augmentation involving these veins, color flow assessment, spectral analysis Findings: Major deep venous structures in the extremity demonstrate normal course and caliber. There is no evidence of deep vein thrombosis. Normal color flow and spectral analysis Impression: Negative for DVT..
[2025-02-27 20:49] LABS: Lactate (Lactic Acid) 0.5 mMol/L (0.4-2.0)
[2025-02-27 20:52] LABS: Basophils # (Auto) 0.0 Thou/mm3 (0.0-0.2); Basophils % (Auto) 0 % (0-2.5); Eosinophils # (Auto) 0.0 Thou/mm3 (0.0-0.5); Eosinophils % (Auto) 0 % (0-10); Hematocrit 36.5 % (36.0-46.0); Hemoglobin 11.6 g/dL (12.0-16.0); Immature Granulocytes Auto 0.03 Thou/mm3 (0.00-0.00); Lymphocytes # (Auto) 1.0 Thou/mm3 (1.0-4.8); Lymphocytes % (Auto) 15 % (10-50); Mean Corpuscular HGB Conc 31.8 g/dl (31.0-37.0); Mean Corpuscular Hemoglobin 26.9 pg (25.0-35.0); Mean Corpuscular Volume 85 fL (80-100); Monocytes # (Auto) 0.7 Thou/mm3 (0.0-0.8); Monocytes % (Auto) 10 % (0-12); Neutrophils # (Auto) 4.9 Thou/mm3 (1.8-7.7); Neutrophils % (Auto) 74 % (37-80); Nucleated Red Blood Cell # 0.00 Thou/mm3 (0.00-0.00); Nucleated Red Blood Cell % 0 /100 WBC (0); Platelet Count 167 Thou/mm3 (140-440); RDW Standard Deviation 45.4 fL (36.4-46.3); Red Blood Count 4.31 Miln/mm3 (4.00-5.20); White Blood Count 6.6 Thou/mm3 (3.6-11.0)
[2025-02-27 21:01] LABS: Sed Rate (ESR) 99 mm/hr (0-30)
[2025-02-27 21:20] LABS: Alanine Aminotransferase 49 U/L (10-49); Albumin, Serum 4.4 gm/dL (3.5-5.0); Albumin/Globulin Ratio 1.3 (1.2-2.2); Alkaline Phosphatase 130 U/L (46-116); Anion Gap 9 (7-16); Aspartate Amino Transferase 62 U/L (0-34); BUN/Creatinine Ratio 20 Ratio (12-20); Bilirubin,Total 0.4 mg/dL (0.3-1.2); Blood Urea Nitrogen 12 mg/dL (9-23); C-Reactive Protein 7.8 mg/dL (0.0-0.9); Calcium 9.2 mg/dL (8.3-10.6); Calcium (Corrected) 9.2 mg/dL (8.5-10.1); Carbon Dioxide 27.6 mMol/L (20.0-31.0); Chloride 100 mMol/L (98-107); Creatinine (Component) 0.6 mg/dL (0.6-1.3); Estimated Creatinine Clearance 126.6 mL/min (>60); Globulin 3.5 gm/dL (2.3-3.5); Glucose 91 mg/dL (74-106); Osmolality,Calculated 273 (275-295); Potassium 3.9 mMol/L (3.4-5.1); Procalcitonin 0.13 ng/ml (0.0-0.49); Sodium 137 mMol/L (136-145); Total Protein 7.9 gm/dL (5.7-8.2); eGFR > 60 See Note
[2025-02-27] MEDS: ACETAMINOPHEN 500 MG TABLET 1000 MG PO (22:56)
[2025-02-27] MEDS: KETOROLAC INJ 30 MG/ML VIAL IM (22:57)
[2025-02-27 23:11] VITALS: BP 161/97; PULSE 105; RESP 24; TEMP 38.8; O2SAT 99
--- NOTE | 2025-02-27 23:14 | PD.EDLOWEX ---
Lower Extremity Injury RME/HPI General Chief Complaint: Extremity Injury, Lower Stated Complaint: LEFT KNEE PAIN SINCE LAST NIGHT, HUANG Time Seen by Provider: 02/27/25 20:08 Arrival date/time: 02/27/25 19:28 RME / HPI RME / HPI Narrative: LLE redness, pain, swelling since yesterday. Also c/o headache that started this morning. ------- Dr. Castillo?s Main ED Evaluation: 49yo female presents to the ED for a chief complaint of left knee pain and swelling since last night. Patient states she is unable to bend her knee due to the pain. Patient reports having a subjective fever. Patient admits to last using methamphetamines yesterday. Denies any other associated symptoms. NKA. Related Data Home Medications ?Medication ?Instructions ?Recorded ?Confirmed escitalopram oxalate 10 mg tablet 10 mg PO QDAY 01/28/24 01/28/24 gabapentin 600 mg tablet 600 mg PO TID 01/28/24 01/28/24 methadone 5 mg tablet 140 mg PO 0600 01/28/24 01/28/24 olanzapine 5 mg tablet 5 mg PO HS 01/28/24 01/28/24 Previous Rx's ?Medication ?Instructions ?Recorded albuterol sulfate 90 mcg/actuation 1 inh inhalation QID PRN shortness 02/02/24 aerosol inhaler of breath or wheezing #8.5 grams albuterol sulfate 90 mcg/actuation 2 inh inhalation QID PRN shortness 04/08/24 aerosol inhaler of breath or wheezing #8.5 grams hydrocodone 10 mg-acetaminophen 1 tab PO Q6H PRN pain #20 tabs 12/23/24 325 mg tablet Allergies Allergy/AdvReac Type Severity Reaction Status Date / Time No Known Allergies Allergy Verified 02/27/25 19:29 Review of Systems Review of Systems Systems Reviewed: All systems reviewed, normal except as documented Past Medical History Past Medical History NEUROLOGIC: Negative Cerebrovascular Accident, Transient Ischemic Attacks (TIA), Dementia, Alzheimer's Disease, Parkinson's Disease, Brain Tumor, Meningitis, Seizures, Epilepsy, Multiple Sclerosis, Cerebral Palsy, Guillain-Charlotte Syndrome, Spina Bifida, Paralysis, Peripheral Neuropathy, Davis's Palsy, Subdural Hematoma, Migraine, Head Trauma, Spinal Cord Injury or Traumatic Brain Injury CARDIAC: Negative Cardiac Disorders or Congestive Heart Failure RESPIRATORY: Negative Chronic Obstructive Pulmonary Disease (COPD), Asthma, Bronchitis, Emphysema, Pneumonia, Cystic Fibrosis, Pulmonary Edema or Sleep Apnea GASTROINTESTINAL: Positive Gall Bladder Disease and Obesity; Negative Hepatitis, Pancreatitis, Gastrointestinal Bleed, Ulcerative Colitis, Ulcer, Colorectal Cancer, Irritable Bowel, Obstructive Bowel, Hiatal Hernia, Hemorrhoids or Gastroesophageal Reflux Disease GENITOURINARY: Negative Genitourinary Disorders, Renal Disease, Kidney Stones, Polycystic Kidney Disease, Neurogenic Bladder, Inguinal Hernia, Dialysis, Prostate Cancer or Benign Prostatic Hyperplasia REPRODUCTIVE: Negative Breast Cancer, Endometriosis, Genital Herpes, Gonorrhea, Pelvic Inflammatory Disease, Previous Pregnancies, Syphilis, Testicular Cancer or Uterine Prolapse MUSCULOSKELETAL: Positive Musculoskeletal Disorders; Negative Muscular Dystrophy, Bone Cancer or Scoliosis ENT: Negative Cataracts, Glaucoma, Blind, Retinal Detachment, Macular Degeneration, Ear Infection, Deafness, Head Trauma or Eye Prosthesis ENDOCRINE: Negative Diabetes Mellitus Type 1 or Diabetes Mellitus Type 2 HEMATOLOGIC: Negative Blood Disorders, Anemia, Leukemia, Hemophilia, Thalassemia or Sickle Cell Disease PSYCHO/SOCIAL: Negative Psychiatric Problems, Schizophrenia, Recreational Drug Use, Bipolar Disorder, Depression, Anxiety, Behavior Problems, Self-Mutilation, Attention Deficit Disorder, Attention Deficit Hyperactivity Disorder, Depression, Post Traumatic Stress Disorder or Eating Disorder OTHER HISTORY: Positive Blood Transfusions; Negative Hospitalization, Autoimmune Disease, Down Syndrome, Autism, Developmental Delay, Shingles, Falls, Organ Transplant, Chemotherapy, Radiation Therapy, Hyperbaric Therapy, Human Immunodeficiency Virus (HIV), Measles, Mumps, Rubella (Kinyarwanda Measles), Pertussis, Cancer, Breast Cancer, Cervical Cancer, Colorectal Cancer, Lung Cancer, Ovarian Cancer, Prostate Cancer or Testicular Cancer Surgical History SURGICAL: Positive Abdominal Surgery, Joint Replacement and Section; Negative Cardiac Surgery, Open Heart Surgery, Coronary Artery Bypass Graft, Valve Replacement, Vascular Surgery, Coronary Stent, Cardiac Catheterization, Pacemaker, Angiogram, Auto Implanted Cardiovert Defib, Carotid Endarterectomy, Endocrine Surgery, Thyroidectomy, Ear Surgery, Tympanostomy Tube, Eye Surgery, Nose Surgery, Oral Surgery, Tonsillectomy, Adenoidectomy, Cochlear Implant, Corneal Transplant, Throat Surgery, Tracheostomy, Gastric Bypass Surgery, Gastrostomy, Bowel Surgery, Nephrectomy, Transurethral Resection, Amputation, Open Reduction Internal Fixation, Arthroscopy, Neurologic Surgery, Brain Shunt, Mastectomy, Lumpectomy, Hysterectomy, Tubal Ligation or Organ Transplant Social History SMOKING STATUS: Current some day smoker SUBSTANCE USE: former substance user and heroin ED Exam Narrative Physical exam: Generally patient is alert somewhat combative and agitated, heart regular rate and rhythm, lungs clear to auscultation equal bilaterally, abdomen soft bowel sounds present also nontender, extremities show venous stasis color changes to bilateral lower extremities with warmth and tenderness. Patient has grossly swollen left knee. Course Course Course Narrative: 2313: Sepsis alert initiated. Orders made at this time are congruent with ED Adult Sepsis Order List. Re-evaluation is to be completed. Quality Measures none Orders Category Date Time Status COVID-19 Screening Questionnaire NOW Care 02/28/25 00:54 Active IV [Insert IV] NOW Care 02/27/25 23:43 Active US venous duplex LE LT Stat Exams 02/27/25 20:16 Completed XR knee LT 3V Stat Exams 02/27/25 20:14 Completed XR tibia fibula LT 2V Stat Exams 02/27/25 20:14 Completed Blood Culture (Lab) Stat Lab 02/28/25 00:43 Ordered Body Fld Culture & Gram Stain Routine Lab 02/28/25 00:52 Received CBC Stat Lab 02/27/25 20:29 Completed CMP [Comprehensive Metabolic Panel] Stat Lab 02/27/25 20:29 Completed CRP [C-Reactive Protein] Stat Lab 02/27/25 20:29 Completed ESR [Sed Rate (ESR)] Stat Lab 02/27/25 20:29 Completed Lactate (Lactic Acid) Stat Lab 02/27/25 20:29 Completed Procalcitonin Stat Lab 02/27/25 20:29 Completed Synovial Fluid, Cell Cnt/Diff Stat Lab 02/28/25 00:51 Ordered Synovial Fluid, Crystals* Stat Lab 02/28/25 00:51 Ordered Acetaminophen Tab [Tylenol ES Tab] Med 02/27/25 22:30 Discontinued 1,000 mg PO X1 ONE HYDROmorphone INJ [Dilaudid Inj] Med 02/27/25 23:23 Discontinued 1 mg IVP X1 ONE Ketorolac Inj [Toradol Inj] Med 02/27/25 22:30 Discontinued 30 mg IM X1 ONE Lidocaine 1% 20 ml [Xylocaine 1% 20 ML] Med 02/27/25 23:23 Discontinued 20 ml INFL X1 ONE Piper/Tazo 3.375 gm Premix [Zosyn] Med 02/28/25 00:53 Discontinued 3.375 gm in 50 ml IV X1 Vancomycin Pharmacy to Dose Med 02/28/25 09:00 Pending 1 each IV QDAY Vancomycin/Ns 1 gm Ivpb 200 ml Med 02/28/25 01:30 Active IV X1 Vital Signs Vital signs: Vital Signs Temperature 98.7 F 02/27/25 20:09 Pulse Rate 98 02/27/25 20:09 Respiratory Rate 18 02/27/25 20:09 Blood Pressure 150/99 H 02/27/25 20:09 Pulse Oximetry (%) 99 02/27/25 20:09 Oxygen Delivery Method Room Air 02/27/25 20:09 Extremity Injury, Lower MDM Narrative MDM Narrative:: Scribe Attestation: 02/27/25 - Barbara Cast am scribing for and in the presence of Dr. Castillo. I interpreted all labs. White count is 6600. Patient spiked a fever here in the emergency room up to 101.8 degrees. Heart rate went up to 105. Septic workup was then initiated. Blood cultures are obtained. Lactic acid level 0.5. X-ray of the left knee and tibia showed evidence for osteomyelitis. Patient was given Zosyn 4.5 g IV and pharmacy dosed vancomycin IV. There was suspicion for a septic left knee joint due to the patient having marked pain to moving the left knee and tenderness. Patient states that she has had multiple attempts at tapping that left knee in the past without success. I convince her to try to let me this time to see if we can get synovial fluid for analysis. After the patient consented, the lateral aspect of the left knee just lateral and posterior to the posterior edge of the patella was cleansed with alcohol anesthetized 1% lidocaine without epinephrine. Using an 18-gauge needle and 20 cc syringe approximately 5 cc of bloody and exudative material was removed from the left knee. This was sent to lab for analysis however they could not give me a cell count because the clotting of blood within the fluid distorted the cell count. The fluid could still be cultured however. I consulted orthopedic surgeon on-call, Dr. Chand who has agreed to consult on this patient. I discussed this case with the hospitalist and the patient will require admission to the hospital for further treatment and evaluation to evaluate for septic joint and/or osteomyelitis. Patient data External records reviewed:: [facility] previous records (Per chart review, patient was seen here on 02/07/25 for swelling of the lower extremity.) Clinical information provided by:: patient Social determinants that could affect healthcare access:: substance use Patient has the following chronic illnesses:: none How is presenting disease/condition affected by chronic disease/condition?: no chronic disease Evaluation data The following diagnostics were reviewed and interpreted by me:: lab results and radiology exam(s) Lab and/or radiology exams considered but not ordered:: none Interpretation Summary: [facility] Signed Patient: BEAR AG [facility]. Record#: [id number] Birthdate: 1975 Age/Sex: 49 / F Location: [facility] Attending Dr: Ordering Physician: Anderson Galeas PA-C Date of Service: 02/27/25 Procedure(s): XR knee LT 3V Accession Number(s): [id number] cc: Benoit Hinson MD; NO PRIMARY/FAMILY,PHYSICIAN; Anderson Galeas PA-C~ Examination: Knee, right, 3 views Technique: Knee AP, lateral, oblique 3 views Date and time of exam: February 27, 2025, 2034 hours INDICATIONS: Left knee redness swelling and pain beginning yesterday. FINDINGS: Large knee effusion Prominent osteopenia Advanced tricompartment osteoarthritis with erosive change involving the lateral joint space IMPRESSION: Advanced tricompartment arthritic change including erosive change involving the lateral joint space, septic arthritis would be included in the differential Consider fluoroscopically guided aspiration of the left knee joint follow-up as clinically warranted Dictated By: Benoit Hinson MD Signed By <Electronically signed by Benoit Hinson MD in > 02/27/25 2242 [facility] Signed Patient: BEAR [facility]. Record#: [id number] Birthdate: 1975 Age/Sex: 49 / F Location: [facility] Attending Dr: Ordering Physician: Anderson Galeas PA-C Date of Service: 02/27/25 Procedure(s): XR tibia fibula LT 2V Accession Number(s): [id number] cc: Benoit Hinson MD; NO PRIMARY/FAMILY,PHYSICIAN; Anderson Galeas PA-C~ Examination: Tibia-Fibula, left, 2 views Technique: Tibia-fibula AP lateral 2 views Date and time of exam: February 27, 20252038 hours INDICATIONS: Left leg redness swelling and pain beginning yesterday FINDINGS: Periosteal new bone along the anterior margin of the tibia on the lateral view Severe osteopenia No fracture IMPRESSION: Suspicious for osteomyelitis involving the tibia, consider MRI lower extremity without contrast follow-up Dictated By: Benoit Hinson MD Signed By: <Electronically signed by Benoit Hinson MD in OV> 02/27/25 224 [facility] Signed Patient: BEAR AG Record#: [id number] Birthdate: 1975 Age/Sex: 49 / F Location: [facility] Attending Dr: Ordering Physician: Anderson Galeas PA-C Date of Service: 02/27/25 Procedure(s): US venous duplex LE LT Accession Number(s): [id number] cc: Benoit Hinson MD; NO PRIMARY/FAMILY,PHYSICIAN; Anderson Galeas PA-C~ Examination: Duplex scan of the lower extremity, unilateral left complete Date and time of exam: February 27, 2025, 2053 hours INDICATIONS: Left leg pain and swelling beginning February 07, 2025 Technique: Duplex scan of the extremity veins using B-mode/grayscale imaging and Doppler spectral analysis and color flow Attention is directed to internal echogenicity, compression and augmentation involving these veins, color flow assessment, spectral analysis Findings: Major deep venous structures in the extremity demonstrate normal course and caliber. There is no evidence of deep vein thrombosis. Normal color flow and spectral analysis Impression: Negative for DVT.. Dictated By: Benoit Hinson MD Signed By: <Electronically signed by Benoit Hinson MD in OV> 02/27/252246 Medications / Prescriptions Medications or Prescriptions considered but not ordered:: none Medication administrations:: Medication Administration History Vancomycin/Sodium Chloride (Vancomycin/Ns 1 Gm Ivpb) 200 mls @ 120 mls/hr IV X1 ONE Stop: 02/28/25 03:09 Last Admin: 02/28/25 01:44 Dose: 120 mls/hr Documented By: WO Pharmacy Consult (Vancomycin Pharmacy To Dose 1 Each Each) 1 each IV QDAY YVES Stop: 03/30/25 08:59 Discontinued Medications Acetaminophen (Acetaminophen 500 Mg Tablet) 1,000 mg PO X1 ONE Stop: 02/27/25 22:31 Last Admin: 02/27/25 22:56 Dose: 1,000 mg Documented By: SARITHA Hydromorphone HCl (Hydromorphone Inj 2 Mg/Ml Vial) 1 mg IVP X1 ONE Stop: 02/27/25 23:24 Last Admin: 02/27/25 23:48 Dose: 1 mg Documented By: CVL Piperacillin/Tazobactam/Dextrose (Zosyn) 3.375 gm in 50 mls @ 100 mls/hr IV X1 ONE; Protocol Stop: 02/28/25 01:22 Last Admin: 02/28/25 01:37 Dose: 100 mls/hr Documented By: SARITHA Ketorolac Tromethamine (Ketorolac Inj 30 Mg/Ml Vial) 30 mg IM X1 ONE Stop: 02/27/25 22:31 Last Admin: 02/27/25 22:57 Dose: 30 mg Documented By: SARITHA Lidocaine HCl (Lidocaine Hcl 1% 20 Ml Vial) 20 ml INFL X1 ONE Stop: 02/27/25 23:24 Last Admin: 02/27/25 23:59 Dose: 20 ml Documented By: SF see above Consultations Consultation(s) initiated? (list below): Yes Diagnosis Extremity Injury, Lower Differential Diagnosis: other (See MDM) Most likely diagnosis given after review of the tests above:: see clinical impression below Admission Indicated Admission indicated?: indicated Admission Request Was there a request for admission?: Yes Admission Attestation Admission request attestation: Discussed case with [] from Hospitalist service regarding admission. Discussed patients ED course, exam findings, labs, and radiology results. The Hospitalist [agrees,declines] to accept the patient for admission. Disposition Plan Disposition Plan: Admit Discharge Plan Plan Patient Disposition: Admit Acute Care w/in Hospital Prescriptions/Referrals Prescriptions/Med Rec: No Action albuterol sulfate 90 mcg/actuation HFA aerosol inhaler 2 inh inhalation QID PRN (Reason: shortness of breath or wheezing) Qty: 8.5 0RF gabapentin 600 mg tablet 600 mg PO TID Patient Comments: TAKE 1 TABLET BY MOUTH THREE TIMES A DAY olanzapine 5 mg tablet 5 mg PO HS Patient Comments: TAKE 1 TABLET BY MOUTH EVERYDAY AT BEDTIME methadone 5 mg Tablet 140 mg PO 0600 escitalopram oxalate 10 mg tablet 10 mg PO QDAY albuterol sulfate 90 mcg/actuation HFA aerosol inhaler 1 inh inhalation QID PRN (Reason: shortness of breath or wheezing) Qty: 8.5 0RF hydrocodone-acetaminophen 10-325 mg tablet 1 tab PO Q6H MDD 4 PRN (Reason: pain) Qty: 20 0RF Referrals: No Primary/Family,Physician [Primary Care Provider] - In 1 week Problem List Clinical Impression: Osteomyelitis, Methamphetamine abuse, Septic joint Patient/Caregiver Discharge Instructions Print Language: Urdu Stand Alone Forms: Елена Award Info., Patient Portal Info Letter
[2025-02-27] MEDS: HYDROmorphone INJ 2 MG/ML VIAL 1 MG IVP (23:48)
[2025-02-27] MEDS: LIDOCAINE HCL 1% 20 ML VIAL INFL (23:59)
[2025-02-28] VITALS (10 sets, daily range): BP systolic 114–154; BP diastolic 55–98; PULSE 81–92; RESP 16–96; TEMP 36.3–37.6; O2SAT 93–95; BMI 34.0
[2025-02-28] MEDS: PIPER/TAZO 3.375 GM PREMIX 3.375 GM/50 ML BAG IV (01:37)
[2025-02-28] MEDS: VANCOMYCIN/NS 1 GM IVPB 200 ML IV (01:44)
--- NOTE | 2025-02-28 02:23 | ESHP_ITS ---
<Statement entered by Jose G Bernard MD - 02/28/25 07:12> I have discussed and was present for the essential components of the history, physical examination, diagnosis, and treatment plan with the resident. I agree with the patient's care as documented by the resident and amended herein by me. Jose G Bernard MD FACP. Documentation for date of: 02/28/25 HPI History of Present Illness History of present illness: 49yo unhoused female on methadone presents to the ED for a chief complaint of left knee pain and swelling since last night. ED Course Summary: Vitals: T 98.7F HR 98 RR 18 BP 150/99 O2 99% RA Labs: CBC and CMP unremarkable other than CRP 7.8 AST 62 ALT 42 ALP 130 Imaging: Venous duplex US negative for DVT, XR tib/fib Tx: Patient was given Zosyn 4.5 g IV and pharmacy dosed vancomycin IV. Dr. Mannie barajas consulted Admitted for septic joint and/or osteomyelitis Upon initial examination patient is very clearly high on meth. She had a small amount of fluid drained in the ED, but due to her tricompartment syndrome it was difficult to aspirate. Patient states she is unable to bend her knee due to the pain. Patient reports having a subjective fever. Patient admits to last using methamphetamines yesterday. Denies any other associated symptoms. Code: Full Insulin: None Medical Hx: UTO Medications: Escitalopram, arnoldo, methadone, zyprexa Allergies: UTO Surgical history: cholecystectomy, Living: residentially challenged Work: Not working Alcohol: Denies Cigarettes/tobacco: Yes, since age 11 --> 38 pack years Recreational drugs: pills and heroin but now on methadone, meth currently Patient admitted for: Septic arthirits/osteomyelitis All 12 systems reviewed and were negative except otherwise stated in HPI. Exam Vital Signs Temp Pulse Resp BP Pulse Ox O2 Del Method 99.7 F 88 18 144/80 H 94 L Room Air 02/28/25 00:14 02/28/25 00:14 02/28/25 00:14 02/28/25 00:14 02/28/25 00:14 02/28/25 00:14 Narrative Exam GENERAL APPEARANCE: AOx3. NAD, activity normal for age, well developed/ well nourished, no cyanosis, pallor, or diaphoresis. High on meth HEENT: Normocephalic atraumatic, no facial trauma, neck is supple. Lids/conjunctiva normal. Mucous membranes moist, nares normal, lips/teeth normal uvula midline without oral pharyngeal erythema, exudate or swelling TMs normal bilaterally. No lymphangitis/lymphedema. CARDIAC: Regular rate and rhythm, S1+S2 heard. No murmurs, rubs, or gallops noted RESPIRATORY: respiratory effort normal, speaks in full sentences, no tripod position, no accessory muscle use. Lungs clear to auscultation without rhonchi, wheezes, rales ABDOMINAL: NBS. Soft, ND/NT. No evidence of fluid wave. No pulsatile masses on exam, rebound tenderness, Ram sign or pain over Mcburney's point. MUSCLES/EXTREMITIES: Chronic venous stasis bilaterally - malave bronzing. trace pedal edema. L knee large swollen and painful, unable to stand on it, pain with passive extension. DERM: Warm, pink and dry. No rashes, dermatoses, petechiae or lesions. NEUROLOGICAL: Speech is clear and appropriate. Normal level of consciousness. Gait and coordination are normal. 5/5 strength in all extremities. PSYCH: Normal mood and affect. Judgement/competence is appropriate Results: Labs 02/27/25 20:29 02/27/25 20:29 Labs: Short CBC 02/27/25 Range/Units 20:29 WBC 6.6 (3.6-11.0) Thou/mm3 Hgb 11.6 L (12.0-16.0) g/dL Hct 36.5 (36.0-46.0) % Plt Count 167 D (140-440) Thou/mm3 BMP 02/27/25 20:29 Sodium 137 Potassium 3.9 Chloride 100 Carbon Dioxide 27.6 BUN 12 Creatinine 0.6 Glucose 91 Calcium 9.2 Liver Function 02/27/25 Range/Units 20:29 Total Bilirubin 0.4 (0.3-1.2) mg/dL AST 62 H (0-34) U/L ALT 49 (10-49) U/L Alkaline Phosphatase 130 H (46-116) U/L Albumin 4.4 (3.5-5.0) gm/dL Quality Measures Quality Measures none Medications Home Medications and Allergies Home Medications ?Medication ?Instructions ?Recorded ?Confirmed ?Type escitalopram oxalate 10 mg tablet 10 mg PO QDAY 02/28/25 History gabapentin 600 mg tablet 600 mg PO TID 01/28/2402/28 History methadone 5 mg tablet 140 mg PO 0600 01/28/2409/17 History olanzapine 5 mg tablet 5 mg PO HS 01/28/24 02/28/25 History quetiapine 50 mg tablet (Seroquel) 50 mg PO ONCE HS 02/28/25 History trazodone 50 mg tablet 50 mg PO HS 02/28/25 5 History Allergies Allergy/AdvReac Type Severity Reaction Status Date / Time No Known Allergies Allergy Verified 02/27/25 19:29 Visit Medications Vancomycin/Sodium Chloride (Vancomycin/Ns 1 Gm Ivpb) 200 mls @ 120 mls/hr IV X1 ONE Stop: 02/28/25 03:09 Last Admin: 02/28/25 01:44 Dose: 120 mls/hr Pharmacy Consult (Vancomycin Pharmacy To Dose 1 Each Each) 1 each IV QDAY YVES Stop: 03/30/25 08:59 Discontinued Medications Acetaminophen (Acetaminophen 500 Mg Tablet) 1,000 mg PO X1 ONE Stop: 02/27/25 22:31 Last Admin: 02/27/25 22:56 Dose: 1,000 mg Hydromorphone HCl (Hydromorphone Inj 2 Mg/Ml Vial) 1 mg IVP X1 ONE Stop: 02/27/25 23:24 Last Admin: 02/27/25 23:48 Dose: 1 mg Piperacillin/Tazobactam/Dextrose (Zosyn) 3.375 gm in 50 mls @ 100 mls/hr IV X1 ONE; Protocol Stop: 02/28/25 01:22 Last Admin: 02/28/25 01:37 Dose: 100 mls/hr Ketorolac Tromethamine (Ketorolac Inj 30 Mg/Ml Vial) 30 mg IM X1 ONE Stop: 02/27/25 22:31 Last Admin: 02/27/25 22:57 Dose: 30 mg Lidocaine HCl (Lidocaine Hcl 1% 20 Ml Vial) 20 ml INFL X1 ONE Stop: 02/27/25 23:24 Last Admin: 02/27/25 23:59 Dose: 20 ml Assessment & Plan Plan 49yo unhoused female on methadone presents to the ED for a chief complaint of left knee pain and swelling since last night. #c/f Septic arthritis #C/f for Osteomyelitis #Hx of tricompartment arthirits s/p aspiration: 5mL fluid, patient still feeling pain with passive extension of knee. Difficult to assess true pain due to incredibly labile responses and obvious meth high. CRP 7.8, ESR 99. Knee XR showed advance tricompartment osteoarthirits with erosive change involving the lateral joint space. Tib/fib XR suspiscious for osteomyelitis involving the TBI Plan: -Ortho Dr. Chand consulted -MRI lower extremity without contrast -Consider fluoroscopically guided aspiration of left knee joint -Vanc (02/28- -Ceftriaxone 2g QD (02/28- -Tylenol IV pain control -Morphine 2mg IVP Q4HR PRN #PSUD - on methadone #Meth use UDS not done in ED, no point in checking now that she has received pain management. And admitted to meth use. 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 Foss. Note written by Baldo Zapata MD PGY-1
--- NOTE | 2025-02-28 03:47 | XR_ITS ---
Examination: MRI left lower leg without contrast Date and time of exam: February 28, 2025, 12:30 p.m. INDICATIONS: Redness swelling and pain involving the lower leg months, suspicious for periosteal new bone along the anterior margin of the tibia on the plain films January 27, 2025 Technique: Multiple MRI axial and sagittal sections lumbar spine. Sagittal T2-weighted images, TR 3500, TE 118 T1 weighted transverse sections, TR 688 T8.5, T2-weighted sagittal sections T1 weighted sagittal sections TR 621, TE 30 T2 axial sections, TR 4, 190, TE 84. Findings: All of the images are degraded by patient motion Edema in the intermuscular planes flexor muscles of the leg There is edema increased signal in the primarily anterior cortex of the tibia on the axial images There is mild edema in the subcutaneous fatty tissue IMPRESSION: Findings are consistent with osteomyelitis involving the anterior cortex of the tibia, recommend this patient return for MRI tibia-fibula images post intravenous contrast
[2025-02-28] MEDS: cefTRIAXone 2 GM in SODIUM CHLORIDE 0.9% (Popper) 50 ML IV (05:06)
[2025-02-28] MEDS: MORPHINE SULF INJ 4 MG/ML VIAL 2 MG IVP ×4 (05:07→22:02)
[2025-02-28 06:24] LABS: Basophils # (Auto) 0.0 Thou/mm3 (0.0-0.2); Basophils % (Auto) 0 % (0-2.5); Eosinophils # (Auto) 0.0 Thou/mm3 (0.0-0.5); Eosinophils % (Auto) 0 % (0-10); Hematocrit 34.1 % (36.0-46.0); Hemoglobin 11.0 g/dL (12.0-16.0); Immature Granulocytes Auto 0.02 Thou/mm3 (0.00-0.00); Lymphocytes # (Auto) 0.9 Thou/mm3 (1.0-4.8); Lymphocytes % (Auto) 15 % (10-50); Mean Corpuscular HGB Conc 32.3 g/dl (31.0-37.0); Mean Corpuscular Hemoglobin 27.6 pg (25.0-35.0); Mean Corpuscular Volume 86 fL (80-100); Monocytes # (Auto) 0.7 Thou/mm3 (0.0-0.8); Monocytes % (Auto) 11 % (0-12); Neutrophils # (Auto) 4.5 Thou/mm3 (1.8-7.7); Neutrophils % (Auto) 73 % (37-80); Nucleated Red Blood Cell # 0.00 Thou/mm3 (0.00-0.00); Nucleated Red Blood Cell % 0 /100 WBC (0); Platelet Count 147 Thou/mm3 (140-440); RDW Standard Deviation 47.0 fL (36.4-46.3); Red Blood Count 3.98 Miln/mm3 (4.00-5.20); White Blood Count 6.2 Thou/mm3 (3.6-11.0)
[2025-02-28 06:53] LABS: Alanine Aminotransferase 36 U/L (10-49); Albumin, Serum 3.9 gm/dL (3.5-5.0); Albumin/Globulin Ratio 1.2 (1.2-2.2); Alkaline Phosphatase 108 U/L (46-116); Anion Gap 9 (7-16); Aspartate Amino Transferase 46 U/L (0-34); BUN/Creatinine Ratio 16 Ratio (12-20); Bilirubin,Total 0.5 mg/dL (0.3-1.2); Blood Urea Nitrogen 8 mg/dL (9-23); Calcium 9.0 mg/dL (8.3-10.6); Calcium (Corrected) 9.1 mg/dL (8.5-10.1); Carbon Dioxide 29.3 mMol/L (20.0-31.0); Chloride 101 mMol/L (98-107); Creatinine (Component) 0.5 mg/dL (0.6-1.3); Estimated Creatinine Clearance 149.7 mL/min (>60); Globulin 3.2 gm/dL (2.3-3.5); Glucose 95 mg/dL (74-106); Magnesium 2.0 mg/dL (1.6-2.6); Osmolality,Calculated 275 (275-295); Phosphorous 4.0 mg/dL (2.4-5.1); Potassium 3.4 mMol/L (3.4-5.1); Sodium 139 mMol/L (136-145); Total Protein 7.1 gm/dL (5.7-8.2); eGFR > 60 See Note
--- NOTE | 2025-02-28 07:51 | ESPR_ITS ---
<Statement entered by Nuno Subramanian MD - 02/28/25 17:12> Ms. 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 Pt states she has been having Knee pain for the last 2 years and was related to osteoarthritis but noticed swelling and erythema of the knee. Pt denied any fevers or chills at home but in the ED had fever. in the ED left need was tapped and minimal fluid was drained. low suspicion for septic arthritis, MRI showed osteomyelitis of the tibia. Pt is started on IV antibiotics with vancomycin and ID is consulted. Pt is a difficult stick and had IV access through pinky finger only, therefore consulted ICU team to obtain femoral line for IV access. Patient was seen and examined by me personally. I have directly supervised and reviewed documentation by the team resident and agree with its findings. ------- Plan of care was discussed with the attending, Dr. Nikki Subramanian, PGY-2 Documentation for date of: 02/28/25 Subjective Subjective Interval history: Ms Partida is a 49 year old woman who is unhoused. she has history of heroine IV drug use, and is being treated for opioid use disorder with methadone. She endorses regular meth use, and that she had smoked meth yesterday because she thought it would help to aleviate her pain. She presented with acute on chronic Left knee pain and tenderness. she states that she has had difficulty ambulating for the past 3 months and uses a wheelchair to get around. She was febrile, tachypnic, tachycardic and had elevated BP and elevated CRP. Dr chand was consulted, Blood cultures are pending and cytology of knee tap is uncollected. per discussion with Dr. Chand he does not think that this is septic arthritis, as pt has several tears and bone on bone arthitis plan for picc line given poor IV access Meth withdrawl is causing pt to be highly agitated. - given seroquel 25 x1 MRI L leg with osteomyelitis Exam Vital Signs Temp Pulse Resp BP Pulse Ox O2 Del Method 97.7 F 83 18 114/55 L 95 Room Air 02/28/25 04:19 02/28/25 04:19 02/28/25 04:19 02/28/25 04:19 02/28/25 04:19 02/28/25 04:19 Narrative Exam GENERAL APPEARANCE: AOx3. NAD, activity normal for age, well developed/ well nourished, no cyanosis, pallor, or diaphoresis. agitated and likely withdrawing from meth HEENT: Normocephalic atraumatic, no facial trauma, poor dentition CARDIAC: Regular rate and rhythm, S1+S2 heard. No murmurs, rubs, or gallops noted, diminished pedal pulses, RESPIRATORY: respiratory effort normal, speaks in full sentences, no tripod position, no accessory muscle use. Lungs clear to auscultation without rhonchi, wheezes, rales ABDOMINAL: NBS. Soft, ND/NT. No evidence of fluid wave. No pulsatile masses on exam, rebound tenderness, MUSCLES/EXTREMITIES: Chronic venous stasis bilaterally - malave bronzing and violacious. trace pedal edema. L knee large swollen and painful, unable to stand on it, pain with passive extension. DERM: Warm, pink and dry. No rashes, dermatoses, petechiae or lesions. NEUROLOGICAL: Speech is clear and appropriate. Normal level of consciousness. Gait and coordination are normal. 5/5 strength in all extremities. PSYCH: Normal mood and affect. Judgement/competence is appropriate Objective Labs 03/01/25 05:20 03/01/25 05:20 Labs: Laboratory Results - last 24 hr 02/27/25 02/28/25 20:29 04:35 WBC 6.6 6.2 RBC 4.31 3.98 L Hgb 11.6 L 11.0 L Hct 36.5 34.1 L MCV 85 86 MCH 26.9 27.6 MCHC 31.8 32.3 RDW Std Deviation 45.4 47.0 H Plt Count 167 D 147 Neut % (Auto) 74 73 Lymph % (Auto) 15 15 [place] % (Auto) 10 11 Eos % (Auto) 0 0 Baso % (Auto) 0 0 Neut # (Auto) 4.9 4.5 Lymph # (Auto) 1.0 0.9 L [place] # (Auto) 0.7 0.7 Eos # (Auto) 0.0 0.0 Baso # (Auto) 0.0 0.0 Immature Gran # (Auto) 0.03 H 0.02 H Absolute Nucleated RBC 0.00 0.00 Immature Gran % 1 H 0 Nucleated RBC % 0 0 ESR 99 H Sodium 137 139 Potassium 3.9 3.4 D Chloride 100 101 Carbon Dioxide 27.6 29.3 Anion Gap 9 9 BUN 12 8 L Creatinine 0.6 0.5 L Estim Creat Clear Calc 126.6 149.7 eGFR > 60 > 60 BUN/Creatinine Ratio 20 16 Glucose 91 95 Calculated Osmolality 273 L 275 Lactic Acid 0.5 Calcium 9.2 9.0 Corrected Calcium 9.2 9.1 Phosphorus 4.0 Magnesium 2.0 Total Bilirubin 0.4 0.5 AST 62 H 46 H ALT 49 36 Alkaline Phosphatase 130 H 108 D C-Reactive Prot, Quant 7.8 H Total Protein 7.9 7.1 Albumin 4.4 3.9 D Globulin 3.5 3.2 Albumin/Globulin Ratio 1.3 1.2 Procalcitonin 0.13 Quality Measures Quality Measures VTE prophylaxis Assessment & Plan Assessment Current Active Medications: Generic Name Dose Route Start Last Admin Trade Name Freq PRN Reason Stop Dose Admin Acetaminophen 650 mg 02/28/25 02:15 Acetaminophen 325 Mg Tablet PO 03/30/25 02:14 Q6H PRN Fever >100.4 or pain 1-3 Docusate Sodium 100 mg 02/28/25 09:00 Docusate Sod 100 Mg Capsule PO 03/30/25 08:59 QDAY [facility] Protocol Acetaminophen 1,000 mg in 100 mls @ 250 mls/hr 02/28/25 02:22 Ofirmev Inj IV 02/28/25 18:23 Q6HR PRN Pain 4-6 Ceftriaxone Sodium/Dextrose 2 gm in 50 mls @ 100 mls/hr 02/28/25 21:00 Rocephin/D5w 2gm IV 03/07/25 20:59 2100 [facility] Vancomycin HCl/Dextrose 250 mls @ 120 mls/hr 02/28/25 06:45 Vancomycin/D5w 1,250 Mg Ivpb IV 03/07/25 06:44 Q8HR [facility] Protocol Methadone HCl 140 mg 03/01/25 06:00 Methadone Hcl 10 Mg Tablet PO 03/06/25 05:59 0600 [facility] Morphine Sulfate 2 mg 02/28/25 02:21 02/28/25 05:07 Morphine Sulf Inj 4 Mg/Ml Vial IVP 03/05/25 02:20 2 mg Q4HR PRN Administration PAIN SCALE 7-10 (Severe Ondansetron HCl 4 mg 02/28/25 02:15 Ondansetron Inj 2 Mg/Ml Inj 2 Ml IVP 03/30/25 02:14 Q6H PRN NAUSEA OR VOMITING Protocol Pantoprazole Sodium 40 mg 02/28/25 09:00 Pantoprazole Inj 40 Mg Vial IVP 03/30/25 08:59 QDAY [facility] Pharmacy Consult 1 each 02/28/25 09:00 Vancomycin Pharmacy To Dose 1 Each Each IV 03/30/25 08:59 QDAY PRN PROTOCOL Plan Ms. 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 Chand report)presents to the ED for a chief complaint of left knee pain and swelling since last night and sepsis, per discussion with Dr. Chand, he has low level of suspicion for septic arthritis. Pending picc line placement given poor IV access. vss are stable, not actively spiking fevers while on vanc. ID consulted given osteo findings of left anterior tibia. continues on vanc. #Osteomyelitis #c/f Septic arthritis- ruled out #Hx of tricompartment arthirits s/p aspiration: 5mL fluid, patient still feeling pain with passive extension of knee. Difficult to assess true pain due to incredibly labile responses and obvious meth high. CRP 7.8, ESR 99. Knee XR showed advance tricompartment osteoarthirits with erosive change involving the lateral joint space. Tib/fib XR suspiscious for osteomyelitis involving the TBI L Knee MRI w/o contrast with findings are consistent with osteomyelitis involving the anterior cortex of the tibia, recommend this patient return for MRI tibia-fibula images post intravenous contrast Plan: -Vanc (02/28- -Ceftriaxone 2g QD (02/28-03/01) -Zosyn 3.375 x1 (02/28) -Tylenol IV pain control -Morphine 2mg IVP Q4HR PRN -picc line placement tomorrow -UA bland -pending blood cx -Ortho Dr. Chand consulted, appreciate recs -ID consulted, Dr. Ruiz, appreciate recs. -follow up arthrocentesis fluid cultures #PSUD - on methadone #Active Meth use #Hx of opioid Use disorder #Agitation UDS not done in ED, no point in checking now that she has received pain management. And admitted to meth use. given x1 seroquel 25 mid day for agitation. Plan: -Remnant Sorter patient on cessation -Ok to use pain meds for pain control -continue home quetiapine 50 qhs Anxiety Depression Insomnia - hold home trazadone - cont home quetiapine 50 qhs - cont home escetalipram 10 mg qd Neuropathy Venous stasis - cont home gabapentin 600 mg TID Electrolyte abnormalities - repleate as indicated - please give PO meds with sips of water. pt has 20 gauge iv in Right pinky finger given difficult stick and hx of iv drug use and poor veins - picc line pending Health Maintenance: Code status: Full DVT prophylaxis: SCDs GI prophylaxis: protonix Diet: NPO at midnight, pending picc line placement Mauricio: Yes Lines: PIV 20 gauge in R pinky finger Supplemental O2: None Disposition: Med surg for concerns for osteomyelitis of L anterior tibia Plan discussed with my attending Dr. Jordan and my senior resident Dr. Dao Orellana MD PGY1 Attending Provider Attestation/Addendum Segun, Meg Jordan, , attest that I was physically present for the giordano portions of the service and evaluated the patient with the resident and I reviewed and discussed the case with the resident and agree with the resident's findings and plans of care as documented above Patient seen and evaluated this AM following MRI. Patient is in a lot of pain due to left knee. It is very edematous, painful with passive and active ROM. No warmth noted or tenderness to palpation. B/L LE edema has evidence b/l LE venous stasis, no open lesions noted. Patient states she has abscesses in her left AC joint and her right abdomen, where well healed scars are noted, due to prevous injection site infections from heroin use. Patient takes methadone now and takes psychiatric medications, but continues to use methamphetamine, last used yesterday. Patient lives at a homeless assisted and uses a wheelchair for mobility. Extensive lateral meniscus tears, high grade sprain versus complete tear anterior cruciate ligament, prominent enhancement of synovial lining of the knee joint was noted on MRI of the knee in 03/19.Patient has had several aspirations of the knee in the past and states they were all unremarkable. Patient states she does not wish to undergo anymore aspirations. Case was discussed with ortho who does not suspect any septic arthritis. Source of fever remains obscure. Will obtain urine cultures and CXR. blood cultures are pending. MRI of knee pending.
[2025-02-28] MEDS: VANCOMYCIN/D5W 1,250 MG IVPB 250 ML 120 MG IV ×3 (08:38→21:45)
[2025-02-28] MEDS: METHADONE HCL 10 MG TABLET 140 MG PO (08:39)
[2025-02-28] MEDS: DOCUSATE SOD 100 MG CAPSULE PO (10:51)
--- NOTE | 2025-02-28 10:51 | PD.ORTHCON ---
HPI Consult details Reason for consultation narrative: Left knee pain History of present illness: The patient is a 49-year-old female with over 1 year of left knee pain. She was told she needed a knee replacement in the past. She reports 1 day increase in pain. She is a IV drug abuser and is homeless and is not a great candidate for total knee replacement. She came into the emergency room yesterday with elevated ESR and CRP. She reports she has had severe knee pain for the last 4 months which increased in the last day. She reports that she has been aspirated 6 times in the past 6 months at [facility], and [facility] [place] been negative. She reports the last tap has been so painful that she does not want further taps. She has known kenr-ep-[id number] arthritis of the lateral compartment of her left knee. She was aspirated in the ER where they found 5 cc of blood. This was sent for culture. No cell count could be obtained from this. Meds Home Medications and Allergies Home Medications ?Medication ?Instructions ?Recorded ?Confirmed ?Type escitalopram oxalate 10 mg tablet 10 mg PO QDAY 01/28/24 02/28/25 History gabapentin 600 mg tablet 600 mg PO TID 01/28/24 02/28/25 History methadone 5 mg tablet 140 mg PO 0600 01/28/24 02/28/25 History olanzapine 5 mg tablet 5 mg PO HS 01/28/24 02/28/25 History quetiapine 50 mg tablet (Seroquel) 50 mg PO ONCE HS 02/28/25 02/28/25 History trazodone 50 mg tablet 50 mg PO HS 02/28/25 02/28/25 History Allergies Allergy/AdvReac Type Severity Reaction Status Date / Time No Known Allergies Allergy Verified 02/27/25 19:29 Exam Vital Signs Temp Pulse Resp BP Pulse Ox O2 Del Method 97.6 F 82 16 142/98 H 94 L Room Air 02/28/25 08:00 02/28/25 08:00 02/28/25 08:00 02/28/25 08:00 02/28/25 08:00 02/28/25 08:00 Additional findings Additional findings: Patient is in no acute distress and is cooperative with the examination today. Breathing is nonlabored. Patient has a normal mood and affect. The patient has a gait that is nonantalgic Bilateral extremities were evaluated and demonstrates sensation intact to light touch. Palpable pedal pulses are present. No significant edema is present. Bilateral hips were examined. The patient has no pain with log roll of the hips. Internal rotation to 30 degrees and external rotation to 30 degrees is painless. Negative FADIR. Right knee was examined today. The right knee is in reasonable alignment. Range of motion from 0-120 degrees. Knee is stable to varus and valgus as well as AP translation with <5mm. Patient has a negative [place]. There is no pain with patellofemoral compression and no crepitus noted. The knee is nontender to palpation. Left knee was examined today. The left knee is in neutral alignment. Range of motion 0 to 50 degrees. The knee feels stable to varus and valgus stress as well as AP translation. Patient has a positive Sidney's. There is crepitus noted. She is very tender to palpation laterally. On exam she has venous stasis skin changes of both legs. There is no significant erythema. Results - Ortho Labs 02/28/25 04:35 02/28/25 04:35 Labs: Short CBC 02/27/25 02/28/25 Range/Units 20:29 04:35 WBC 6.6 6.2 (3.6-11.0) Thou/mm3 Hgb 11.6 L 11.0 L (12.0-16.0) g/dL Hct 36.5 34.1 L (36.0-46.0) % Plt Count 167 D 147 (140-440) Thou/mm3 BMP 02/27/25 02/28/25 20:29 04:35 Sodium 137 139 Potassium 3.9 3.4 D Chloride 100 101 Carbon Dioxide 27.6 29.3 BUN 12 8 L Creatinine 0.6 0.5 L Glucose 91 95 Calcium 9.2 9.0 Liver Function 02/27/25 02/28/25 Range/Units 20:29 04:35 Total Bilirubin 0.4 0.5 (0.3-1.2) mg/dL AST 62 H 46 H (0-34) U/L ALT 49 36 (10-49) U/L Alkaline Phosphatase 130 H 108 D (46-116) U/L Albumin 4.4 3.9 D (3.5-5.0) gm/dL Assessment & Plan Problem List (1) Arthritis of left knee: Status: Acute (2) Pain in left knee: Status: Acute Assessment and plan: patient is a 49-year-old female with x-rays evidence of [id number] arthritis of the lateral compartment. I have looked at her serial radiographs and it demonstrates valgus osteoarthritis with a lateral compartment degenerative changes. The x-rays are not any different than the prior xrays from January 2024 which also demonstrated vrid-ae-gdhk arthritis. We are obviously trying to rule out a septic joint of her left knee. She has chronic knee pain and has not ambulated in over 3 months. She is homeless and IV drug abuser which are risk factors for septic joint. However, over 6 attempted aspirations have been performed in the last 3 months including those that were done with radiological guidance. All aspirations have yielded little fluid or have not demonstrated any infection according to her. She reports that the last aspiration was still painful and she is refusing further aspiration. At this point in time, I do not think that a septic joint is likely to be high on the differential as she has been aspirated over 6 times. She has kycw-oc-husu arthritis and I do think this is the likely source of the pain. - Recommend Toradol IV - If further concern for a septic joint exists we can try a ultrasound-guided aspiration although the patient has now been aspirated 6 times and will likely refuse it.
--- NOTE | 2025-02-28 10:52 | XR_ITS ---
CLINICAL INDICATION: sepsis of unknown origin TECHNIQUE: XR chest 1V Study date and time: 02/28/2025, 11:21 a.m. COMPARISON: Chest radiograph 12/05/2024. CTA chest 11/27/2024 FINDINGS: The cardiomediastinal silhouette is within normal limits for portable technique. Hypoventilatory changes noted. Redemonstration of coarse fibrotic lung markings with upper lobe predominance. No findings suggestive of acute airspace disease; no consolidative pneumonia. No mass. No pleural effusion or pneumothorax. No acute osseous abnormality detected. Redemonstration of multiple chronic healed bilateral rib fractures, right side greater than left. IMPRESSION: No radiographic evidence for acute cardiopulmonary abnormality. Chronic ancillary findings as above. No significant interval change since the comparison studies. - This report was generated utilizing speech recognition software. -
--- NOTE | 2025-02-28 11:04 | CHAP ---
Visited with patient giving encouragement and prayer. Also prayed for her upcoming procedure.
[2025-02-28 11:50] LABS: Collection Type, Urine Catheter
[2025-02-28 11:57] LABS: Bacteria,Urine Rare; Bilirubin,Urine Negative (Negative); Blood,Urine Trace (Negative); Clarity,Urine Clear (Clear/Hazy); Color,Urine Yellow (Lt Yel-Yel); Culture Indicated,Urine Not Indicated; Glucose, Urine Negative (Negative); Ketones,Urine Negative (Negative); Leukocyte Esterase,Urine Negative (Negative); Nitrite,Urine Negative (Negative); PH,Urine 6.5 (5.0-7.0); Protein,Urine Negative (Neg - Trace); RBC,Urine 25 /hpf (0-3); Specific Gravity,Urine 1.020 (1.001-1.035); Squamous Epithelial Cell,Urine 1 /hpf (0-5); Urobilinogen,Urine 4.0 mg/dL (0.0-1.0); WBC,Urine 1 /hpf (0-5)
[2025-02-28 12:37] LABS: HCG Qualitative,Urine Negative
[2025-02-28] MEDS: ESCITALOPRAM OXALATE 10 MG TABLET PO (15:49)
[2025-02-28] MEDS: GABAPENTIN 300 MG CAPSULE 600 MG PO ×2 (15:49→21:45)
--- NOTE | 2025-02-28 16:32 | ESPR_ITS ---
Subjective Subjective Interval history: admitted for knee process so ok to leave on all rx titer from d likely not available till next week but I will see wednesday too Exam Vital Signs Temp Pulse Resp BP Pulse Ox O2 Del Method 97.7 F 81 16 154/96 H 93 L Room Air 02/28/25 14:45 02/28/25 14:45 02/28/25 14:45 02/28/25 14:45 02/28/25 14:45 02/28/25 14:45 Objective - Internal Medicine Labs 02/28/25 04:35 02/28/25 04:35 Labs: Laboratory Results - last 24 hr 02/27/25 02/28/25 02/28/25 20:29 04:35 11:40 WBC 6.6 6.2 RBC 4.31 3.98 L Hgb 11.6 L 11.0 L Hct 36.5 34.1 L MCV 85 86 MCH 26.9 27.6 MCHC 31.8 32.3 RDW Std Deviation 45.4 47.0 H Plt Count 167 D 147 Neut % (Auto) 74 73 Lymph % (Auto) 15 15 [place] % (Auto) 10 11 Eos % (Auto) 0 0 Baso % (Auto) 0 0 Neut # (Auto) 4.9 4.5 Lymph # (Auto) 1.0 0.9 L [place] # (Auto) 0.7 0.7 Eos # (Auto) 0.0 0.0 Baso # (Auto) 0.0 0.0 Immature Gran # (Auto) 0.03 H 0.02 H Absolute Nucleated RBC 0.00 0.00 Immature Gran % 1 H 0 Nucleated RBC % 0 0 ESR 99 H Sodium 137 139 Potassium 3.9 3.4 D Chloride 100 101 Carbon Dioxide 27.6 29.3 Anion Gap 9 9 BUN 12 8 L Creatinine 0.6 0.5 L Estim Creat Clear Calc 126.6 149.7 eGFR > 60 > 60 BUN/Creatinine Ratio 20 16 Glucose 91 95 Calculated Osmolality 273 L 275 Lactic Acid 0.5 Calcium 9.2 9.0 Corrected Calcium 9.2 9.1 Phosphorus 4.0 Magnesium 2.0 Total Bilirubin 0.4 0.5 AST 62 H 46 H ALT 49 36 Alkaline Phosphatase 130 H 108 D C-Reactive Prot, Quant 7.8 H Total Protein 7.9 7.1 Albumin 4.4 3.9 D Globulin 3.5 3.2 Albumin/Globulin Ratio 1.3 1.2 Procalcitonin 0.13 Ur Collection Type Catheter Urine Color Yellow Urine Clarity Clear Urine pH 6.5 Ur Specific [place] 1.020 Urine Protein Negative Urine Glucose (UA) Negative Urine Ketones Negative Urine Blood Trace Urine Nitrite Negative Urine Bilirubin Negative Urine Urobilinogen (Auto) 4.0 Ur Leukocyte Esterase Negative Urine RBC 25 H Urine WBC 1 Ur Squamous Epith Cells 1 Urine Bacteria Rare Ur Culture Indicated? Not Indicated Urine HCG, Qual Negative Assessment & Plan A&P Narrative pos cocci in pt with neg cxr and knee issue as noted. methadone dependence idu hx added some serologies. will see wednesday and added flucon empirically. po Time Spent With Patient Time: Total time spent is greater than 50% in coordination of care (as documented) at patient's floor/unit and/or counseling patient:
[2025-02-28] MEDS: ACETAMINOPHEN 325 MG TABLET 650 MG PO (16:58)
--- NOTE | 2025-02-28 18:10 | ESOP_ITS ---
<Statement entered by Edil Garcia MD - 03/01/25 21:59> Attending Attestation: I was present for entire procedure. No immediate complications. Minimal blood loss. Patient tolerated procedure well. PROCEDURES: Procedure Date / Time 02/28/25 1510 Procedural Time Out Time out performed: yes Procedure Narrative Procedure Narrative: The patient was placed in the supine position. The right groin was prepped and draped in the usual sterile fashion using chlorhexidine. Local anesthesia was achieved with 1% lidocaine. Using anatomical landmarks, the right femoral vein was cannulated with good venous blood return. A guidewire was advanced , and its position was confirmed by free venous blood flow. A small skin incision was made, and the dilator was used to enlarge the tract. A triple lumen catheter was then advanced over the guidewire to the appropriate depth and secured in place with silk suture. All three ports were aspirated and flushed easily with sterile saline. The catheter was dressed with a sterile occlusive dressing. This procedure was supervised by my attending Dr. Garcia. Lurdes Orellana MD PGY1 Central Line Placement Right Femoral: Indication(s): poor, or inadequate peripheral venous access Informed consent obtained: from patient Time out done, and the following verified: correct patient, side and site, procedure, patient position and implants and/or equipment Patient placed on monitor/pulse ox: Yes Hand Hygiene: soap & water Max Sterile Barrier Techniques used: cap, mask, sterile gown, sterile gloves and sterile full body drape Central line prep: Chlorhexidine scrub and sterile drapes applied Local anesthesia used: lidocaine 1% Amount of anesthesia used (mL): 5 Ultrasound used for placement: No Sterile Technique if Ultrasound used, including sterile gel: n/a Central line lumen inserted: triple Post procedure: sutured in place, good blood return, all ports aspirated, flushed, capped and sterile dressing applied Patient tolerated procedure: well and no complications EBL(ml): 5 Complications: none
--- NOTE | 2025-02-28 19:20 | ESCONSULT_ITS ---
RE: BEAR AG : 1975 DATE OF CONSULTATION: 02/28/2025 REFERRING PHYSICIAN: hospitalist team REASON FOR CONSULTATION: Left knee infection in a patient with a history of Valley fever. 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 She is now in her 50s, so that seems like a long time ago, but her test is positive, so we are going to put her on some fluconazole empirically. She is also on some other antibiotics empirically as well. She has a history of homelessness and states she had a headache and was immobile since late September. She has not been walking since that time. She is 7, para 6, with six live births. She has had one and her last child was born by . PAST SURGICAL HISTORY: Prior surgeries include other than the , a left knee surgery this admission, cholecystectomy in the , and some sort of cyst on the left side of the abdomen in the past. ALLERGIES: NONE KNOWN. IMMUNIZATIONS: Last tetanus is less than 10 years, date uncertain. She does not have a flu shot every year. She has not had a COVID vaccine and not had a pneumococcal vaccination. FAMILY HISTORY: Positive for cancer, diabetes and hypertension. SOCIAL HISTORY: She is homeless. She was living with her brother in [place], when she became ill a couple of months ago. The duration of her illness suggests Valley fever, but it is unclear if she kept her followup at [facility]. We will try to obtain her labs later. I will call TORO Portillo likely wednesday. We will probably not have her results until next week. If the cultures are negative, it may well be Valley fever, so we went ahead and started her on fluconazole as a precaution. DT: 16:53:02 TT: 18:46:00 Ref: [id number] - TID: [id number] MTDD
[2025-02-28] MEDS: cefTRIAXone/D5w 2gm 2 GM/50 ML BAG IV (21:45)
[2025-03-01] VITALS (7 sets, daily range): BP systolic 99–147; BP diastolic 58–80; PULSE 77–100; RESP 16–95; TEMP 36.1–36.5; O2SAT 91–98
[2025-03-01] MEDS: METHADONE HCL 10 MG TABLET 140 MG PO (06:00)
[2025-03-01] MEDS: GABAPENTIN 300 MG CAPSULE 600 MG PO ×3 (06:01→21:45)
[2025-03-01 06:36] LABS: Basophils # (Auto) 0.0 Thou/mm3 (0.0-0.2); Basophils % (Auto) 0 % (0-2.5); Eosinophils # (Auto) 0.0 Thou/mm3 (0.0-0.5); Eosinophils % (Auto) 0 % (0-10); Hematocrit 31.4 % (36.0-46.0); Hemoglobin 10.2 g/dL (12.0-16.0); Immature Granulocytes Auto 0.01 Thou/mm3 (0.00-0.00); Lymphocytes # (Auto) 0.8 Thou/mm3 (1.0-4.8); Lymphocytes % (Auto) 17 % (10-50); Mean Corpuscular HGB Conc 32.5 g/dl (31.0-37.0); Mean Corpuscular Hemoglobin 27.6 pg (25.0-35.0); Mean Corpuscular Volume 85 fL (80-100); Monocytes # (Auto) 0.6 Thou/mm3 (0.0-0.8); Monocytes % (Auto) 12 % (0-12); Neutrophils # (Auto) 3.4 Thou/mm3 (1.8-7.7); Neutrophils % (Auto) 71 % (37-80); Nucleated Red Blood Cell # 0.00 Thou/mm3 (0.00-0.00); Nucleated Red Blood Cell % 0 /100 WBC (0); Platelet Count 135 Thou/mm3 (140-440); RDW Standard Deviation 47.4 fL (36.4-46.3); Red Blood Count 3.69 Miln/mm3 (4.00-5.20); White Blood Count 4.9 Thou/mm3 (3.6-11.0)
[2025-03-01 06:52] LABS: INR 1.1 (0.9-1.3); Partial Thromboplastin Time 30.1 Seconds (22.0-36.0); Prothrombin Time 11.9 Seconds (9.0-12.2)
[2025-03-01 06:53] LABS: Alanine Aminotransferase 32 U/L (10-49); Albumin, Serum 3.3 gm/dL (3.5-5.0); Albumin/Globulin Ratio 1.1 (1.2-2.2); Alkaline Phosphatase 103 U/L (46-116); Anion Gap 7 (7-16); Aspartate Amino Transferase 34 U/L (0-34); BUN/Creatinine Ratio 23 Ratio (12-20); Bilirubin,Total 0.3 mg/dL (0.3-1.2); Blood Urea Nitrogen 9 mg/dL (9-23); Calcium 8.1 mg/dL (8.3-10.6); Calcium (Corrected) 8.7 mg/dL (8.5-10.1); Carbon Dioxide 29.1 mMol/L (20.0-31.0); Chloride 103 mMol/L (98-107); Creatinine (Component) 0.4 mg/dL (0.6-1.3); Estimated Creatinine Clearance 187.2 mL/min (>60); Globulin 2.9 gm/dL (2.3-3.5); Glucose 96 mg/dL (74-106); Magnesium 1.9 mg/dL (1.6-2.6); Osmolality,Calculated 276 (275-295); Phosphorous 3.7 mg/dL (2.4-5.1); Potassium 3.7 mMol/L (3.4-5.1); Sodium 139 mMol/L (136-145); Total Protein 6.2 gm/dL (5.7-8.2); Vancomycin,Trough 15.3 mcg/mL (5.0-10.0); eGFR > 60 See Note
--- NOTE | 2025-03-01 07:11 | PC.NURSE ---
titao not hanged @0600 d/t vanco trough not resulted yet
[2025-03-01 07:26] LABS: Hepatitis C Antibody Reactive (Non React)
--- NOTE | 2025-03-01 07:37 | ESPR_ITS ---
<Statement entered by Nuno Subramanian MD - 03/02/25 07:29> Pt is seen at bedside, due to poor IV access, right femoral line was placed yesterday. Will continue IV abx, senovial fluid grew GPC, will await speciation. Pt continues to be in pain in the left knee. MRI show osteomyletitis, ID is on board and have to start flucanazole due to suspicion of cocci. Will order repeat cocci with IgG. no plans for surgery just. Patient was seen and examined by me personally. I have directly supervised and reviewed documentation by the team resident and agree with its findings. ------- Plan of care was discussed with the attending, Dr. Nikki Subramanian, PGY-2 Documentation for date of: 03/01/25 Subjective Subjective Interval history: Central line was placed yesterday in the right fem. succesfsully pt remains afebrile and pain has been better controlled overnight. pending blood cultures, however no growth to date pending consult update from Dr. Ruiz reguarding osteomyelitis. L knee aspirate growing gpc (possible contaminant ) Exam Vital Signs Temp Pulse Resp BP Pulse Ox O2 Del Method 97.4 F 80 18 99/58 L 91 L Room Air 03/01/25 04:00 03/01/25 04:00 03/01/25 04:00 03/01/25 04:00 03/01/25 04:00 02/28/25 16:40 Narrative Exam GENERAL APPEARANCE: AOx3. NAD, activity normal for age, well developed/ well nourished, no cyanosis, pallor, or diaphoresis. more comfortable and less agitated. HEENT: Normocephalic atraumatic, no facial trauma, poor dentition CARDIAC: Regular rate and rhythm, S1+S2 heard. No murmurs, rubs, or gallops noted, diminished pedal pulses, RESPIRATORY: respiratory effort normal, speaks in full sentences, no tripod position, no accessory muscle use. Lungs clear to auscultation without rhonchi, wheezes, rales ABDOMINAL: NBS. Soft, ND/NT. No evidence of fluid wave. No pulsatile masses on exam, rebound tenderness, MUSCLES/EXTREMITIES: Chronic venous stasis bilaterally - malave bronzing and violacious. trace pedal edema. L knee less swollen compared to prior , unable to stand on it, unable to bend to 90 degrees DERM: Warm, pink and dry. No rashes, dermatoses, petechiae or lesions. NEUROLOGICAL: Speech is clear and appropriate. Normal level of consciousness. Gait not assessed (she uses wheelchair at baseline). PSYCH: Normal mood and affect. Judgement/competence is appropriate Objective Labs 03/02/25 05:43 03/02/25 05:43 Labs: Laboratory Results - last 24 hr 02/28/25 03/01/25 11:40 05:20 WBC 4.9 RBC 3.69 L Hgb 10.2 L Hct 31.4 L MCV 85 MCH 27.6 MCHC 32.5 RDW Std Deviation 47.4 H Plt Count 135 L Neut % (Auto) 71 Lymph % (Auto) 17 [place] % (Auto) 12 Eos % (Auto) 0 Baso % (Auto) 0 Neut # (Auto) 3.4 Lymph # (Auto) 0.8 L [place] # (Auto) 0.6 Eos # (Auto) 0.0 Baso # (Auto) 0.0 Immature Gran # (Auto) 0.01 H Absolute Nucleated RBC 0.00 Immature Gran % 0 Nucleated RBC % 0 PT 11.9 INR 1.1 APTT 30.1 Sodium 139 Potassium 3.7 Chloride 103 Carbon Dioxide 29.1 Anion Gap 7 BUN 9 Creatinine 0.4 L Estim Creat Clear Calc 187.2 eGFR > 60 BUN/Creatinine Ratio 23 H Glucose 96 Calculated Osmolality 276 Calcium 8.1 L Corrected Calcium 8.7 Phosphorus 3.7 Magnesium 1.9 Total Bilirubin 0.3 AST 34 ALT 32 Alkaline Phosphatase 103 Total Protein 6.2 Albumin 3.3 L D Globulin 2.9 Albumin/Globulin Ratio 1.1 L Ur Collection Type Catheter Urine Color Yellow Urine Clarity Clear Urine pH 6.5 Ur Specific [place] 1.020 Urine Protein Negative Urine Glucose (UA) Negative Urine Ketones Negative Urine Blood Trace Urine Nitrite Negative Urine Bilirubin Negative Urine Urobilinogen (Auto) 4.0 Ur Leukocyte Esterase Negative Urine RBC 25 H Urine WBC 1 Ur Squamous Epith Cells 1 Urine Bacteria Rare Ur Culture Indicated? Not Indicated Urine HCG, Qual Negative Vancomycin Trough 15.3 H Hepatitis C Antibody Reactive A Quality Measures Quality Measures VTE prophylaxis Assessment & Plan Assessment Current Active Medications: Generic Name Dose Route Start Last Admin Trade Name Freq PRN Reason Stop Dose Admin Acetaminophen 650 mg 02/28/25 02:15 11/05/25 16:58 Acetaminophen 325 Mg Tablet PO 03/30/25 02:14 650 mg Q6H PRN Administration Fever >100.4 or pain 1-3 Docusate Sodium 100 mg 02/28/25 09:00 02/28/25 10:51 Docusate Sod 100 Mg Capsule PO 03/30/25 08:59 100 mg QDAY YVES Administration Protocol Escitalopram Oxalate 10 mg 02/28/25 15:30 02/28/25 15:49 Escitalopram Oxalate 10 Mg Tablet PO 03/30/25 15:29 10 mg QDAY YVES Administration Fluconazole 400 mg 03/01/25 09:00 Fluconazole 100 Mg Tablet PO 06/01/25 12:00 QDAY YVES Gabapentin 600 mg 02/28/25 15:30 03/01/25 06:01 Gabapentin 300 Mg Capsule PO 03/30/25 15:29 600 mg TID YVES Administration Ceftriaxone Sodium/Dextrose 2 gm in 50 mls @ 100 mls/hr 02/28/25 21:00 02/28/25 21:45 Rocephin/D5w 2gm IV 03/07/25 20:59 100 mls/hr 2100 YVES Administration Vancomycin HCl/Dextrose 250 mls @ 120 mls/hr 02/28/25 06:45 02/28/25 21:45 Vancomycin/D5w 1,250 Mg Ivpb IV 03/07/25 06:44 120 mls/hr Q8HR YVES Administration Protocol Methadone HCl 140 mg 02/28/25 08:30 03/01/25 06:00 Methadone Hcl 10 Mg Tablet PO 03/05/25 08:29 140 mg 0600 YVES Administration Protocol Morphine Sulfate 2 mg 02/28/25 02:21 02/28/25 22:02 Morphine Sulf Inj 4 Mg/Ml Vial IVP 03/05/25 02:20 2 mg Q4HR PRN Administration PAIN SCALE 7-10 (Severe Olanzapine 5 mg 02/28/25 21:00 02/28/25 21:45 Olanzapine 5 Mg Tablet PO 03/30/25 20:59 5 mg HS YVES Administration Ondansetron HCl 4 mg 02/28/25 02:15 Ondansetron Inj 2 Mg/Ml Inj 2 Ml IVP 03/30/25 02:14 Q6H PRN NAUSEA OR VOMITING Protocol Pantoprazole Sodium 40 mg 02/28/25 09:00 02/28/25 10:52 Pantoprazole Inj 40 Mg Vial IVP 03/30/25 08:59 40 mg QDAY YVES Administration Pharmacy Consult 1 each 02/28/25 09:00 Vancomycin Pharmacy To Dose 1 Each Each IV 03/30/25 08:59 QDAY PRN PROTOCOL Quetiapine Fumarate 50 mg 02/28/25 21:00 02/28/25 21:45 Quetiapine Fumarate 25 Mg Tablet PO 03/30/25 20:59 50 mg HS YVES Administration Plan Ms. 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 Chand report)presents to the ED for a chief complaint of left knee pain and swelling since last night and sepsis, per discussion with Dr. Chand, he has low level of suspicion for septic arthritis. s/p central line placement for access on the . vss are stable, not actively spiking fevers while on vanc. ID consulted given osteo findings of left anterior tibia. continues on vanc. #Osteomyelitis of L ant tib #c/f Septic arthritis- ruled out #Hx of tricompartment arthirits s/p aspiration: 5mL fluid, patient still feeling pain with passive extension of knee. Difficult to assess true pain due to incredibly labile responses and obvious meth high. CRP 7.8, ESR 99. Knee XR showed advance tricompartment osteoarthirits with erosive change involving the lateral joint space. Tib/fib XR suspiscious for osteomyelitis involving the TBI L Knee MRI w/o contrast with findings are consistent with osteomyelitis involving the anterior cortex of the tibia, recommend this patient return for MRI tibia-fibula images post intravenous contrast Blood cx NGTD @ 24 hrs. Plan: -Vanc (02/28- -Ceftriaxone 2g QD (02/28-03/01) -Zosyn 3.375 x1 (02/28) -Tylenol IV pain control -Morphine 2mg IVP Q4HR PRN -UA keira -Ortho Dr. Chand consulted, appreciate recs -ID consulted, Dr. Ruiz, appreciate recs. -follow up arthrocentesis fluid cultures, prelim growing GPC #PSUD - on methadone #Active Meth use #Hx of opioid Use disorder #Agitation UDS not done in ED, no point in checking now that she has received pain management. And admitted to meth use. 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 Labs from [facility] demonstrate cocci IgM and IgG negative Plan: - Fluconazole 400 mg po qd started by Dr. Ruiz, ID Electrolyte abnormalities - repleate as indicated - please give PO meds with sips of water. - central line placed Health Maintenance: Code status: Full DVT prophylaxis: SCDs GI prophylaxis: protonix Diet: mechanical alteration Mauricio: Yes Lines: PIV 20 gauge in R pinky finger and R fem central line Supplemental O2: None Disposition: Med surg for concerns for osteomyelitis of L anterior tibia Plan discussed with my attending Dr. Jordan and my senior resident Dr. Dao Orellana MD PGY1 Attending Provider Attestation/Addendum I, Meg Jordan, DO, attest that I was physically present for the giordano portions of the service and evaluated the patient with the resident and I reviewed and discussed the case with the resident and agree with the resident's findings and plans of care as documented above Patient seen and eval this a.m. Patient is much more comfortable at this time. Central line was placed last night. Patient tolerated procedure well. MRI had been done showing osteomyelitis of the anterior cortex of the tibia. Left knee appears less edematous today. Synovial fluid is growing GPC at this time. There was not enough synovial fluid for fluid studies otherwise. Will follow-up with blood cultures that appear to have no growth to date. Patient reports no pain if she does not move. Given her history of drug use, this may pose as a barrier for long-term antibiotics if IV meds are required for long-term antibiotics.
[2025-03-01] MEDS: DOCUSATE SOD 100 MG CAPSULE PO (08:08)
[2025-03-01] MEDS: FLUCONAZOLE 100 MG TABLET 400 MG PO (08:09)
[2025-03-01] MEDS: ESCITALOPRAM OXALATE 10 MG TABLET PO (08:09)
[2025-03-01 08:39] LABS: HIV (1&2) Antibody Rapid Non-Reactive
[2025-03-01 12:47] LABS: Cocci Serology, IgM Positive (Negative)
[2025-03-01 12:48] LABS: Cocid Sro, CF/ID (UCD) NO CHG* See Sep Rpt
[2025-03-01] MEDS: VANCOMYCIN/D5W 1,250 MG IVPB 250 ML 120 MG IV ×2 (15:16→21:41)
[2025-03-01] MEDS: MORPHINE SULF INJ 4 MG/ML VIAL 2 MG IVP ×2 (15:26→19:33)
[2025-03-01] MEDS: cefTRIAXone/D5w 2gm 2 GM/50 ML BAG IV (20:22)
[2025-03-02] VITALS (16 sets, daily range): BP systolic 113–157; BP diastolic 74–114; PULSE 71–90; RESP 14–97; TEMP 36.1–36.7; O2SAT 92–100
[2025-03-02] MEDS: VANCOMYCIN/D5W 1,250 MG IVPB 250 ML 120 MG IV (05:40)
[2025-03-02] MEDS: GABAPENTIN 300 MG CAPSULE 600 MG PO ×2 (05:41→21:23)
[2025-03-02] MEDS: METHADONE HCL 10 MG TABLET 140 MG PO (05:42)
[2025-03-02 06:06] LABS: Basophils # (Auto) 0.0 Thou/mm3 (0.0-0.2); Basophils % (Auto) 0 % (0-2.5); Eosinophils # (Auto) 0.0 Thou/mm3 (0.0-0.5); Eosinophils % (Auto) 0 % (0-10); Hematocrit 32.5 % (36.0-46.0); Hemoglobin 10.2 g/dL (12.0-16.0); Immature Granulocytes Auto 0.01 Thou/mm3 (0.00-0.00); Lymphocytes # (Auto) 1.1 Thou/mm3 (1.0-4.8); Lymphocytes % (Auto) 24 % (10-50); Mean Corpuscular HGB Conc 31.4 g/dl (31.0-37.0); Mean Corpuscular Hemoglobin 27.2 pg (25.0-35.0); Mean Corpuscular Volume 87 fL (80-100); Monocytes # (Auto) 0.6 Thou/mm3 (0.0-0.8); Monocytes % (Auto) 12 % (0-12); Neutrophils # (Auto) 3.1 Thou/mm3 (1.8-7.7); Neutrophils % (Auto) 64 % (37-80); Nucleated Red Blood Cell # 0.00 Thou/mm3 (0.00-0.00); Nucleated Red Blood Cell % 0 /100 WBC (0); Platelet Count 155 Thou/mm3 (140-440); RDW Standard Deviation 48.8 fL (36.4-46.3); Red Blood Count 3.75 Miln/mm3 (4.00-5.20); White Blood Count 4.8 Thou/mm3 (3.6-11.0)
[2025-03-02 06:23] LABS: Alanine Aminotransferase 26 U/L (10-49); Albumin, Serum 3.6 gm/dL (3.5-5.0); Albumin/Globulin Ratio 1.0 (1.2-2.2); Alkaline Phosphatase 107 U/L (46-116); Anion Gap 7 (7-16); Aspartate Amino Transferase 26 U/L (0-34); BUN/Creatinine Ratio 13 Ratio (12-20); Bilirubin,Total 0.2 mg/dL (0.3-1.2); Blood Urea Nitrogen 5 mg/dL (9-23); Calcium 8.8 mg/dL (8.3-10.6); Calcium (Corrected) 9.1 mg/dL (8.5-10.1); Carbon Dioxide 29.9 mMol/L (20.0-31.0); Chloride 102 mMol/L (98-107); Creatinine (Component) 0.4 mg/dL (0.6-1.3); Estimated Creatinine Clearance 187.2 mL/min (>60); Globulin 3.5 gm/dL (2.3-3.5); Glucose 88 mg/dL (74-106); Magnesium 2.0 mg/dL (1.6-2.6); Osmolality,Calculated 273 (275-295); Phosphorous 4.1 mg/dL (2.4-5.1); Potassium 4.0 mMol/L (3.4-5.1); Sodium 139 mMol/L (136-145); Total Protein 7.1 gm/dL (5.7-8.2); eGFR > 60 See Note
--- NOTE | 2025-03-02 07:48 | ESPR_ITS ---
<Statement entered by Nuno Subramanian MD - 03/02/25 15:36> pt is seen at bedside. Pt endorses to significant improvement in pain, however there is still edema noted in the left knee. Blood culture grew MSSA, Per ID recommendation pt will need IV antibitoics with rocephin for 4 weeks until March 28 2025. Pt will need to go to acute rehab for IV abx through PICC line. will also add doxy for 4 weeks, will order PT. Will order IR to drainage the knee to collect synovial fluid for analysis. will order PICC line and send acute rehab authorization. Patient was seen and examined by me personally. I have directly supervised and reviewed documentation by the team resident and agree with its findings. ------- Plan of care was discussed with the attending, Dr. Nikki Subramanian, PGY-2 Documentation for date of: 03/02/25 Subjective Subjective Interval history: Per Dr. Ruiz: recommending IV Ceftriaxone 2 grams for 4 weeks with end date on 03/28 pt has hx of IV drug use and recent meth use. PICC line placement pending today will continue on 4 weeks of ctx and doxy. d/c vanc given L knee aspirate growing MSSA, per discussion with Dr. Chand, get IR joint aspiration of L knee refer to physical therapy Exam Vital Signs Temp Pulse Resp BP Pulse Ox O2 Del Method 96.9 F 71 19 114/74 93 L Room Air 03/02/25 04:00 03/02/25 04:00 03/02/25 04:00 03/02/25 04:00 03/02/25 04:00 03/02/25 04:00 Narrative Exam GENERAL APPEARANCE: AOx3. NAD, activity normal for age, well developed/ well nourished, no cyanosis, pallor, or diaphoresis. HEENT: Normocephalic atraumatic, no facial trauma, poor dentition CARDIAC: Regular rate and rhythm, S1+S2 heard. No murmurs, rubs, or gallops noted, diminished pedal pulses, RESPIRATORY: respiratory effort normal, speaks in full sentences, no tripod position, no accessory muscle use. Lungs clear to auscultation without rhonchi, wheezes, rales ABDOMINAL: NBS. Soft, ND/NT. No evidence of fluid wave. No pulsatile masses on exam, rebound tenderness, MUSCLES/EXTREMITIES: Chronic venous stasis bilaterally - malave bronzing and violacious. trace pedal edema. L knee less swollen compared to prior , unable to stand on it, unable to bend to 90 degrees DERM: Warm, pink and dry. No rashes, dermatoses, petechiae or lesions. NEUROLOGICAL: Speech is clear and appropriate. Normal level of consciousness. Gait not assessed (she uses wheelchair at baseline). PSYCH: Normal mood and affect. Judgement/competence is appropriate Objective Labs 03/02/25 05:43 03/02/25 05:43 Labs: Laboratory Results - last 24 hr 03/01/25 03/01/25 03/02/25 05:20 05:52 05:43 WBC 4.8 RBC 3.75 L Hgb 10.2 L Hct 32.5 L MCV 87 MCH 27.2 MCHC 31.4 RDW Std Deviation 48.8 H Plt Count 155 Neut % (Auto) 64 Lymph % (Auto) 24 [place] % (Auto) 12 Eos % (Auto) 0 Baso % (Auto) 0 Neut # (Auto) 3.1 Lymph # (Auto) 1.1 [place] # (Auto) 0.6 Eos # (Auto) 0.0 Baso # (Auto) 0.0 Immature Gran # (Auto) 0.01 H Absolute Nucleated RBC 0.00 Immature Gran % 0 Nucleated RBC % 0 Sodium 139 Potassium 4.0 Chloride 102 Carbon Dioxide 29.9 Anion Gap 7 BUN 5 L Creatinine 0.4 L Estim Creat Clear Calc 187.2 eGFR > 60 BUN/Creatinine Ratio 13 Glucose 88 Calculated Osmolality 273 L Calcium 8.8 Corrected Calcium 9.1 Phosphorus 4.1 Magnesium 2.0 Total Bilirubin 0.2 L AST 26 ALT 26 Alkaline Phosphatase 107 Total Protein 7.1 Albumin 3.6 Globulin 3.5 Albumin/Globulin Ratio 1.0 L Coccidioides IgG Ab Not Performed. Coccidioides IgM Ab Positive A HIV 1&2 Antibody Rapid Non-Reactive Quality Measures Quality Measures VTE prophylaxis Assessment & Plan Assessment Current Active Medications: Generic Name Dose Route Start Last Admin Trade Name Freq PRN Reason Stop Dose Admin Acetaminophen 650 mg 02/28/25 02:15 02/28/25 16:58 Acetaminophen 325 Mg Tablet PO 03/30/25 02:14 650 mg Q6H PRN Administration Fever >100.4 or pain 1-3 Docusate Sodium 100 mg 02/28/25 09:00 03/01/25 08:08 Docusate Sod 100 Mg Capsule PO 03/30/25 08:59 100 mg QDAY YVES Administration Protocol Escitalopram Oxalate 10 mg 02/28/25 15:30 03/01/25 08:09 Escitalopram Oxalate 10 Mg Tablet PO 03/30/25 15:29 10 mg QDAY YVES Administration Fluconazole 400 mg 03/01/25 09:00 03/01/25 08:09 Fluconazole 100 Mg Tablet PO 06/01/25 12:00 400 mg QDAY YVES Administration Gabapentin 600 mg 02/28/25 15:30 03/02/25 05:41 Gabapentin 300 Mg Capsule PO 03/30/25 15:29 600 mg TID YVES Administration Ceftriaxone Sodium/Dextrose 2 gm in 50 mls @ 100 mls/hr 02/28/25 21:00 03/01/25 20:22 Rocephin/D5w 2gm IV 03/07/25 20:59 100 mls/hr 2100 YVES Administration Vancomycin HCl/Dextrose 250 mls @ 120 mls/hr 02/28/25 06:45 03/02/25 05:40 Vancomycin/D5w 1,250 Mg Ivpb IV 03/07/25 06:44 120 mls/hr Q8HR YVES Administration Protocol Methadone HCl 140 mg 02/28/25 08:30 03/02/25 05:42 Methadone Hcl 10 Mg Tablet PO 03/05/25 08:29 140 mg 0600 YVES Administration Protocol Morphine Sulfate 2 mg 02/28/25 02:21 03/01/25 19:33 Morphine Sulf Inj 4 Mg/Ml Vial IVP 03/05/25 02:20 2 mg Q4HR PRN Administration PAIN SCALE 7-10 (Severe Olanzapine 5 mg 02/28/25 21:00 03/01/25 20:26 Olanzapine 5 Mg Tablet PO 03/30/25 20:59 5 mg HS YVES Administration Ondansetron HCl 4 mg 02/28/25 02:15 Ondansetron Inj 2 Mg/Ml Inj 2 Ml IVP 03/30/25 02:14 Q6H PRN NAUSEA OR VOMITING Protocol Pantoprazole Sodium 40 mg 02/28/25 09:00 03/01/25 08:09 Pantoprazole Inj 40 Mg Vial IVP 03/30/25 08:59 40 mg QDAY YVES Administration Pharmacy Consult 1 each 02/28/25 09:00 Vancomycin Pharmacy To Dose 1 Each Each IV 03/30/25 08:59 QDAY PRN PROTOCOL Quetiapine Fumarate 50 mg 02/28/25 21:00 03/01/25 20:26 Quetiapine Fumarate 25 Mg Tablet PO 03/30/25 20:59 50 mg HS [facility] Administration Plan Ms. 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 Chand report)presents to the ED for a chief complaint of left knee pain and swelling since last night and sepsis, per discussion with Dr. Chand, he has low level of suspicion for septic arthritis. s/p central line placement for access on the . vss are stable, not actively spiking fevers while on vanc. ID consulted given osteo findings of left anterior tibia. on vanc and ctx. #Osteomyelitis of L ant tib #c/f Septic arthritis- ruled out #Hx of tricompartment arthirits s/p aspiration: 5mL fluid, patient still feeling pain with passive extension of knee. Difficult to assess true pain due to incredibly labile responses and obvious meth high. CRP 7.8, ESR 99. Knee XR showed advance tricompartment osteoarthirits with erosive change involving the lateral joint space. Tib/fib XR suspiscious for osteomyelitis involving the TBI L Knee MRI w/o contrast with findings are consistent with osteomyelitis involving the anterior cortex of the tibia, recommend this patient return for MRI tibia-fibula images post intravenous contrast Blood cx NGTD @ 48 hrs. L knee aspiration culture with Staph A Plan: -pending picc line placement -arthrocentesis fluid cultures, growing Staph A. -pending IR aspiration of L knee, possible washout with Dr. Chand if cultures + -Ceftriaxone 2g QD (02/28- )intended end date 03/28 per ID recs given c/f osteo -Doxycycline 100 mg BID (03/03- ) intended end date 03/28 -Vanc (02/28-03/02) -Zosyn 3.375 x1 (02/28) -Tylenol IV pain control -Morphine 2mg IVP Q4HR PRN -Ortho Dr. Chand consulted, appreciate recs -ID consulted, Dr. Ruiz, appreciate recs. -PT consulted. #PSUD - on methadone #Active Meth use #Hx of opioid Use disorder #Agitation UDS not done in ED, no point in checking now that she has received pain management. And admitted to meth use. 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 Labs from [facility] demonstrate cocci IgM and IgG negative IgM positive, IgG not performed Plan: - cont Fluconazole 400 mg po qd Electrolyte abnormalities - repleate as indicated - please give PO meds with sips of water. - central line placed Health Maintenance: Code status: Full DVT prophylaxis: SCDs GI prophylaxis: protonix Diet: mechanical alteration Mauricio: Yes Lines: PIV 20 gauge in R pinky finger and R fem central line Supplemental O2: None Disposition: Med surg for concerns for osteomyelitis of L anterior tibia, on vanc and ctx, and fluconazole , blood cx negative, L knee culture with staph A, Plan discussed with my attending Dr. Jordan and my senior resident Dr. Dao Orellana MD PGY1 Attending Provider Attestation/Addendum Segun, Meg Jordan, DO, attest that I was physically present for the giordano portions of the service and evaluated the patient with the resident and I reviewed and discussed the case with the resident and agree with the resident's findings and plans of care as documented above. Patient seen and eval this a.m. She is resting comfortably. Noted to have MSSA on synovial fluid aspirate done in ED. Orthopedic surgery recommends to have IR aspiration of the knee again. If cultures are positive again, patient may need a washout by orthopedic surgery due to concern for septic arthritis. Patient does have osteomyelitis noted on MRI. However, that is not noted in ID note. ID recommends 4 weeks of Rocephin for septic arthritis given that MSSA had grown on aspirate. Cocci IgM was noted to be positive again. Will continue with fluconazole. Patient will ultimately need SNF placement for prolonged IV antibiotic administration for over [address] PICC line and plan for IR aspiration this afternoon.
[2025-03-02] MEDS: ESCITALOPRAM OXALATE 10 MG TABLET PO (08:54)
[2025-03-02] MEDS: DOCUSATE SOD 100 MG CAPSULE PO (08:54)
[2025-03-02] MEDS: FLUCONAZOLE 100 MG TABLET 400 MG PO (08:54)
[2025-03-02] MEDS: MORPHINE SULF INJ 4 MG/ML VIAL 2 MG IVP ×2 (09:03→19:13)
--- NOTE | 2025-03-02 09:27 | ESPR_ITS ---
Subjective Subjective Interval history: bc neg but may have septic arthritis. gram stain neg but cx with gpc. so ok for 4 weeks iv rocephin for septic arthritis. will check hep c vl and can do other tests if pos as 5-10% clear the virus on their own Exam Vital Signs Temp Pulse Resp BP Pulse Ox O2 Del Method 97.3 F 76 19 113/77 92 L Room Air 03/02/25 08:00 03/02/25 08:00 03/02/25 08:00 03/02/25 08:00 03/02/25 08:00 03/02/25 08:00 Narrative Exam limited eval today Objective - Internal Medicine Labs 03/02/25 05:43 03/02/25 05:43 Labs: Laboratory Results - last 24 hr 03/01/25 03/02/25 05:52 05:43 WBC 4.8 RBC 3.75 L Hgb 10.2 L Hct 32.5 L MCV 87 MCH 27.2 MCHC 31.4 RDW Std Deviation 48.8 H Plt Count 155 Neut % (Auto) 64 Lymph % (Auto) 24 [place] % (Auto) 12 Eos % (Auto) 0 Baso % (Auto) 0 Neut # (Auto) 3.1 Lymph # (Auto) 1.1 [place] # (Auto) 0.6 Eos # (Auto) 0.0 Baso # (Auto) 0.0 Immature Gran # (Auto) 0.01 H Absolute Nucleated RBC 0.00 Immature Gran % 0 Nucleated RBC % 0 Sodium 139 Potassium 4.0 Chloride 102 Carbon Dioxide 29.9 Anion Gap 7 BUN 5 L Creatinine 0.4 L Estim Creat Clear Calc 187.2 eGFR > 60 BUN/Creatinine Ratio 13 Glucose 88 Calculated Osmolality 273 L Calcium 8.8 Corrected Calcium 9.1 Phosphorus 4.1 Magnesium 2.0 Total Bilirubin 0.2 L AST 26 ALT 26 Alkaline Phosphatase 107 Total Protein 7.1 Albumin 3.6 Globulin 3.5 Albumin/Globulin Ratio 1.0 L Coccidioides IgG Ab Not Performed. Coccidioides IgM Ab Positive A Assessment & Plan A&P Narrative ox S staph in pt with neg cxr and knee issue as noted.hx of pos cocci igm yrs ago with neg cocci at send out lab methadone dependence idu hx added will see wednesday of next week if still here stopped flucon as cxr neg and staph in knee as noted and vanco as staph is ox s ok for rocephin 2 gm/day thru 03/28 po abx not expected to work, so if unable to get home, then has to stay for rx. I will be away till wednesday of coming week. will be seeing my brother in [place] who has illness. Time Spent With Patient Time: Total time spent is greater than 50% in coordination of care (as documented) at patient's floor/unit and/or counseling patient:
--- NOTE | 2025-03-02 10:22 | XR_ITS ---
EXAM: Fluoroscopic and ultrasound-guided PICC line placement. INDICATION: Infection DATE: 03/02/2025, 1:44 p.m. Fluoroscopy time: 6 minutes Dose: 8.26 mGy Procedure: After discussion of risks and benefits informed consent was obtained. Patient was brought to the IR suite and placed supine on the exam table. Preliminary ultrasound evaluation demonstrated the right brachial vein to be patent. Skin overlying the right antecubital fossa was cleaned and draped in normal sterile surgical fashion. 5 cc of 1% lidocaine was used for local anesthesia. Using ultrasound guidance access to the right brachial vein was obtained with a micropuncture needle. Using fluoroscopic guidance a 0.018 wire was advanced through the needle into the SVC. Needle was withdrawn. 6 [place] peel-away sheath was placed over the wire and the wire removed. 7 [place] dual-lumen PICC line catheter was advanced over the wire and the peel-away sheath removed. Distal catheter tip was appropriately positioned at the caval atrial junction.. Both ports flushed and aspirated easily.the catheter was secured at the skin exit site with a Sta-Fix device. There were no immediate complications. IMPRESSION: Successful right-sided tunneled central venous catheter placed as above. Catheter is ready for use.
[2025-03-02 10:37] LABS: INR 1.1 (0.9-1.3); Prothrombin Time 11.2 Seconds (9.0-12.2)
--- NOTE | 2025-03-02 14:30 | PC.PT ---
Attempt to initiate PT evaluation at 1417. Patient is at getting a PICC line. PT eval witheld.
[2025-03-02] MEDS: HEPARIN SOD LOCK SYR 100 UNIT/ML 500 UNIT STFIELD (14:31)
[2025-03-02] MEDS: LIDOCAINE INJ PF 1% 30 ML VIAL EPID (14:34)
[2025-03-02] MEDS: LIDOCAINE INJ PF 1% 30 ML VIAL 10 ML INFL (14:34)
--- NOTE | 2025-03-02 14:46 | PC.NURSE ---
HAND OFF REPORT GIVEN TO KRYSTAL HERNANDEZ DURING PROCEDURE OF PICC LINE INSERTION AT [id number]
--- NOTE | 2025-03-02 15:12 | PC.NURSE ---
Patient transferred back to room 350 post PICC line insertion. No acute distress noted. No acute changes or deviations from baseline. Bedside RN, Nieves, Provided with report. 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
--- NOTE | 2025-03-02 15:35 | PC.CC ---
PASRR Level 1 complete and downloaded. Level 2 clearance pending.
--- NOTE | 2025-03-02 15:45 | PC.SS ---
SS met with patient who is alert/oriented. Patient was able to verify demographics. Patient was admitted for sepsis. Patient states she's homeless. Patient has been staying at the [facility]. Patient can return. Patient has a history of meth use. Patient is currently on methadone and receives weekly from [facility] every . Patient will need i.v. antibiotics until March. Patient is agreeable to SNF. Patient states she's been to [facility] in the past. Patient agreeable. Patient was accepted by [facility]. Patient does not have a p.c.p. Patient will d/c to [facility] Wednesday. [facility] working on auth. PASRR pending level 2. Alt medical decision maker: Fiona Partida, daughter,
--- NOTE | 2025-03-02 16:04 | ESPR_ITS ---
Subjective Subjective Brief History: The patient is a 49-year-old female with over 1 year of left knee pain. She was told she needed a knee replacement in the past. She reports 1 day increase in pain. She is a IV drug abuser and is homeless and is not a great candidate for total knee replacement. She came into the emergency room yesterday with elevated ESR and CRP. She reports she has had severe knee pain for the last 4 months which increased in the last day. She reports that she has been aspirated 6 times in the past 6 months at [facility], and [facility] and [facility] been negative. She reports the last tap has been so painful that she does not want further taps. She has known [id number] arthritis of the lateral compartment of her left knee. She was aspirated in the ER where they found 5 cc of blood. This was sent for culture. No cell count could be obtained from this. Narrative: One of the cultures turned positive for MSSA today. We recommend reaspiration given that there was no cell count that could be obtained. Exam Vital Signs Temp Pulse Resp BP Pulse Ox O2 Del Method 98.1 F 82 18 132/76 H 95 Room Air 03/02/25 13:31 03/02/25 14:45 03/02/25 14:45 03/02/25 14:45 03/02/25 14:45 03/02/25 14:45 Objective - Ortho Labs 03/02/25 05:43 03/02/25 05:43 Labs: Laboratory Results - last 24 hr 03/02/25 05:43 WBC 4.8 RBC 3.75 L Hgb 10.2 L Hct 32.5 L MCV 87 MCH 27.2 MCHC 31.4 RDW Std Deviation 48.8 H Plt Count 155 Neut % (Auto) 64 Lymph % (Auto) 24 [place] % (Auto) 12 Eos % (Auto) 0 Baso % (Auto) 0 Neut # (Auto) 3.1 Lymph # (Auto) 1.1 [place] # (Auto) 0.6 Eos # (Auto) 0.0 Baso # (Auto) 0.0 Immature Gran # (Auto) 0.01 H Absolute Nucleated RBC 0.00 Immature Gran % 0 Nucleated RBC % 0 PT 11.2 INR 1.1 Sodium 139 Potassium 4.0 Chloride 102 Carbon Dioxide 29.9 Anion Gap 7 BUN 5 L Creatinine 0.4 L Estim Creat Clear Calc 187.2 eGFR > 60 BUN/Creatinine Ratio 13 Glucose 88 Calculated Osmolality 273 L Calcium 8.8 Corrected Calcium 9.1 Phosphorus 4.1 Magnesium 2.0 Total Bilirubin 0.2 L AST 26 ALT 26 Alkaline Phosphatase 107 Total Protein 7.1 Albumin 3.6 Globulin 3.5 Albumin/Globulin Ratio 1.0 L Assessment & Plan Diagnosis (1) Pain in left knee: Status: Acute Assessment Additional comments: Patient is a 49 yo female with left knee pain and bone on bone arthritis who has been aspirated over 6 times in the past 6 months and chronic knee pain in an IVDA. One of the cultures from the recent admission turned positive for MSSA. ID recommends treating the infection. The patient has changes consistent with osteomyelitis but it is unclear whether a septic knee is present as no cell count has been obtained. - recommend US guided aspiration sent for cell count, crystals, and diff - plan for washout if cell count high and clinical picture consistent with septic arthritis
[2025-03-02] MEDS: ALBUTEROL/IPRATROPIUM (Duoneb) RT SOL 3 ML NEBU INH (18:51)
[2025-03-02] MEDS: cefTRIAXone/D5w 2gm 2 GM/50 ML BAG IV (20:46)
[2025-03-03] VITALS (10 sets, daily range): BP systolic 126–152; BP diastolic 77–98; PULSE 72–85; RESP 16–95; TEMP 36.3–37.3; O2SAT 92–100
[2025-03-03] MEDS: ALBUTEROL/IPRATROPIUM (Duoneb) RT SOL 3 ML NEBU INH ×3 (00:51→12:30)
[2025-03-03] MEDS: METHADONE HCL 10 MG TABLET 140 MG PO (05:48)
[2025-03-03] MEDS: GABAPENTIN 300 MG CAPSULE 600 MG PO ×2 (05:48→20:53)
[2025-03-03 06:40] LABS: Basophils # (Auto) 0.0 Thou/mm3 (0.0-0.2); Basophils % (Auto) 0 % (0-2.5); Eosinophils # (Auto) 0.0 Thou/mm3 (0.0-0.5); Eosinophils % (Auto) 0 % (0-10); Hematocrit 33.9 % (36.0-46.0); Hemoglobin 10.8 g/dL (12.0-16.0); Immature Granulocytes Auto 0.01 Thou/mm3 (0.00-0.00); Lymphocytes # (Auto) 1.2 Thou/mm3 (1.0-4.8); Lymphocytes % (Auto) 27 % (10-50); Mean Corpuscular HGB Conc 31.9 g/dl (31.0-37.0); Mean Corpuscular Hemoglobin 27.5 pg (25.0-35.0); Mean Corpuscular Volume 86 fL (80-100); Monocytes # (Auto) 0.5 Thou/mm3 (0.0-0.8); Monocytes % (Auto) 12 % (0-12); Neutrophils # (Auto) 2.5 Thou/mm3 (1.8-7.7); Neutrophils % (Auto) 60 % (37-80); Nucleated Red Blood Cell # 0.00 Thou/mm3 (0.00-0.00); Nucleated Red Blood Cell % 0 /100 WBC (0); Platelet Count 153 Thou/mm3 (140-440); RDW Standard Deviation 48.7 fL (36.4-46.3); Red Blood Count 3.93 Miln/mm3 (4.00-5.20); White Blood Count 4.2 Thou/mm3 (3.6-11.0)
[2025-03-03 07:12] LABS: Alanine Aminotransferase 27 U/L (10-49); Albumin, Serum 3.9 gm/dL (3.5-5.0); Albumin/Globulin Ratio 1.1 (1.2-2.2); Alkaline Phosphatase 112 U/L (46-116); Anion Gap 8 (7-16); Aspartate Amino Transferase 31 U/L (0-34); BUN/Creatinine Ratio 16 Ratio (12-20); Bilirubin,Total 0.2 mg/dL (0.3-1.2); Blood Urea Nitrogen 8 mg/dL (9-23); Calcium 9.2 mg/dL (8.3-10.6); Calcium (Corrected) 9.3 mg/dL (8.5-10.1); Carbon Dioxide 30.0 mMol/L (20.0-31.0); Chloride 101 mMol/L (98-107); Creatinine (Component) 0.5 mg/dL (0.6-1.3); Estimated Creatinine Clearance 149.7 mL/min (>60); Globulin 3.4 gm/dL (2.3-3.5); Glucose 88 mg/dL (74-106); Magnesium 2.0 mg/dL (1.6-2.6); Osmolality,Calculated 274 (275-295); Phosphorous 4.6 mg/dL (2.4-5.1); Potassium 4.2 mMol/L (3.4-5.1); Sodium 139 mMol/L (136-145); Total Protein 7.3 gm/dL (5.7-8.2); eGFR > 60 See Note
--- NOTE | 2025-03-03 07:33 | ESPR_ITS ---
Documentation for date of: 03/03/25 Subjective Subjective Interval history: NAEO. Reports continued knee pain. US showed minimal fluid in left knee synovial space, no aspiration performed. PICC line placed for IV abx. Pending SNF placement. Exam Vital Signs Temp Pulse Resp BP Pulse Ox O2 Del Method 98 F 72 16 139/96 H 99 Room Air 03/03/25 04:00 03/03/25 06:26 03/03/25 06:26 03/03/25 04:00 03/03/25 06:26 03/03/25 04:00 Narrative Exam GENERAL APPEARANCE: AOx3. NAD, activity normal for age, well developed/ well nourished, no cyanosis, pallor, or diaphoresis. HEENT: Normocephalic atraumatic, no facial trauma, poor dentition CARDIAC: Regular rate and rhythm, S1+S2 heard. No murmurs, rubs, or gallops noted, diminished pedal pulses, RESPIRATORY: respiratory effort normal, speaks in full sentences, no tripod position, no accessory muscle use. Lungs clear to auscultation without rhonchi, wheezes, rales ABDOMINAL: NBS. Soft, ND/NT. No evidence of fluid wave. No pulsatile masses on exam, rebound tenderness, MUSCLES/EXTREMITIES: Chronic venous stasis bilaterally - malave bronzing and violacious. trace pedal edema. L knee less swollen compared to prior , unable to stand on it, unable to bend to 90 degrees DERM: Warm, pink and dry. No rashes, dermatoses, petechiae or lesions. NEUROLOGICAL: Speech is clear and appropriate. Normal level of consciousness. Gait not assessed (she uses wheelchair at baseline). PSYCH: Normal mood and affect. Judgement/competence is appropriate Objective Labs 03/03/25 05:52 03/03/25 05:52 Labs: Laboratory Results - last 24 hr 03/02/25 03/03/25 05:43 05:52 WBC 4.2 RBC 3.93 L Hgb 10.8 L Hct 33.9 L MCV 86 MCH 27.5 MCHC 31.9 RDW Std Deviation 48.7 H Plt Count 153 Neut % (Auto) 60 Lymph % (Auto) 27 [place] % (Auto) 12 Eos % (Auto) 0 Baso % (Auto) 0 Neut # (Auto) 2.5 Lymph # (Auto) 1.2 [place] # (Auto) 0.5 Eos # (Auto) 0.0 Baso # (Auto) 0.0 Immature Gran # (Auto) 0.01 H Absolute Nucleated RBC 0.00 Immature Gran % 0 Nucleated RBC % 0 PT 11.2 INR 1.1 Sodium 139 Potassium 4.2 Chloride 101 Carbon Dioxide 30.0 Anion Gap 8 BUN 8 L Creatinine 0.5 L Estim Creat Clear Calc 149.7 eGFR > 60 BUN/Creatinine Ratio 16 Glucose 88 Calculated Osmolality 274 L Calcium 9.2 Corrected Calcium 9.3 Phosphorus 4.6 Magnesium 2.0 Total Bilirubin 0.2 L AST 31 ALT 27 Alkaline Phosphatase 112 Total Protein 7.3 Albumin 3.9 Globulin 3.4 Albumin/Globulin Ratio 1.1 L Quality Measures Quality Measures VTE prophylaxis Assessment & Plan Assessment Current Active Medications: Generic Name Dose Route Start Last Admin Trade Name Freq PRN Reason Stop Dose Admin Acetaminophen 650 mg 02/28/25 02:15 02/28/25 16:58 Acetaminophen 325 Mg Tablet PO 03/30/25 02:14 650 mg Q6H PRN Administration Fever >100.4 or pain 1-3 Albuterol/Ipratropium 3 ml 03/02/25 19:00 03/03/25 06:25 Albuterol/Ipratropium (Duoneb) Rt Lorena 3 Ml Nebu INH 04/01/25 18:59 3 ml Q6HRRT YVES Administration Docusate Sodium 100 mg 02/28/25 09:00 03/02/25 08:54 Docusate Sod 100 Mg Capsule PO 03/30/25 08:59 100 mg QDAY YVES Administration Protocol Doxycycline Hyclate 100 mg 03/03/25 09:00 Doxycycline 100 Mg Tablet PO 03/28/25 08:59 BID YVES Escitalopram Oxalate 10 mg 02/28/25 15:30 03/02/25 08:54 Escitalopram Oxalate 10 Mg Tablet PO 03/30/25 15:29 10 mg QDAY YVES Administration Gabapentin 600 mg 02/28/25 15:30 03/03/25 05:48 Gabapentin 300 Mg Capsule PO 03/30/25 15:29 600 mg TID YVES Administration Ceftriaxone Sodium/Dextrose 2 gm in 50 mls @ 100 mls/hr 02/28/25 21:00 03/02/25 20:46 Rocephin/D5w 2gm IV 03/28/25 20:59 100 mls/hr 2100 YVES Administration Methadone HCl 140 mg 02/28/25 08:30 03/03/25 05:48 Methadone Hcl 10 Mg Tablet PO 03/05/25 08:29 140 mg 0600 YVES Administration Protocol Morphine Sulfate 2 mg 02/28/25 02:21 03/02/25 19:13 Morphine Sulf Inj 4 Mg/Ml Vial IVP 03/05/25 02:20 2 mg Q4HR PRN Administration PAIN SCALE 7-10 (Severe Olanzapine 5 mg 02/28/25 21:00 03/02/25 20:47 Olanzapine 5 Mg Tablet PO 03/30/25 20:59 5 mg HS YVES Administration Ondansetron HCl 4 mg 02/28/25 02:15 Ondansetron Inj 2 Mg/Ml Inj 2 Ml IVP 03/30/25 02:14 Q6H PRN NAUSEA OR VOMITING Protocol Quetiapine Fumarate 50 mg 02/28/25 21:00 03/02/25 20:54 Quetiapine Fumarate 25 Mg Tablet PO 03/30/25 20:59 50 mg HS YVES Administration Plan Ms. 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 Chand report)presents to the ED for a chief complaint of left knee pain and swelling since last night and sepsis, per discussion with Dr. Chand, he has low level of suspicion for septic arthritis. s/p central line placement for access on the . vss are stable, not actively spiking fevers while on vanc. ID consulted given osteo findings of left anterior tibia. on vanc and ctx. #Osteomyelitis of L ant tib #c/f Septic arthritis- ruled out #Hx of tricompartment arthirits s/p aspiration: 5mL fluid, patient still feeling pain with passive extension of knee. Difficult to assess true pain due to incredibly labile responses and obvious meth high. CRP 7.8, ESR 99. Knee XR showed advance tricompartment osteoarthirits with erosive change involving the lateral joint space. Tib/fib XR suspiscious for osteomyelitis involving the TBI L Knee MRI w/o contrast with findings are consistent with osteomyelitis involving the anterior cortex of the tibia, recommend this patient return for MRI tibia-fibula images post intravenous contrast Blood cx NGTD @ 48 hrs. L knee aspiration culture with Staph A PICC line placed 01/30 No US guided aspiration performed 01/30 05/28 minimal fluid Plan: -arthrocentesis fluid cultures, growing Staph A. -Ceftriaxone 2g QD (02/28- )intended end date 03/28 per ID recs given c/f osteo -Doxycycline 100 mg BID (03/03- ) intended end date 03/28 -Vanc (02/28-03/02) -Zosyn 3.375 x1 (02/28) -Tylenol IV pain control -Morphine 2mg IVP Q4HR PRN -Ortho Dr. Chand consulted, appreciate recs -ID consulted, Dr. Ruzi, appreciate recs. -PT consulted. #PSUD - on methadone #Active Meth use #Hx of opioid Use disorder #Agitation UDS not done in ED, no point in checking now that she has received pain management. And admitted to meth use. 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 Labs from [facility] demonstrate cocci IgM and IgG negative IgM positive, IgG not performed Plan: - cont Fluconazole 400 mg po qd Electrolyte abnormalities - repleate as indicated - please give PO meds with sips of water. - central line placed Health Maintenance: Code status: Full DVT prophylaxis: SCDs GI prophylaxis: protonix Diet: mechanical alteration Mauricio: Yes Lines: PIV 20 gauge in R pinky finger and R fem central line Supplemental O2: None Disposition: Med surg for concerns for osteomyelitis of L anterior tibia, on vanc and ctx, and fluconazole , blood cx negative, L knee culture with staph A, Plan discussed with my attending Dr. Nikki Guthrie MD PGY1 Attending Provider Attestation/Addendum I, Meg Jordan, DO, attest that I was physically present for the giordano portions of the service and evaluated the patient with the resident and I reviewed and discussed the case with the resident and agree with the resident's findings and plans of care as documented above Patient seen and evaluated this AM. She states that she still has pain in her left knee. Patient noted to have vape in her hand while she slept. Advised patient not to vape. She continues to have scattered wheezing noted on lung exam. Will continue with breathing treatments. Will continue wtih IV abx for empiric tx of osteomyelitis. Anticipate DC on Wednesday at [facility] as authorization is pending.
[2025-03-03] MEDS: DOCUSATE SOD 100 MG CAPSULE PO (08:02)
[2025-03-03] MEDS: DOXYCYCLINE 100 MG TABLET PO ×2 (08:02→20:54)
[2025-03-03] MEDS: ESCITALOPRAM OXALATE 10 MG TABLET PO (08:02)
--- NOTE | 2025-03-03 10:46 | PC.PT ---
03/03/2025 PT maria elena performed - pt stood at [facility] but not yet able to amb.
[2025-03-03] MEDS: FLUCONAZOLE 100 MG TABLET 400 MG PO (11:57)
[2025-03-03] MEDS: MORPHINE SULF INJ 4 MG/ML VIAL 2 MG IVP (12:42)
--- NOTE | 2025-03-03 14:36 | PC.SS ---
Rounding: I ABX, pending auth for [facility] who stated most likely Wednesday. SS also left message for [facility] LVL2 branding specialist.
[2025-03-03] MEDS: cefTRIAXone/D5w 2gm 2 GM/50 ML BAG IV (20:52)
[2025-03-04] VITALS (8 sets, daily range): BP systolic 120–147; BP diastolic 74–95; PULSE 55–78; RESP 16–95; TEMP 36.1–36.9; O2SAT 92–97
[2025-03-04 05:39] LABS: Basophils # (Auto) 0.0 Thou/mm3 (0.0-0.2); Basophils % (Auto) 0 % (0-2.5); Eosinophils # (Auto) 0.0 Thou/mm3 (0.0-0.5); Eosinophils % (Auto) 0 % (0-10); Hematocrit 33.6 % (36.0-46.0); Hemoglobin 10.4 g/dL (12.0-16.0); Immature Granulocytes Auto 0.02 Thou/mm3 (0.00-0.00); Lymphocytes # (Auto) 1.1 Thou/mm3 (1.0-4.8); Lymphocytes % (Auto) 32 % (10-50); Mean Corpuscular HGB Conc 31.0 g/dl (31.0-37.0); Mean Corpuscular Hemoglobin 26.7 pg (25.0-35.0); Mean Corpuscular Volume 86 fL (80-100); Monocytes # (Auto) 0.5 Thou/mm3 (0.0-0.8); Monocytes % (Auto) 13 % (0-12); Neutrophils # (Auto) 1.9 Thou/mm3 (1.8-7.7); Neutrophils % (Auto) 54 % (37-80); Nucleated Red Blood Cell # 0.00 Thou/mm3 (0.00-0.00); Nucleated Red Blood Cell % 0 /100 WBC (0); Platelet Count 113 Thou/mm3 (140-440); RDW Standard Deviation 48.7 fL (36.4-46.3); Red Blood Count 3.90 Miln/mm3 (4.00-5.20); White Blood Count 3.5 Thou/mm3 (3.6-11.0)
[2025-03-04] MEDS: METHADONE HCL 10 MG TABLET 140 MG PO (06:05)
[2025-03-04] MEDS: GABAPENTIN 300 MG CAPSULE 600 MG PO ×3 (06:05→21:08)
[2025-03-04 06:14] LABS: Alanine Aminotransferase 26 U/L (10-49); Albumin, Serum 3.8 gm/dL (3.5-5.0); Albumin/Globulin Ratio 1.1 (1.2-2.2); Alkaline Phosphatase 112 U/L (46-116); Anion Gap 7 (7-16); Aspartate Amino Transferase 36 U/L (0-34); BUN/Creatinine Ratio 14 Ratio (12-20); Bilirubin,Total < 0.2 mg/dL (0.3-1.2); Blood Urea Nitrogen 7 mg/dL (9-23); Calcium 9.1 mg/dL (8.3-10.6); Calcium (Corrected) 9.3 mg/dL (8.5-10.1); Carbon Dioxide 32.3 mMol/L (20.0-31.0); Chloride 101 mMol/L (98-107); Creatinine (Component) 0.5 mg/dL (0.6-1.3); Estimated Creatinine Clearance 149.7 mL/min (>60); Globulin 3.4 gm/dL (2.3-3.5); Glucose 85 mg/dL (74-106); Magnesium 2.0 mg/dL (1.6-2.6); Osmolality,Calculated 276 (275-295); Phosphorous 4.5 mg/dL (2.4-5.1); Potassium 4.2 mMol/L (3.4-5.1); Sodium 140 mMol/L (136-145); Total Protein 7.2 gm/dL (5.7-8.2); eGFR > 60 See Note
--- NOTE | 2025-03-04 07:35 | ESPR_ITS ---
Documentation for date of: 03/04/25 Subjective Subjective Interval history: Patient seen and examined at bedside. Patient seen sitting upright in bed following eating several cups of pudding. Patient seen moving left foot and able to bend left knee a couple more degrees than previously noted. Left knee appears to be less edematous and less tender to palpation bilateral lower extremities showed increased skin wrinkling of the shins. Plan to discontinue right femoral central line. Patient will continue on IV antibiotics plan for discharge to SNF tomorrow. Exam Vital Signs Temp Pulse Resp BP Pulse Ox O2 Del Method 98.4 F 55 L 16 140/78 H 95 Room Air 03/04/25 04:00 03/04/25 06:25 03/04/25 06:25 03/04/25 04:00 03/04/25 06:03/04/25 04:00 Narrative Exam GENERAL APPEARANCE: AOx3. NAD, activity normal for age, well developed/ well nourished, no cyanosis, pallor, or diaphoresis. HEENT: Normocephalic atraumatic, no facial trauma, poor dentition CARDIAC: Regular rate and rhythm, S1+S2 heard. No murmurs, rubs, or gallops noted, diminished pedal pulses, RESPIRATORY: respiratory effort normal, speaks in full sentences, no tripod position, no accessory muscle use. Lungs clear to auscultation without rhonchi, wheezes, rales ABDOMINAL: NBS. Soft, ND/NT. No evidence of fluid wave. No pulsatile masses on exam, rebound tenderness, MUSCLES/EXTREMITIES: Chronic venous stasis bilaterally - malave bronzing and violacious. trace pedal edema. L knee less swollen compared to prior and less tender to palpation along the joint line , unable to stand on it,able to bend left knee a little more than prior but unable to bed to 90 degrees. DERM: Warm, pink and dry. No rashes, dermatoses, petechiae or lesions. NEUROLOGICAL: Speech is clear and appropriate. Normal level of consciousness. Gait not assessed (she uses wheelchair at baseline). PSYCH: Normal mood and affect. Judgement/competence is appropriate Objective Labs 03/04/25 04:32 03/04/25 04:32 Labs: Laboratory Results - last 24 hr 03/04/25 04:32 WBC 3.5 L RBC 3.90 L Hgb 10.4 L Hct 33.6 L MCV 86 MCH 26.7 MCHC 31.0 RDW Std Deviation 48.7 H Plt Count 113 L D Neut % (Auto) 54 Lymph % (Auto) 32 [place] % (Auto) 13 H Eos % (Auto) 0 Baso % (Auto) 0 Neut # (Auto) 1.9 Lymph # (Auto) 1.1 [place] # (Auto) 0.5 Eos # (Auto) 0.0 Baso # (Auto) 0.0 Immature Gran # (Auto) 0.02 H Absolute Nucleated RBC 0.00 Immature Gran % 1 H Nucleated RBC % 0 Sodium 140 Potassium 4.2 Chloride 101 Carbon Dioxide 32.3 H Anion Gap 7 BUN 7 L Creatinine 0.5 L Estim Creat Clear Calc 149.7 eGFR > 60 BUN/Creatinine Ratio 14 Glucose 85 Calculated Osmolality 276 Calcium 9.1 Corrected Calcium 9.3 Phosphorus 4.5 Magnesium 2.0 Total Bilirubin < 0.2 L AST 36 H ALT 26 Alkaline Phosphatase 112 Total Protein 7.2 Albumin 3.8 Globulin 3.4 Albumin/Globulin Ratio 1.1 L Quality Measures Quality Measures VTE prophylaxis Assessment & Plan Assessment Current Active Medications: Generic Name Dose Route Start Last Admin Trade Name Freq PRN Reason Stop Dose Admin Acetaminophen 650 mg 02/28/25 02:15 02/28/25 16:58 Acetaminophen 325 Mg Tablet PO 03/30/25 02:14 650 mg Q6H PRN Administration Fever >100.4 or pain 1-3 Albuterol/Ipratropium 3 ml 03/03/25 18:55 Albuterol/Ipratropium (Duoneb) Rt Lore[place] 3 Ml Nebu INH 04/01/25 18:59 Q6HRRT PRN WHEEZING Docusate Sodium 100 mg 02/28/25 09:00 03/03/25 08:02 Docusate Sod 100 Mg Capsule PO 03/30/25 08:59 100 mg QDAY YVES Administration Protocol Doxycycline Hyclate 100 mg 03/03/25 09:00 03/03/25 20:54 Doxycycline 100 Mg Tablet PO 03/28/25 08:59 100 mg BID YVES Administration Escitalopram Oxalate 10 mg 02/28/25 15:30 03/03/25 08:02 Escitalopram Oxalate 10 Mg Tablet PO 03/30/25 15:29 10 mg QDAY YVES Administration Fluconazole 400 mg 03/03/25 09:45 03/03/25 11:57 Fluconazole 100 Mg Tablet PO 03/10/25 09:44 400 mg QDAY YVES Administration Gabapentin 600 mg 02/28/25 15:30 03/04/25 06:05 Gabapentin 300 Mg Capsule PO 03/30/25 15:29 600 mg TID YVES Administration Ceftriaxone Sodium/Dextrose 2 gm in 50 mls @ 100 mls/hr 02/28/25 21:00 03/03/25 20:52 Rocephin/D5w 2gm IV 03/28/25 20:59 100 mls/hr 2100 YVES Administration Methadone HCl 140 mg 02/28/25 08:30 03/04/25 06:05 Methadone Hcl 10 Mg Tablet PO 03/05/25 08:29 140 mg 0600 YVES Administration Protocol Morphine Sulfate 2 mg 02/28/25 02:21 03/03/25 12:42 Morphine Sulf Inj 4 Mg/Ml Vial IVP 03/05/25 02:20 2 mg Q4HR PRN Administration PAIN SCALE 7-10 (Severe Olanzapine 5 mg 02/28/25 21:00 03/03/25 20:52 Olanzapine 5 Mg Tablet PO 03/30/25 20:59 5 mg HS YVES Administration Ondansetron HCl 4 mg 02/28/25 02:15 Ondansetron Inj 2 Mg/Ml Inj 2 Ml IVP 03/30/25 02:14 Q6H PRN NAUSEA OR VOMITING Protocol Quetiapine Fumarate 50 mg 02/28/25 21:00 03/03/25 20:52 Quetiapine Fumarate 25 Mg Tablet PO 03/30/25 20:59 50 mg HS YVES Administration Plan Ms. 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 Chand report)presents to the ED for a chief complaint of left knee pain and swelling since last night and sepsis, per discussion with Dr. Chand, he has low level of suspicion for septic arthritis. s/p central line placement for access on the . vss are stable, not actively spiking fevers while on vanc. ID consulted given osteo findings of left anterior tibia. on vanc and ctx. #Osteomyelitis of L ant tib #c/f Septic arthritis- ruled out #Hx of tricompartment arthirits s/p aspiration: 5mL fluid, patient still feeling pain with passive extension of knee. Difficult to assess true pain due to incredibly labile responses and obvious meth high. CRP 7.8, ESR 99. Knee XR showed advance tricompartment osteoarthirits with erosive change involving the lateral joint space. Tib/fib XR suspiscious for osteomyelitis involving the TBI L Knee MRI w/o contrast with findings are consistent with osteomyelitis involving the anterior cortex of the tibia, recommend this patient return for MRI tibia-fibula images post intravenous contrast Blood cx NGTD @ 48 hrs. L knee aspiration culture with Staph A PICC line placed 01/30 No US guided aspiration performed 01/30 05/28 minimal fluid Plan: -arthrocentesis fluid cultures, growing Staph A. -Ceftriaxone 2g QD (02/28- )intended end date 03/28 per ID recs given c/f osteo -Doxycycline 100 mg BID (03/03- ) intended end date 03/28 -Vanc (02/28-03/02) -Zosyn 3.375 x1 (02/28) -Tylenol IV pain control -Morphine 2mg IVP Q4HR PRN -Ortho Dr. Chand consulted, appreciate recs -ID consulted, Dr. Ruiz, appreciate recs. -PT consulted. #PSUD - on methadone #Active Meth use #Hx of opioid Use disorder #Agitation UDS not done in ED, no point in checking now that she has received pain management. And admitted to meth use. 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 Labs from [facility] demonstrate cocci IgM and IgG negative IgM positive, IgG not performed Plan: - cont Fluconazole 400 mg po qd Electrolyte abnormalities - repleate as indicated Health Maintenance: Code status: Full DVT prophylaxis: SCDs GI prophylaxis: protonix Diet: mechanical alteration Mauricio: Yes Lines: PIV 20 gauge in R pinky finger and d/c right fem line Supplemental O2: None Disposition: Med surg for concerns for osteomyelitis of L anterior tibia, on vanc and ctx, and fluconazole , blood cx negative, L knee culture with staph A, cont on iv abx Plan discussed with my attending Dr. Jordan and my senior resident Dr. Dao Orellana MD PGY1 Attending Provider Attestation/Addendum I, Meg Jordan DO, attest that I was physically present for the giordano portions of the service and evaluated the patient with the resident and I reviewed and discussed the case with the resident and agree with the resident's findings and plans of care as documented above Patient seen and evaluated this AM. No acute events overnight. Patient has no pain and states she is feeling well. Respiratory status much improved, less wheezing noted today. Anticipate DC to SNF tomorrow to continue with IV abx. Discussed with patient treatment plan and need for outpatient f/u regarding meniscal and ACL tears in left leg. Counselled on cessation of methamphetamine use.
[2025-03-04] MEDS: DOCUSATE SOD 100 MG CAPSULE PO (08:08)
[2025-03-04] MEDS: FLUCONAZOLE 100 MG TABLET 400 MG PO (08:08)
[2025-03-04] MEDS: ESCITALOPRAM OXALATE 10 MG TABLET PO (08:08)
[2025-03-04] MEDS: DOXYCYCLINE 100 MG TABLET PO ×2 (08:08→21:08)
--- NOTE | 2025-03-04 18:00 | PC.NURSE ---
Received call from Dr. Chand. He spoke to patient about surgery tomorrow. Orders to obtain consent placed for right knee arthroscopic I&D placed, NPO after Midnight order in. Plan for surgery tomorrow. Dr Orellana notified.
--- NOTE | 2025-03-04 18:12 | PC.NURSE ---
Received call from Dr. Chand. He spoke to patient about surgery tomorrow. Orders to obtain consent placed for left knee arthroscopic I&D placed, NPO after Midnight order in. Plan for surgery tomorrow. Dr Orellana notified.
[2025-03-04] MEDS: MORPHINE SULF INJ 4 MG/ML VIAL 2 MG IVP (18:13)
--- NOTE | 2025-03-04 19:49 | PD.ORTHCONPN ---
Subjective Subjective Brief History: The patient is a 49-year-old female with over 1 year of left knee pain. She was told she needed a knee replacement in the past. She reports 1 day increase in pain. She is a IV drug abuser and is homeless and is not a great candidate for total knee replacement. She came into the emergency room yesterday with elevated ESR and CRP. She reports she has had severe knee pain for the last 4 months which increased in the last day. She reports that she has been aspirated 6 times in the past 6 months at [facility], and [facility] and [place] been negative. She reports the last tap has been so painful that she does not want further taps. She has known yfnt-bz-llis arthritis of the lateral compartment of her left knee. She was aspirated in the ER where they found 5 cc of blood. This was sent for culture. No cell count could be obtained from this. Narrative: The patient reports that the pain has improved somewhat. We discussed that one of her cultures did turn positive and this is why she is getting a PICC. She also had an MRI which demonstrates anterior tibial osteomyelitis which likely has been present for a while given that she has had over 1 year of knee pain. Exam Vital Signs Temp Pulse Resp BP Pulse Ox O2 Del Method 97.5 F 58 L 18 128/74 95 Room Air 03/04/25 15:59 03/04/25 15:59 03/04/25 15:59 03/04/25 15:59 03/04/25 15:59 03/04/25 15:59 Additional findings Additional findings: Culture from the ER aspiration demonstrates MSSA Cell count could not be obtained An MRI demonstrates tibial osteomyelitis from this admission Objective - Ortho Labs 03/04/25 04:32 03/04/25 04:32 Labs: Laboratory Results - last 24 hr 03/04/25 04:32 WBC 3.5 L RBC 3.90 L Hgb 10.4 L Hct 33.6 L MCV 86 MCH 26.7 MCHC 31.0 RDW Std Deviation 48.7 H Plt Count 113 L D Neut % (Auto) 54 Lymph % (Auto) 32 [place] % (Auto) 13 H Eos % (Auto) 0 Baso % (Auto) 0 Neut # (Auto) 1.9 Lymph # (Auto) 1.1 [place] # (Auto) 0.5 Eos # (Auto) 0.0 Baso # (Auto) 0.0 Immature Gran # (Auto) 0.02 H Absolute Nucleated RBC 0.00 Immature Gran % 1 H Nucleated RBC % 0 Sodium 140 Potassium 4.2 Chloride 101 Carbon Dioxide 32.3 H Anion Gap 7 BUN 7 L Creatinine 0.5 L Estim Creat Clear Calc 149.7 eGFR > 60 BUN/Creatinine Ratio 14 Glucose 85 Calculated Osmolality 276 Calcium 9.1 Corrected Calcium 9.3 Phosphorus 4.5 Magnesium 2.0 Total Bilirubin < 0.2 L AST 36 H ALT 26 Alkaline Phosphatase 112 Total Protein 7.2 Albumin 3.8 Globulin 3.4 Albumin/Globulin Ratio 1.1 L Assessment & Plan Diagnosis (1) Arthritis of left knee: Status: Acute (2) Osteomyelitis: Status: Acute (3) Pain in left knee: Status: Acute Assessment Additional comments: Patient is a 49 yo female with left knee pain and bone on bone arthritis who has been aspirated over 6 times in the past 6 months and chronic knee pain in an IVDA. One of the cultures from the recent admission turned positive for MSSA. ID recommends treating the infection. The patient has changes consistent with osteomyelitis but it is unclear whether a septic knee is present as no cell count has been obtained. Given that the clinical picture is still a little unclear, we recommended IR aspiration. This tap was dry similar to previous aspirations. the patient has improved somewhat clinically. I talked to the patient today regarding different treatment options in light of the recent events. Given that the patient has a single positive culture with MSSA, and that we have no cell count, I discussed that we have 2 options. Option 1 is to treat the osteomyelitis with IV antibiotics as she is already getting and see how she does clinically. In addition, I discussed that this may be a reasonable option as we are unsure whether she has an infection as all aspirations have been dry. I also gave her another option which is to treated aggressively with a irrigation and debridement of the knee. I discussed that the risks of the surgery include persistent infection, progression of arthritis, and that pain may not improve as she has significant agyi-br-wjpn arthritis which will not improve with the surgery. However I discussed that this may slow the progression of arthritis or help with her symptoms if she does have a septic knee which I am still unsure of. I discussed both options with the patient and she would like to proceed with an arthroscopic irrigation and debridement for a presumed septic knee with tibial osteomyelitis. There is no large purulent collection according to the MRI of the left lower extremity. The patient understands the risks and benefits of surgery including likely persistent infection and progression of arthritis and continued pain and would like to proceed with the surgery. Will plan to do this tomorrow. - npo at midnight. We expect the patient to be able to go to a half-way on Wednesday for antibiotics - plan for arthroscopic irrigation and debridement of the knee tomorrow Documentation for date of: 03/04/25
[2025-03-04] MEDS: cefTRIAXone/D5w 2gm 2 GM/50 ML BAG IV (21:08)
[2025-03-05] VITALS (16 sets, daily range): BP systolic 108–171; BP diastolic 73–133; PULSE 67–118; RESP 16–24; TEMP 36.1–36.3; O2SAT 91–100; BMI 34.0
[2025-03-05 05:24] LABS: Alanine Aminotransferase 30 U/L (10-49); Albumin, Serum 3.9 gm/dL (3.5-5.0); Albumin/Globulin Ratio 1.1 (1.2-2.2); Alkaline Phosphatase 119 U/L (46-116); Anion Gap 6 (7-16); Aspartate Amino Transferase 40 U/L (0-34); BUN/Creatinine Ratio 18 Ratio (12-20); Bilirubin,Total 0.2 mg/dL (0.3-1.2); Blood Urea Nitrogen 11 mg/dL (9-23); Calcium 9.5 mg/dL (8.3-10.6); Calcium (Corrected) 9.6 mg/dL (8.5-10.1); Carbon Dioxide 35.8 mMol/L (20.0-31.0); Chloride 99 mMol/L (98-107); Creatinine (Component) 0.6 mg/dL (0.6-1.3); Estimated Creatinine Clearance 124.8 mL/min (>60); Globulin 3.6 gm/dL (2.3-3.5); Glucose 90 mg/dL (74-106); Magnesium 2.1 mg/dL (1.6-2.6); Osmolality,Calculated 280 (275-295); Phosphorous 4.6 mg/dL (2.4-5.1); Potassium 4.2 mMol/L (3.4-5.1); Sodium 141 mMol/L (136-145); Total Protein 7.5 gm/dL (5.7-8.2); eGFR > 60 See Note
--- NOTE | 2025-03-05 08:30 | ESPR_ITS ---
<Statement entered by Nuno Subramanian MD - 03/05/25 15:57> Patient seen at bedside pain is well-controlled with current pain management. Patient is scheduled to undergo a washout procedure with Dr. Chand. Will continue IV antibiotics through the PICC line. Patient was seen and examined by me personally. I have directly supervised and reviewed documentation by the team resident and agree with its findings. ------- Plan of care was discussed with the attending, Dr. Nikki Subramanian, PGY-2 Documentation for date of: 03/05/25 Subjective Subjective Interval history: npo pending washout with Dr Chand today Exam Vital Signs Temp Pulse Resp BP Pulse Ox O2 Del Method 97.3 F 69 18 146/87 H 96 Room Air 03/05/25 07:35 03/05/25 07:35 03/05/25 07:35 03/05/25 07:35 03/05/25 07:35 03/05/25 07:35 Narrative Exam GENERAL APPEARANCE: AOx3. NAD, activity normal for age, well developed/ well nourished, no cyanosis, pallor, or diaphoresis. HEENT: Normocephalic atraumatic, no facial trauma, poor dentition CARDIAC: Regular rate and rhythm, S1+S2 heard. No murmurs, rubs, or gallops noted, diminished pedal pulses, RESPIRATORY: respiratory effort normal, speaks in full sentences, no tripod position, no accessory muscle use. Lungs clear to auscultation without rhonchi, wheezes, rales ABDOMINAL: NBS. Soft, ND/NT. No evidence of fluid wave. No pulsatile masses on exam, rebound tenderness, MUSCLES/EXTREMITIES: Chronic venous stasis bilaterally - malave bronzing and violacious. trace pedal edema. L knee less swollen compared to prior and less tender to palpation along the joint line , unable to stand on it,able to bend left knee a little more than prior but unable to bed to 90 degrees. DERM: Warm, pink and dry. No rashes, dermatoses, petechiae or lesions. NEUROLOGICAL: Speech is clear and appropriate. Normal level of consciousness. Gait not assessed (she uses wheelchair at baseline). PSYCH: Normal mood and affect. Judgement/competence is appropriate Objective Labs 03/04/25 04:32 03/05/25 04:20 Labs: Laboratory Results - last 24 hr 03/05/25 04:20 Sodium 141 Potassium 4.2 Chloride 99 Carbon Dioxide 35.8 H Anion Gap 6 L BUN 11 Creatinine 0.6 Estim Creat Clear Calc 124.8 eGFR > 60 BUN/Creatinine Ratio 18 Glucose 90 Calculated Osmolality 280 Calcium 9.5 Corrected Calcium 9.6 Phosphorus 4.6 Magnesium 2.1 Total Bilirubin 0.2 L AST 40 H ALT 30 Alkaline Phosphatase 119 H Total Protein 7.5 Albumin 3.9 Globulin 3.6 H Albumin/Globulin Ratio 1.1 L Quality Measures Quality Measures VTE prophylaxis Assessment & Plan Assessment Current Active Medications: Generic Name Dose Route Start Last Admin Trade Name Freq PRN Reason Stop Dose Admin Acetaminophen 650 mg 02/28/25 02:15 02/28/25 16:58 Acetaminophen 325 Mg Tablet PO 03/30/25 02:14 650 mg Q6H PRN Administration Fever >100.4 or pain 1-3 Albuterol/Ipratropium 3 ml 03/03/25 18:55 Albuterol/Ipratropium (Duoneb) Rt [place] 3 Ml Nebu INH 04/01/25 18:59 Q6HRRT PRN WHEEZING Docusate Sodium 100 mg 02/28/25 09:00 03/04/25 08:08 Docusate Sod 100 Mg Capsule PO 03/30/25 08:59 100 mg QDAY YVES Administration Protocol Doxycycline Hyclate 100 mg 03/03/25 09:00 03/04/25 21:08 Doxycycline 100 Mg Tablet PO 03/28/25 08:59 100 mg BID YVES Administration Escitalopram Oxalate 10 mg 02/28/25 15:30 03/04/25 08:08 Escitalopram Oxalate 10 Mg Tablet PO 03/30/25 15:29 10 mg QDAY YVES Administration Fluconazole 400 mg 03/03/25 09:45 03/04/25 08:08 Fluconazole 100 Mg Tablet PO 03/10/25 09:44 400 mg QDAY YVES Administration Gabapentin 600 mg 02/28/25 15:30 03/05/25 05:45 Gabapentin 300 Mg Capsule PO 03/30/25 15:29 Not Given TID YVES Ceftriaxone Sodium/Dextrose 2 gm in 50 mls @ 100 mls/hr 02/28/25 21:00 03/04/25 21:08 Rocephin/D5w 2gm IV 03/28/25 20:59 100 mls/hr 2100 YVES Administration Olanzapine 5 mg 02/28/25 21:00 03/04/25 21:08 Olanzapine 5 Mg Tablet PO 03/30/25 20:59 5 mg HS YVES Administration Ondansetron HCl 4 mg 02/28/25 02:15 Ondansetron Inj 2 Mg/Ml Inj 2 Ml IVP 03/30/25 02:14 Q6H PRN NAUSEA OR VOMITING Protocol Quetiapine Fumarate 50 mg 02/28/25 21:00 03/04/25 21:08 Quetiapine Fumarate 25 Mg Tablet PO 03/30/25 20:59 50 mg HS YVES Administration Plan Ms. 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 Chand report)presents to the ED for a chief complaint of left knee pain and swelling since last night and sepsis, per discussion with Dr. Chand, he has low level of suspicion for septic arthritis. s/p central line placement for access on the . vss are stable, not actively spiking fevers while on vanc. ID consulted given osteo findings of left anterior tibia. on vanc and ctx. pending L knee washout with Dr. chand today. #Osteomyelitis of L ant tib #c/f Septic arthritis- ruled out, s/p washout 03/05 #Hx of tricompartment arthirits s/p aspiration: 5mL fluid, patient still feeling pain with passive extension of knee. Difficult to assess true pain due to incredibly labile responses and obvious meth high. CRP 7.8, ESR 99. Knee XR showed advance tricompartment osteoarthirits with erosive change involving the lateral joint space. Tib/fib XR suspiscious for osteomyelitis involving the TBI L Knee MRI w/o contrast with findings are consistent with osteomyelitis involving the anterior cortex of the tibia, recommend this patient return for MRI tibia-fibula images post intravenous contrast Blood cx NGTD @ 48 hrs. L knee aspiration culture with Staph A PICC line placed 01/30 No US guided aspiration performed 01/30 2/2 minimal fluid Pending washout today with Dr. Chand 03/05 Plan: -pending washout 03/05 -arthrocentesis fluid cultures, growing Staph A. -Ceftriaxone 2g QD (02/28- )intended end date 03/28 per ID recs given c/f osteo -Doxycycline 100 mg BID (03/03- ) intended end date 03/28 -Vanc (02/28-03/02) -Zosyn 3.375 x1 (02/28) -Tylenol IV pain control -Morphine 2mg IVP Q4HR PRN -Ortho Dr. Chand consulted, appreciate recs -ID consulted, Dr. Ruiz, appreciate recs. -PT consulted. #PSUD - on methadone #Active Meth use #Hx of opioid Use disorder #Agitation UDS not done in ED, no point in checking now that she has received pain management. And admitted to meth use. 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 Labs from [facility] demonstrate cocci IgM and IgG negative IgM positive, IgG not performed Plan: - cont Fluconazole 400 mg po qd Electrolyte abnormalities - repleate as indicated Health Maintenance: Code status: Full DVT prophylaxis: SCDs GI prophylaxis: protonix Diet: mechanical alteration Mauricio: Yes Lines: PIV 20 gauge in R pinky finger and d/c right fem line Supplemental O2: None Disposition: Med surg for concerns for osteomyelitis of L anterior tibia, on vanc and ctx, and fluconazole , blood cx negative, L knee culture with staph A, cont on iv abx Plan discussed with my attending Dr. Jordan and my senior resident Dr. Dao Orellana MD PGY1 Attending Provider Attestation/Addendum I, Meg Jordan, DO, attest that I was physically present for the giordano portions of the service and evaluated the patient with the resident and I reviewed and discussed the case with the resident and agree with the resident's findings and plans of care as documented above Patient seen and evaluated this AM. She states she is doing well. Left knee appears less edematous, but remains tender to palpation. She is pending washout of left knee with ortho today. Anticipate DC within next 24h if patient remains stable. Plan for SNF placement to continue with IV abx.
[2025-03-05] MEDS: METHADONE SOLUTION 5 MG/5 ML UDC 140 MG PO (10:36)
--- NOTE | 2025-03-05 10:42 | SUR.PREOP ---
Patient expressed gratitude for prayer before her procedure. [place] was still in her inpatient room before being taken to operating room.
[2025-03-05 11:04] LABS: INR 1.1 (0.9-1.3); Prothrombin Time 11.2 Seconds (9.0-12.2)
--- NOTE | 2025-03-05 13:36 | ESOP_ITS ---
Date of Procedure 03/05/25 Pre Op Diagnosis left knee septic arthritis Post Op Diagnosis left knee septic arthritis Procedure left knee arthroscopic irrigation and debridement Findings full thickness cartilage loss and osteophytes Procedure Description Indications: Patient is a pleasant 49-year-old female with a history of osteomyelitis and possibly a left septic knee. She has chronic osteoarthritis with vdlc-[id number]-[id number] arthritis. She has had 6 aspirations in the past with the recent 1 growing Staph aureus. Each aspiration has not yielded much fluid. She is being treated with IV antibiotics for her osteomyelitis and septic knee. We discussed the risks and benefits of the arthroscopic irrigation and debridement. I discussed with her that her arthritis will not improve from this as this is not going to be approved with an arthroscopic washout. Given her medical comorbidities and methamphetamine use, I do not think that any surgery implanting metal will be a great idea due to the infection risk. She understands the risks including persistent infection and would like to proceed with surgery Procedure in detail: The patient was prepped and draped in the usual sterile fashion. We first examined the patient under anesthesia. Range of motion was 10 to 80 degrees. Significant valgus deformity was present of approximately 20 degrees. It was correctable. A spinal needle was first introduced into a superior lateral portal to withdraw fluid w No fluid could be withdrawn. An inferior lateral incision was first utilized. A trocar was introduced. We also placed a superolateral portal for an L4 portal. A diagnostic arthroscopy was performed. Significant scar tissue and brfq-ej-ubus arthritis was present. There is full grade chondral loss on both the medial and lateral compartments. We thoroughly irrigated the knee with 5 L of fluid. We also placed inferomedial portal where we debrided some of the meniscus. There was significant degenerative pathology in the knee. Postoperative plan: Weightbearing as tolerated Physical therapy IV antibiotics Anesthesia GETA Pathology / specimen None Pathology comment: none Estimated Blood Loss 20 Condition Stable Disposition floor Surgeon Modesto Chand MD Surgical Staff Operation Date: 03/05/25 17:30 Case Staff MERCHANDISE PRESENTATION MANAGER: Ambrosio Smith
--- NOTE | 2025-03-05 13:55 | SUR.PHASEI ---
pt received from OR in recovery bay 4. pt obtunded, breathing labored on oxymask 15, oral airway in place. v/s stable. pt dressing to left knee cdi. report received from Tayler Mullins and Ambrosio BLANCO.
--- NOTE | 2025-03-05 13:55 | SUR.PHASEI ---
pt received from OR in recovery bay 4. pt obtunded, breathing unlabored on oxymask 15l, oral airway in place. v/s stable. pt dressing to left knee cdi. report received from Tasneem Mullins and Ambrosio BLANCO.
[2025-03-05] MEDS: ONDANSETRON INJ 2 MG/ML INJ 2 ML 4 MG IVP (14:05)
[2025-03-05] MEDS: HYDROmorphone INJ 2 MG/ML VIAL 0.5 MG IVP ×2 (14:14→14:25)
[2025-03-05] MEDS: MIDAZOLAM INJ 1 MG/ML VIAL 2 ML IVP (14:25)
--- NOTE | 2025-03-05 14:33 | PC.SS ---
rounding note: Patient back to surgery today for left knee I & D. D/c plan is to d/c to [facility]. Pending auth.
[2025-03-05] MEDS: fentaNYL CIT INJ 50 mCg/ML AMP 2ML IVP (14:37)
--- NOTE | 2025-03-05 15:15 | SUR.PHASEI ---
pt asleep but responds to voice, breathing unlabored on 2l nc. v/s stable. pt dressing to left lower extremity cdi. report called to Bella Mullins. pt will be transferred to room at this time.
--- NOTE | 2025-03-05 15:20 | PC.NURSE ---
Pt back from surgery.
[2025-03-05] MEDS: GABAPENTIN 300 MG CAPSULE 600 MG PO ×2 (15:24→20:59)
[2025-03-05 15:33] LABS: HCV RNA, PCR 391000 IU/mL
[2025-03-05] MEDS: cefTRIAXone/D5w 2gm 2 GM/50 ML BAG IV (20:55)
[2025-03-05] MEDS: DOXYCYCLINE 100 MG TABLET PO (20:56)
[2025-03-06] VITALS (7 sets, daily range): BP systolic 124–136; BP diastolic 72–95; PULSE 66–100; RESP 17–19; TEMP 36.1–36.8; O2SAT 94–96
[2025-03-06 06:00] LABS: Alanine Aminotransferase 33 U/L (10-49); Albumin, Serum 3.9 gm/dL (3.5-5.0); Albumin/Globulin Ratio 1.1 (1.2-2.2); Alkaline Phosphatase 131 U/L (46-116); Anion Gap 6 (7-16); Aspartate Amino Transferase 46 U/L (0-34); BUN/Creatinine Ratio 20 Ratio (12-20); Bilirubin,Total 0.2 mg/dL (0.3-1.2); Blood Urea Nitrogen 12 mg/dL (9-23); Calcium 9.0 mg/dL (8.3-10.6); Calcium (Corrected) 9.1 mg/dL (8.5-10.1); Carbon Dioxide 31.6 mMol/L (20.0-31.0); Chloride 102 mMol/L (98-107); Creatinine (Component) 0.6 mg/dL (0.6-1.3); Estimated Creatinine Clearance 122.4 mL/min (>60); Globulin 3.7 gm/dL (2.3-3.5); Glucose 131 mg/dL (74-106); Magnesium 2.1 mg/dL (1.6-2.6); Osmolality,Calculated 281 (275-295); Phosphorous 3.9 mg/dL (2.4-5.1); Potassium 4.5 mMol/L (3.4-5.1); Sodium 140 mMol/L (136-145); Total Protein 7.6 gm/dL (5.7-8.2); eGFR > 60 See Note
[2025-03-06] MEDS: GABAPENTIN 300 MG CAPSULE 600 MG PO ×2 (06:03→15:34)
--- NOTE | 2025-03-06 07:38 | PD.RESDS ---
Planned Discharge Date 03/06/25 DS: Providers Provider Date of admission: 02/28/25 02:15 Primary care physician: Physician No Primary/Family Admitting Provider: Jose G Bernard MD Attending Provider on Admission: Modesto Chand MD Consults: 02/28/25 15:58 Consult to Infectious Diseases Routine Comment: c/f osteo on MRI of tibia Consulting Provider: Salvador Ruiz 03/02/25 10:22 PT [Referral Physical Therapy] Routine Comment: Physician Instructions: Attending Provider on DC: Dr. Antonio Calix MD Discharging Provider: Dr. Antonio Calix MD DS: Diagnosis Problem List Completed Was Problem List Reviewed/Reconciled?: Yes Hospital Course Hospital Course Hospital course: Hospital Course Ms. Partida is a 49yo unhoused woman with a hx of IV drug use (heroine) on methadone, meth use, and hx of bone on bone arthritis of the L knee (with hx of multiple aspiration attempts, per discussion with ortho) who presented to the ED on 02/28/2025 with a chief complaint of left knee pain and swelling for 1 day and concern for sepsis, who was found to have osteoarthritis of the L anterior tibia (seen on xray tib fib and mri LE ) Infectious disease was consulted, who recommended a 4 week course of IV antibiotics with 2gm ceftriaxone with end date 03/28/2025. Her left knee was markedly swollen but it was difficult to aspirate fluid for culture. joint aspirate taken from the ED grew staph A. She was found to be cocci positive Igm, and she was started on fluconazole 400 mg qd. Blood cultures were no growth to date, and PICC line was placed and she continued on IV antibiotics and pt was later taken for wash out of L knee with ortho, who advises against placing hardware in the knee in the future. Her pain was well controlled while inpatient, with her home methadone dose 140 mg qd. She was clinically stable and medically cleared for discharge to facility for continued iv antibiotics for LLE osteomyelitis Diagnoses #Osteomyelitis of L ant tib #c/f Septic arthritis- ruled out, s/p washout 03/05 #Hx of tricompartment arthirits #PSUD - on methadone Cocci (Valley Fever) #Active Meth use #Hx of opioid Use disorder #Agitation #Anxiety #Depression #Insomnia #Neuropathy #Venous stasis #Electrolyte abnormalities Discharge instructions -PLEASE complete IV ROCEPHIN and Oral DOXYCYCLINE through MARCH 28, 2025 -Please follow up with Dr Chand -Follow up with PCP within 1 week of discharge, if you do not have a primary care physician you can come see us at the [facility] by calling [phone] -Continue rest of medications as previously prescribed -Return to the ED or call EMS if symptoms return and/or worsen Plan discussed with my attending Dr. Calix and my senior resident Dr. Dao Orellana MD PGY1 Time Spent with Patient Time attestation: Total time spent providing and/or coordinating discharge services: Time spent: Greater than 30 minutes Exam Vital Signs Temp Pulse Resp BP Pulse Ox O2 Del Method O2 Flow Rate 96.9 F 74 17 127/95 H 95 Room Air 1 03/06/25 04:00 03/06/25 04:00 03/06/25 04:00 03/06/25 04:00 03/06/25 04:00 03/06/25 04:00 03/06/25 00:00 Narrative Exam GENERAL APPEARANCE: AOx3. NAD, activity normal for age, well developed/ well nourished, no cyanosis, pallor, or diaphoresis. HEENT: Normocephalic atraumatic, no facial trauma, poor dentition CARDIAC: Regular rate and rhythm, S1+S2 heard. No murmurs, rubs, or gallops noted, diminished pedal pulses, RESPIRATORY: respiratory effort normal, speaks in full sentences, no tripod position, no accessory muscle use. Lungs clear to auscultation without rhonchi, wheezes, rales ABDOMINAL: NBS. Soft, ND/NT. No evidence of fluid wave. No pulsatile masses on exam, rebound tenderness, MUSCLES/EXTREMITIES: Chronic venous stasis bilaterally - malave bronzing and violacious. trace pedal edema. L knee less swollen compared to prior and less tender to palpation along the joint line , unable to stand on it,able to bend left knee a little more than prior but unable to bed to 90 degrees. DERM: Warm, pink and dry. No rashes, dermatoses, petechiae or lesions. NEUROLOGICAL: Speech is clear and appropriate. Normal level of consciousness. Gait not assessed (she uses wheelchair at baseline). PSYCH: Normal mood and affect. Judgement/competence is appropriate Discharge Plan Plan Patient Disposition: Xfer Skilled Nsg Fac (SNF) Disposition Comment: [facility] Care Plan Goals: -PLEASE complete IV ROCEPHIN and Oral DOXYCYCLINE through MARCH 28, 2025 -Please follow up with Dr Chand -Follow up with PCP within 1 week of discharge, if you do not have a primary care physician you can come see us at the [facility] by calling [phone] -Continue rest of medications as previously prescribed -Return to the ED or call EMS if symptoms return and/or worsen Prescriptions/Referrals Prescriptions/Med Rec: New fluconazole 100 mg Tablet 400 mg PO QDAY 90 Days Qty: 360 0RF doxycycline hyclate 100 mg Tablet 100 mg PO BID 23 Days Qty: 46 0RF ceftriaxone in dextrose,iso-os 2 gram/50 mL Piggyback 2 g IV 2100 Qty: 24 0RF Continued albuterol sulfate 90 mcg/actuation HFA aerosol inhaler 2 inh inhalation QID PRN (Reason: shortness of breath or wheezing) Qty: 8.5 0RF quetiapine [Seroquel] 50 mg tablet 50 mg PO ONCE HS Rx Instructions: administer on day 1 of therapy trazodone 50 mg tablet 50 mg PO HS Patient Comments: TAKE ONE TABLET BY MOUTH AT BEDTIME FOR SLEEP gabapentin 600 mg tablet 600 mg PO TID Patient Comments: TAKE 1 TABLET BY MOUTH THREE TIMES A DAY olanzapine 5 mg tablet 5 mg PO HS Patient Comments: TAKE 1 TABLET BY MOUTH EVERYDAY AT BEDTIME methadone 5 mg Tablet 140 mg PO 0600 escitalopram oxalate 10 mg tablet 10 mg PO QDAY hydrocodone-acetaminophen 10-325 mg tablet 1 tab PO Q6H MDD 4 PRN (Reason: pain) Qty: 20 0RF Discontinued albuterol sulfate 90 mcg/actuation HFA aerosol inhaler 1 inh inhalation QID PRN (Reason: shortness of breath or wheezing) Qty: 8.5 0RF Referrals: No Primary/Family,Physician [Primary Care Provider] Patient/Caregiver Discharge Instructions Discharge Activity: activity as tolerated Print Language: Macedonian Stand Alone Forms: Елена Award Info., Patient Portal Info Letter Discharge Order Discharge Orders: Discharge (Routine); Ordered 03/06/25 Ordered By: Lurdes Orellana Quality Discharge Quality Measures VTE prophylaxis Attestestation MD Deysi Cast reviewed labs, imaging, EKG, home medications and prior available records. Face to face evaluation was performed by me. I have personally examined the patient and discussed assessment and plan with the IM team. I reviewed the resident note and agree with the plan with exceptions as below. Septic arthritis Osteomyelitis of left tibia History of valley fever Status post irrigation/debridement Status post PICC line Continue ceftriaxone/doxycycline till March 28, 2025 Weekly CBC and BMP while on this treatment Continue fluconazole Time spent is 42 minutes. More than 50% of the time was spent on patient education and coordination of care.
[2025-03-06] MEDS: METHADONE SOLUTION 1 MG/1 ML 140 MG PO (08:44)
[2025-03-06] MEDS: FLUCONAZOLE 100 MG TABLET 400 MG PO (08:46)
[2025-03-06] MEDS: DOCUSATE SOD 100 MG CAPSULE PO (08:47)
[2025-03-06] MEDS: DOXYCYCLINE 100 MG TABLET PO (08:47)
[2025-03-06] MEDS: ESCITALOPRAM OXALATE 10 MG TABLET PO (08:47)
--- NOTE | 2025-03-06 09:10 | PC.SS ---
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 Notified patient and floor nurse. Original Note: Follow up note: SS spoke to Yoana @ [facility] and they already have auth for patient. They can accept today. They need updated i.v. antibiotics orders/duration. Patient will need i.v. antibiotics until beginning Dec. SS will coordinate with floor nurse as facility prefers patient to d/c by 4p.m.
--- NOTE | 2025-03-06 15:08 | PC.NURSE ---
Report given to DAVID Flood at [facility]. Patient will be discharging from [id number].
--- NOTE | 2025-03-06 18:38 | PC.CC ---
Called [facility] regarding transportation , picker / packer time was set for 1600 but was cancelled due to needing more information, set up new transportation time. [facility] will call to confirm time before 2100. new ref#[id number]
--- NOTE | 2025-03-06 18:49 | PC.NURSE ---
Pt. still not picked up yet to go to [facility], I called [facility] @ , I spoke with Fina who stated, the transportation was just booked 15 minutes ago, they are working on it, it can take 1-3 hours, trip #[id number].
[2025-03-06] MEDS: ONDANSETRON INJ 2 MG/ML INJ 2 ML 4 MG IVP (19:36)
[2025-03-07 07:38] LABS: HCV RNA, PCR Log IU 5.59 Log IU/mL
--- NOTE | 2025-03-07 07:55 | CHAP ---
Patient was visited by a Spiritual Care Volunteer on 03/06/2025 between 1410 and 1712 and received comfort, encouragement and/or prayer.
== END 2025-03-06 19:50 | disposition skilled nursing facility (03) | DRG 344 ==
LOC: SERX 02-28 01:52 → SERHOLD 02-28 02:35 → S3NX 02-28 03:51
PROVIDERS: Internal Medicine Infectious Disease; Physician Assistant; Radiology Diagnostic Radiology; Admitting Provider Internal Medicine; Emergency Provider Emergency Medicine; Visit Provider Orthopaedic Surgery Adult Reconstructive Orthopaedic Surgery
PROC: (CPT 29870; principal; 2025-03-05 17:30)
DX: M86.162 Other acute osteomyelitis, left tibia and fibula (principal); M00.9 Pyogenic arthritis, unspecified; F15.10 Other stimulant abuse, uncomplicated; F11.20 Opioid dependence, uncomplicated; F17.200 Nicotine dependence, unspecified, uncomplicated; F32.A Depression, unspecified; G62.9 Polyneuropathy, unspecified; F41.9 Anxiety disorder, unspecified; G47.00 Insomnia, unspecified; G89.29 Other chronic pain; B19.20 Unspecified viral hepatitis C without hepatic coma; M21.00 Valgus deformity, not elsewhere classified, unspecified site; Z59.01 Sheltered homelessness; B38.0 Acute pulmonary coccidioidomycosis; B95.61 Methicillin susceptible Staphylococcus aureus infection as the cause of diseases classified elsewhere; I87.8 Other specified disorders of veins; Z79.899 Other long term (current) drug therapy; Z99.3 Dependence on wheelchair
CPT/HCPCS: 36415; 71045; 73562; 73590; 73718; 80053; 80202; 81001; 81025; 83605; 83735; 84100; 84145; 84315; 85025; 85610; 85652; 85730; 86140; 86331; 86635; 86703; 86803; 87040; 87070; 87075; 87077; 87081; 87186; 87205; 87522; 89051; 93971; 94640; 94664; 94762; 96365; 96372; 96375; 97161; 99284; A4217; A4649; A9270; C1894; J0131; J0690; J0696; J1100; J1171; J1642; J1885; J2250; J2270; J2371; J2405; J2470; J2543; J2704; J3010; J3373; J3490; J7050; J0665

== ENCOUNTER 2025-03-16 09:39 | Outpatient (AMB) | payer MEDICAID, SELFPAY ==
--- NOTE | 2025-03-16 10:24 | PD.ORTHCLVIS ---
Vital signs 03/16/25 10:43 Height 1.65 m Height Method Stated Weight 96.162 kg Weight Measurement Method Estimated by Patient BMI 35.2 BP 121/76 Blood Pressure Source Automatic Cuff Blood Pressure Location Left Upper Arm Position Sitting Respiration 18 Pulse 75 Pulse Source Monitor Temp 97.8 F Temp Source Temporal Artery Scan Pulse Oximetry (%) 93 L Oxygen Delivery Method Room Air Med/Allergies Allergies & Medications Allergies No Known Allergies Allergy (Verified 02/27/25 19:29) Exam Exam Patient is in no acute distress and is cooperative with the examination today. Patient has a normal mood and affect. Breathing is nonlabored. In no respiratory distress. Bilateral extremities were evaluated and demonstrates sensation intact to light touch. Palpable pedal pulses are present. No significant edema is present. Left knee incision is clean dry and intact Assessment and Plan Problem List (1) Arthritis of left knee: Status: Acute Plan: Patient is a 49-year-old female with a septic arthritis of the left knee status post washout. She is on IV antibiotics and doing well. We removed her stitches today. Incision is clean dry and intact. We recommend continued antibiotics and we will see her in approximately 4 weeks for routine follow-up Office Procedures GNS Level of Care Nursing/Assessment Patient Status: Established Patient Nursing Assessment/Reassesment: Medication Reconciliation, Update PMH in EMR and Vital Signs Coordination of Care: Complex Care and Chronic Disease 1-5, Education Complex Pt/Fam, Consent,records obtained, informed consent, Lab and Imaging orders, Results/Orders obtained and Staff clarify orders Established Patient Charge Established Patient Point Assignment: 110 Established Patient Point Charge: EP Level 3 (80-115) MA Intake Visit Data Collection New Patient or Established: Established Patient (seen at [facility] within 3 years) Reason for Visit:: LEFT KNEE FOLLOW UP Seen by Clinical Staff ONLY (RN/MA): No PCP or OBGYN visit in last 3 months: Yes Hx Now: No Do You Feel Safe at Home: Yes Authorities Contacted: N/A Questionairres Past Medical History Past Medical History Have you ever been diagnosed with any of the following: Neurological Problems Cerebrovascular Accident (CVA): No Transient Ischemic Attacks (TIA): No Dementia: No Alzheimer's Disease: No Parkinson's Disease: No Brain Tumor: No Meningitis: No Seizures: No Epilepsy: No Multiple Sclerosis: No Cerebral Palsy: No Guillain-[place] Syndrome: No Spina Bifida: No Paralysis: No Peripheral Neuropathy: No Davis's Palsy: No Subdural Hematoma: No Migraine: No Head Trauma: No Spinal Cord Injury: No Traumatic Brain Injury: No Cardiology Problems Congestive Heart Failure: No Respiratory Problems Chronic Obstructive Pulmonary Disease (COPD): No Asthma: No Bronchitis: No Emphysema: No Pneumonia: No Pulmonary Edema: No Sleep Apnea: No Stomache/Intestinal Problems Hepatitis: No Pancreatitis: No Gall Bladder Disease: Yes Gastrointestinal Bleed: No Ulcerative Colitis: No Ulcer: No Colorectal Cancer: No Irritable Bowel: No Obstructive Bowel: No Hiatal Hernia: No Hemorrhoids: No Gastroesophageal Reflux Disease: No Obesity: Yes Genital/Urinary Problems Renal Disease: No Kidney Stones: No Polycystic Kidney Disease: No Neurogenic Bladder: No Inguinal Hernia: No Dialysis: No Reproductive Problems Breast Cancer: No Endometriosis: No Genital Herpes: No Gonorrhea: No Pelvic Inflammatory Disease: No Previous Pregnancies: No Syphilis: No Uterine Prolapse: No Musculoskeletal Problems Muscular Dystrophy: No Bone Cancer: No Scoliosis: No Head,Eye,Nose,Throat Problems Cataracts: No Glaucoma: No Blind: No Retinal Detachment: No Macular Degeneration: No Chronic Ear Infections: No Deafness: No Eye Prosthesis: No Endocrine Problems Diabetes Mellitus Type 1: No Diabetes Mellitus Type 2: No Blood Problems Anemia: No Leukemia: No Hemophilia: No Thalassemia: No Sickle Cell Disease: No Psychologic Problems Schizophrenia: No Recreational Drug Use: No Bipolar Disorder: No Depression: No Anxiety: No Behavior Problems: No Self-Mutilation: No Attention Deficit Disorder: No Attention Deficit Hyperactivity Disorder: No Depression: No Post Traumatic Stress Disorder: No Eating Disorder: No Other Problems Hospitalization: No Down Syndrome: No Autism: No Developmental Delay: No Shingles: No Falls: No Blood Transfusions: Yes Blood Transfusion Reaction: No Anesthesia Reactions: No Organ Transplant: No Chemotherapy: No Radiation Therapy: No Hyperbaric Therapy: No Human Immunodeficiency Virus (HIV): No Measles: No Mumps: No Rubella ([place] Measles): No Pertussis: No Cancer: No Cervical Cancer: No Lung Cancer: No Ovarian Cancer: No Surgical History Carotid Endarterectomy: No Coronary Artery Bypass Graft: No Valve Replacement: No Hysterectomy: No Pacemaker: No Thyroidectomy: No Subjective Visit Visit for: follow up visit and knee Immunization / Flu Flu Vaccine in the Last 12 Months: No Flu Vaccine Exclusion Criteria: No Exclusion Criteria History of Present Illness Chief complaint: Left knee pain Jeaneth is a pleasant 49-year-old female with a left septic knee. She is on IV antibiotics still. She is here for her first postop visit. She is using a wheelchair and reports the pain is significantly better than before surgery. She is very happy. She is still in a shelter getting IV antibiotic Pain Pain level (0-10): 7 Pain duration: ALL DAY Pain location: inside (medial) and anterior Pain quality: sharp and aching Pain timing: night and increases with activity Ambulatory data Ambulatory device: other (specify) (WHEEL CHAIR) Treatments Improvement with previous injections: No Improvement with PT: No Improvement with NSAIDS: no Review of Systems Review of Systems: All systems negative unless otherwise noted in HPI.
[2025-03-16 10:43] VITALS: BP 121/76; PULSE 75; RESP 18; TEMP 36.6; O2SAT 93; BMI 35.2
== END 2025-03-16 10:53 | disposition home or self-care (01) ==
LOC: HODSRG 09:39
PROVIDERS: Supervising Provider Orthopaedic Surgery Adult Reconstructive Orthopaedic Surgery; Visit Provider Orthopaedic Surgery Adult Reconstructive Orthopaedic Surgery
DX: M00.9 Pyogenic arthritis, unspecified (principal); M25.562 Pain in left knee; Z98.890 Other specified postprocedural states; E66.9 Obesity, unspecified; Z68.35 Body mass index [BMI] 35.0-35.9, adult
CPT/HCPCS: 99213; G0463

== ENCOUNTER 2025-04-13 10:50 | Outpatient (AMB) | payer MEDICAID, SELFPAY ==
--- NOTE | 2025-04-13 11:05 | PD.ORTHCLVIS ---
Vital signs 04/13/25 11:16 Height 1.65 m Height Method Stated Weight 96.162 kg Weight Measurement Method Standing Scale BMI 35.3 BP 140/76 H Blood Pressure Source Automatic Cuff Blood Pressure Location Left Upper Arm Position Sitting Respiration 18 Pulse 88 Pulse Source Monitor Temp 98.0 F Temp Source Temporal Artery Scan Pulse Oximetry (%) 90 L Oxygen Delivery Method Room Air Med/Allergies Allergies & Medications Allergies No Known Allergies Allergy (Verified 04/13/25 11:16) Medication Reconciliation escitalopram oxalate 10 mg tablet 10 mg PO QDAY 01/28/24 [History Confirmed 04/13/25] gabapentin 600 mg tablet 600 mg PO TID 01/28/24 [History Confirmed 04/13/25] methadone 5 mg tablet 140 mg PO 0600 01/28/24 [History Confirmed 04/13/25] olanzapine 5 mg tablet 5 mg PO HS 01/28/24 [History Confirmed 04/13/25] albuterol sulfate 90 mcg/actuation aerosol inhaler 2 inh inhalation QID PRN shortness of breath or wheezing #8.5 grams 04/08/24 [Rx Confirmed 04/13/25] hydrocodone 10 mg-acetaminophen 325 mg tablet 1 tab PO Q6H PRN pain #20 tabs 12/23/24 [Rx Confirmed 04/13/25] quetiapine 50 mg tablet (Seroquel) 50 mg PO ONCE HS 02/28/25 [History Confirmed 04/13/25] trazodone 50 mg tablet 50 mg PO HS 02/28/25 [History Confirmed 04/13/25] ceftriaxone 2 gram/50 mL in dextrose (iso-osm) intravenous piggyback 2 g (50 mL) IV 2100 #24 ea 03/06/25 [Rx Confirmed 04/13/25] fluconazole 100 mg tablet 400 mg (4 x 100 mg) PO QDAY 3 months #360 tabs 03/06/25 [Rx Confirmed 04/13/25] Exam Exam Patient is in no acute distress and is cooperative with the examination today. Patient has a normal mood and affect. Breathing is nonlabored. In no respiratory distress. Bilateral extremities were evaluated and demonstrates sensation intact to light touch. Palpable pedal pulses are present. No significant edema is present. Left knee incision is clean dry and intact. Range of motion is 5 to 50 degrees Assessment and Plan Problem List (1) Arthritis of left knee: Status: Acute Plan: Patient is a 49-year-old female with a septic arthritis of the left knee status post washout. She is doing well. We recommend follow-up in approximately 3 months or as needed. We discussed that doing a total knee replacement would be very difficult with her given her drug history and the fact that she has a prior septic arthritis in her knee Office Procedures GNS Level of Care Nursing/Assessment Patient Status: Established Patient Nursing Assessment/Reassesment: Medication Reconciliation, Update PMH in EMR and Vital Signs Coordination of Care: Complex Care and Chronic Disease 1-5, Education Complex Pt/Fam, Consent,records obtained, informed consent, Results/Orders obtained and Staff clarify orders Established Patient Charge Established Patient Point Assignment: 95 Established Patient Point Charge: EP Level 3 (80-115) MA Intake Visit Data Collection New Patient or Established: Established Patient (seen at [facility] within 3 years) Reason for Visit:: LEFT KNEE FOLLOW UP Seen by Clinical Staff ONLY (RN/MA): No PCP or OBGYN visit in last 3 months: Yes Hx Now: No Do You Feel Safe at Home: Yes Authorities Contacted: N/A Questionairres Past Medical History Past Medical History Have you ever been diagnosed with any of the following: Neurological Problems Cerebrovascular Accident (CVA): No Transient Ischemic Attacks (TIA): No Dementia: No Alzheimer's Disease: No Parkinson's Disease: No Brain Tumor: No Meningitis: No Seizures: No Epilepsy: No Multiple Sclerosis: No Cerebral Palsy: No Guillain-[place] Syndrome: No Spina Bifida: No Paralysis: No Peripheral Neuropathy: No Davis's Palsy: No Subdural Hematoma: No Migraine: No Head Trauma: No Spinal Cord Injury: No Traumatic Brain Injury: No Cardiology Problems Congestive Heart Failure: No Respiratory Problems Chronic Obstructive Pulmonary Disease (COPD): No Asthma: No Bronchitis: No Emphysema: No Pneumonia: No Pulmonary Edema: No Sleep Apnea: No Stomache/Intestinal Problems Hepatitis: No Pancreatitis: No Gall Bladder Disease: Yes Gastrointestinal Bleed: No Ulcerative Colitis: No Ulcer: No Colorectal Cancer: No Irritable Bowel: No Obstructive Bowel: No Hiatal Hernia: No Hemorrhoids: No Gastroesophageal Reflux Disease: No Obesity: Yes Genital/Urinary Problems Renal Disease: No Kidney Stones: No Polycystic Kidney Disease: No Neurogenic Bladder: No Inguinal Hernia: No Dialysis: No Reproductive Problems Breast Cancer: No Endometriosis: No Genital Herpes: No Gonorrhea: No Pelvic Inflammatory Disease: No Previous Pregnancies: No Syphilis: No Uterine Prolapse: No Musculoskeletal Problems Muscular Dystrophy: No Bone Cancer: No Scoliosis: No Head,Eye,Nose,Throat Problems Cataracts: No Glaucoma: No Blind: No Retinal Detachment: No Macular Degeneration: No Chronic Ear Infections: No Deafness: No Eye Prosthesis: No Endocrine Problems Diabetes Mellitus Type 1: No Diabetes Mellitus Type 2: No Blood Problems Anemia: No Leukemia: No Hemophilia: No Thalassemia: No Sickle Cell Disease: No Psychologic Problems Schizophrenia: No Recreational Drug Use: No Bipolar Disorder: No Depression: No Anxiety: No Behavior Problems: No Self-Mutilation: No Attention Deficit Disorder: No Attention Deficit Hyperactivity Disorder: No Depression: No Post Traumatic Stress Disorder: No Eating Disorder: No Other Problems Hospitalization: No Down Syndrome: No Autism: No Developmental Delay: No Shingles: No Falls: No Blood Transfusions: Yes Blood Transfusion Reaction: No Anesthesia Reactions: No Organ Transplant: No Chemotherapy: No Radiation Therapy: No Hyperbaric Therapy: No Human Immunodeficiency Virus (HIV): No Measles: No Mumps: No Rubella ([place] Measles): No Pertussis: No Cancer: No Cervical Cancer: No Lung Cancer: No Ovarian Cancer: No Surgical History Carotid Endarterectomy: No Coronary Artery Bypass Graft: No Valve Replacement: No Hysterectomy: No Pacemaker: No Thyroidectomy: No Subjective Visit Visit for: follow up visit and knee Immunization / Flu Flu Vaccine in the Last 12 Months: No Flu Vaccine Exclusion Criteria: No Exclusion Criteria History of Present Illness Chief complaint: Left knee pain Jeaneth is a pleasant 49-year-old female with a left septic knee. She has finished her IV antibiotics and is now on oral antibiotics . She is using a wheelchair and reports the pain is significantly better than before surgery. Pain Pain level (0-10): 7 Pain duration: ALL DAY Pain location: inside (medial) and anterior Pain quality: sharp and aching Pain timing: night and increases with activity Ambulatory data Ambulatory device: other (specify) (WHEEL CHAIR) Treatments Improvement with previous injections: No Improvement with PT: No Improvement with NSAIDS: no Review of Systems Review of Systems: All systems negative unless otherwise noted in HPI.
[2025-04-13 11:16] VITALS: BP 140/76; PULSE 88; RESP 18; TEMP 36.7; O2SAT 90; BMI 35.3
== END 2025-04-13 11:08 | disposition home or self-care (01) ==
LOC: HODSRG 10:50
PROVIDERS: Supervising Provider Orthopaedic Surgery Adult Reconstructive Orthopaedic Surgery; Visit Provider Orthopaedic Surgery Adult Reconstructive Orthopaedic Surgery
DX: M00.9 Pyogenic arthritis, unspecified (principal); Z98.890 Other specified postprocedural states; E66.9 Obesity, unspecified; Z68.35 Body mass index [BMI] 35.0-35.9, adult
CPT/HCPCS: 99213; G0463